=== PATIENT | female | born 1960 | race Caucasian/White ===

== ENCOUNTER 2016-06-09 11:14 | Emergency (ER) | payer OTHER ==
[~2016-06-09] VITALS: Ht 160 cm; Wt 69.3 kg
[~2016-06-09 11:14] MED LIST: ADVIN25050 INH; ALBUAER2 INH; AMLO10TA4 PO; ATEN-174 PO; CLOB-65 TOP; EFFSR150 PO; EFFSR75 PO; GFNSR600 PO; HYDR25TA4 PO; IPRASOL4 INH; LAMO25TA PO; LSN40 PO; LVQ750 PO; METF1TAB85 PO; SIMV10TA5 PO; SPRIN INH; TRAM-453 PO
[2016-06-09 11:16] VITALS: TEMP 37; Ht 160 cm; Wt 69.3 kg
[2016-06-09] MEDS ORDERED: SODIUM CHLORIDE 0.9% 500ML 500 ML IV STA (11:32)
[2016-06-09] MEDS ORDERED: OPTIRAY 320 IV PRN (11:45)
[2016-06-09 12:21] LABS: BASO % 0.3 %; BASO ABS # 0.02 K/uL (0-0.2); COMPLETE YES; EOS % 1.5 %; HEMATOCRIT 41.8 % (37-47); IG% 0.3 %; LYMPH % 30.2 %; LYMPH ABS # 1.85 K/uL (1.2-3.4); MEAN CELL VOLUME 92.5 fL (80-100); MEAN CORPUSCULAR HGB CONC 35.6 g/dl (32-36); MEAN PLATELET VOLUME 10.6 fL (7.4-10.4); MONO % 11.3 %; NEUT % 56.4 %; PLATELET COUNT 240 K/uL (130-400); RED BLOOD COUNT 4.52 M/uL (4.2-5.4); WHITE BLOOD COUNT 6.12 K/uL (4.8-10.8)
[2016-06-09 12:41] LABS: ALT/SGPT 51 U/L (12-78); AST/SGOT 32 U/L (15-37); BLOOD UREA NITROGEN 17 mg/dl (7-18); CALCIUM 8.7 mg/dl (8.5-10.1); CARBON DIOXIDE 25 mmol/L (21-32); CHLORIDE 104 mmol/L (98-107); CREATININE 0.98 mg/dl (0.60-1.20); GLUCOSE 98 mg/dl (70-99); POTASSIUM 3.5 mmol/L (3.5-5.1); SODIUM 141 mmol/L (136-145)
[2016-06-09 12:46] LABS: ALKALINE PHOSPHATASE 128 U/L (45-117)
--- NOTE | 2016-06-09 13:03 | DIAGNOSTIC IMAGING REPORT ---
CHEST ONE VIEW PORTABLE CLINICAL HISTORY: Abdominal pain and weakness. COMPARISON STUDY: Chest radiograph March 28, 2015. FINDINGS: Lung volumes are normal. Lungs are clear. There is no pneumothorax or pleural effusion. A nodular density within the left upper lung is unchanged from prior exam and may reflect a calcified nodule or vessel on end. Cardiac size is normal. Mediastinal contours are normal. There is no evidence of pulmonary edema. There is possible calcific tendinitis of the right rotator cuff. IMPRESSION: No acute cardiopulmonary findings. Electronically signed by: Beck Malloy M.D. 06/09/2016 1:02 PM Dictated Date/Time: 06/09/2016 1:01 PM
--- NOTE | 2016-06-09 13:56 | DIAGNOSTIC IMAGING REPORT ---
CT OF THE ABDOMEN AND PELVIS WITH CONTRAST CLINICAL HISTORY: Mid abdominal pain and nausea COMPARISON STUDY: None. TECHNIQUE: Following IV administration of 118 mL of Optiray-320, axial images of the abdomen and pelvis were obtained from the lung bases to the proximal femurs. Images were reviewed in the axial, sagittal, and coronal planes. IV contrast was administered without complication. CT DOSE: 338.44 mGy.cm FINDINGS: Visualized portions of the lower chest demonstrate a moderate sized hiatal hernia. The liver, spleen, adrenal glands, kidneys and pancreas are normal with the exception of left renal scarring. There is no hydronephrosis. There is no peripancreatic or pericholecystic infiltration. There is no biliary or pancreatic ductal dilatation. There is no bowel obstruction. The caliber and wall thickness of small and large bowel are normal. There is no lymphadenopathy. Skeletal structures are unremarkable. The appendix is normal. IMPRESSION: 1. No acute process within the abdomen or pelvis. 2. Moderate sized hiatal hernia. 3. Mild multifocal left renal scarring. Electronically signed by: Beck Malloy M.D. 06/09/2016 1:55 PM Dictated Date/Time: 06/09/2016 1:48 PM
[2016-06-09 14:23] VITALS: BP 147/70; PULSE 124; O2SAT 96
[2016-06-09 14:23] LABS: MANUAL MICROSCOPIC REQUIRED? NO; URINE APPEARANCE CLEAR (CLEAR); URINE BILIRUBIN NEG (NEG); URINE COLOR YELLOW; URINE NITRITE NEG (NEG); UROBILINOGEN NEG (NEG)
[2016-06-09 14:26] LABS: REVIEW REQ? NO
[2016-06-09 14:27] LABS: ZZUR CULT IF INDIC CLEAN CATCH NO
[2016-06-09] MEDS ORDERED: ONDA4TAB10 SL (14:44)
--- NOTE | 2016-06-09 14:48 | EMERGENCY ROOM VISIT NOTE ---
History First contact with patient: 11:20 Chief Complaint: ABDOMINAL PAIN Stated Complaint: FLU SYMPTOMS Nursing Triage Summary: PT C/O ABDOMINAL PAIN AND FLU LIKE SYMPTOMS. History of Present Illness The patient is a 56 year old female who presents to the Emergency Room with complaints of abdominal pain and generalized weakness over the past days. The patient states that over the past 4-5 days, she has had weakness, abdominal pain , and constipation. She states one of her family members does have the flu. The patient did receive a flu shot this year. She reports associated nausea, but no vomiting. She has had some mild coughing, but denies any chest pain or shortness of breath. The patient does report some mild body aches. She denies any fevers, sore throats, neck pain/stiffness, headaches, urinary symptoms or blood in her stools. She has a history of diabetes and was recently diagnosed with hepatitis C. Review of Systems A complete 10-point Review of Systems was discussed with the patient, with pertinent positives and negatives listed in the History of Present Illness. All remaining Review of Systems questions can be considered negative unless otherwise specified. Past Medical/Surgical History Medical Problems: (1) Bronchitis (2) Depression (3) Diabetes mellitus (4) Dyslipidemia (5) HTN (hypertension) Surgical Problems: (1) H/O hemorrhoidectomy Family History Patient reports no known family medical history. Social History Smoking Status: Current Every Day Smoker Alcohol Use: occasionally Current/Historical Medications Scheduled Amlodipine Besylate (Norvasc), 10 MG PO DAILY Atenolol (Tenormin), 50 MG PO DAILY Fluticasone Prop/Salmeterol (Advair Diskus 250-50 Mcg/Dose), 1 PUFF INH BID Guaifenesin Ext Rel (Mucinex Ext Rel), 600 MG PO Q12 Hydrochlorothiazide (Hctz), 25 MG PO DAILY Lamotrigine (Lamictal), 25 MG PO BID Lisinopril (Lisinopril), 40 MG PO DAILY Metformin Hcl (Metformin Hcl Er), 2 TAB PO DAILY Ondasetron Odt (Zofran Odt), 4 MG SL Q6H Simvastatin (Zocor), 10 MG PO QPM Tiotropium [place] (Spiriva Handihaler), 1 PUFF INH QAM Venlafaxine Hcl (Effexor Extended Rel), 75 MG PO DAILY Venlafaxine Hcl (Effexor Extended Rel), 150 MG PO DAILY Scheduled PRN Ipratropium-Albuterol (Duoneb), 3 ML INH Q4R PRN for dyspnea/wheezing Allergies Coded Allergies: Acetaminophen (Verified Allergy, Unknown, hives, 06/09/16) Oxycodone (Verified Allergy, Unknown, hives, 06/09/16) Physical Exam Vital Signs Date Time Temp Pulse Resp B/P Pulse Ox O2 Delivery O2 Flow Rate FiO2 06/09/16 14:23 124 18 147/70 96 Room Air 06/09/16 13:11 58 20 115/64 94 Room Air 06/09/16 11:57 70 06/09/16 11:16 37.0 73 18 118/82 96 Room Air Physical Exam VITALS: Vitals are noted on the nurse's note and reviewed by myself. Vital signs stable. GENERAL: This is a 56-year-old female, in no acute distress, nondiaphoretic, well-developed well-nourished. SKIN: Capillary reflex less than 2 seconds. HEENT: Normocephalic. PERRLA. EOMI. Nares patent. Mucous membranes moist. Neck is supple without nuchal rigidity. HEART: Regular rate and rhythm without murmurs gallops or rubs. LUNGS: Clear to auscultation bilaterally without wheezes, rales or rhonchi. ABDOMEN: Positive bowel sounds x 4. Abdomen is soft. There is tenderness of the epigastric region and mid abdomen. No guarding or rebound tenderness. Pompa sign negative. NEURO: Patient was alert and oriented to person place and time. Medical Decision & Procedures ER Provider Diagnostic Interpretation: CHEST ONE VIEW PORTABLE FINDINGS: Lung volumes are normal. Lungs are clear. There is no pneumothorax or pleural effusion. A nodular density within the left upper lung is unchanged from prior exam and may reflect a calcified nodule or vessel on end. Cardiac size is normal. Mediastinal contours are normal. There is no evidence of pulmonary edema. There is possible calcific tendinitis of the right rotator cuff. IMPRESSION: No acute cardiopulmonary findings. CT OF THE ABDOMEN AND PELVIS WITH CONTRAST FINDINGS: Visualized portions of the lower chest demonstrate a moderate sized hiatal hernia. The liver, spleen, adrenal glands, kidneys and pancreas are normal with the exception of left renal scarring. There is no hydronephrosis. There is no peripancreatic or pericholecystic infiltration. There is no biliary or pancreatic ductal dilatation. There is no bowel obstruction. The caliber and wall thickness of small and large bowel are normal. There is no lymphadenopathy. Skeletal structures are unremarkable. The appendix is normal. IMPRESSION: 1. No acute process within the abdomen or pelvis. 2. Moderate sized hiatal hernia. 3. Mild multifocal left renal scarring. Laboratory Results 06/09/16 11:52 Red Blood Count 4.52, Mean Corpuscular Volume 92.5, Mean Corpuscular Hemoglobin 33.0, Mean Corpuscular Hemoglobin Concent 35.6, Mean Platelet Volume 10.6, Neutrophils (%) (Auto) 56.4, Lymphocytes (%) (Auto) 30.2, Monocytes (%) (Auto) 11.3, Eosinophils (%) (Auto) 1.5, Basophils (%) (Auto) 0.3, Neutrophils # (Auto ) 3.45, Lymphocytes # (Auto) 1.85, Monocytes # (Auto) 0.69, Eosinophils # (Auto ) 0.09, Basophils # (Auto) 0.02 06/09/16 11:52 Test 06/09/16 11:44 06/09/16 11:52 06/09/16 14:10 Influenza Type A Antigen Neg for Influ A (NEG) Influenza Type B Antigen Neg for Influ B (NEG) White Blood Count 6.12 K/uL (4.8-10.8) Red Blood Count 4.52 M/uL (4.2-5.4) Hemoglobin 14.9 g/dL (12.0-16.0) Hematocrit 41.8 % (37-47) Mean Corpuscular Volume 92.5 fL (80-100) Mean Corpuscular Hemoglobin 33.0 pg (25-34) Mean Corpuscular Hemoglobin Concent 35.6 g/dl (32-36) Platelet Count 240 K/uL (130-400) Mean Platelet Volume 10.6 fL (7.4-10.4) Neutrophils (%) (Auto) 56.4 % Lymphocytes (%) (Auto) 30.2 % Monocytes (%) (Auto) 11.3 % Eosinophils (%) (Auto) 1.5 % Basophils (%) (Auto) 0.3 % Neutrophils # (Auto) 3.45 K/uL (1.4-6.5) Lymphocytes # (Auto) 1.85 K/uL (1.2-3.4) Monocytes # (Auto) 0.69 K/uL (0.11-0.59) Eosinophils # (Auto) 0.09 K/uL (0-0.5) Basophils # (Auto) 0.02 K/uL (0-0.2) RDW Standard Deviation 43.2 fL (36.4-46.3) RDW Coefficient of Variation 12.8 % (11.5-14.5) Immature Granulocyte % (Auto) 0.3 % Immature Granulocyte # (Auto) 0.02 K/uL (0.00-0.02) Anion Gap 12.0 mmol/L (3-11) Est Creatinine Clear Calc Drug Dose 59.1 ml/min Estimated GFR () 74.2 Estimated GFR (Non- 64.0 BUN/Creatinine Ratio 17.0 (10-20) Calcium Level 8.7 mg/dl (8.5-10.1) Total Bilirubin 0.3 mg/dl (0.2-1) Aspartate Amino Transf (AST/SGOT) 32 U/L (15-37) Alanine Aminotransferase (ALT/SGPT) 51 U/L (12-78) Alkaline Phosphatase 128 U/L (45-117) Troponin I < 0.015 ng/ml (0-0.045) Total Protein 7.1 gm/dl (6.4-8.2) Albumin 3.5 gm/dl (3.4-5.0) Globulin 3.6 gm/dl (2.5-4.0) Albumin/Globulin Ratio 1.0 (0.9-2) Lipase 317 U/L (73-393) Urine Color YELLOW Urine Appearance CLEAR (CLEAR) Urine pH 6.0 (4.5-7.5) Urine Specific [place] 1.010 (1.000-1.030) Urine Protein NEG (NEG) Urine Glucose (UA) NEG (NEG) Urine Ketones NEG (NEG) Urine Occult Blood NEG (NEG) Urine Nitrite NEG (NEG) Urine Bilirubin NEG (NEG) Urine Urobilinogen NEG (NEG) Urine Leukocyte Esterase NEG (NEG) Medications Administered Medications (Trade) Dose Ordered Sig/Chacha Route Start Time Stop Time Status Last Admin Dose Admin Sodium Chloride (Nss 500ml) 500 ml @ 999 mls/hr Q31M STAT IV 2/12/17 11:32 06/09/16 12:02 DC 06/09/16 11:56 999 MLS/HR Medical Decision Differential diagnosis includes influenza, gastroenteritis, colitis, diverticulitis, pneumonia, viral syndrome among others. The patient was evaluated as above. Labs were drawn and IV access was obtained. Imaging studies were performed and read by radiology as above. The patient was medicated with a 500 mL bolus of normal saline. The patient was reassessed multiple times during their stay in the emergency department and remained in stable condition. The patient is a 56-year-old female who presents today complaining of generalized weakness, fatigue and mid abdominal pain. Labs revealed no leukocytosis, anemia or concerning electrolyte abnormalities. Urinalysis was not suggestive of infection. Influenza was negative. CT of the abdomen and pelvis showed no acute findings. Chest x-ray was unremarkable. The patient's symptoms are likely secondary to a viral illness. She was informed of all findings. She was given a prescription for Zofran for nausea. She was instructed to follow-up with her primary care provider for further evaluation of any ongoing symptoms. Based on the patient's presentation, lab results, and imaging studies, I feel the patient is stable for outpatient treatment. The patient's case was reviewed with Dr. Rios, ED attending physician, who agreed with my assessment and treatment plan. Discharge instructions were reviewed with the patient. The patient verbalized understanding of my assessment and treatment plan and was discharged home in good condition. Impression Primary Impression: Epigastric abdominal pain Additional Impression: Fatigue Departure Information Dispostion Home / Self-Care Condition GOOD Prescriptions Ondasetron Odt (ZOFRAN ODT) 4 Mg Tab 4 MG SL Q6H for Nausea, #15 TAB Prov: Lynn Alan .SHERRELL 06/09/16 Referrals Breana Garcia M.D. (PCP) Patient Instructions My [facility] Additional Instructions You have been prescribed Zofran to be used for any nausea or vomiting. Take as prescribed. Rest and drink plenty of fluids. Follow-up with your primary care provider in 2-3 days. Return to the emergency department with worsening of your current condition or any new/concerning symptoms. Problem Qualifiers Additional Impression: Fatigue Fatigue type: unspecified Qualified Codes: R53.83 - Other fatigue
== END 2016-06-09 14:45 | disposition home or self-care (01) ==
LOC: C.EDB 11:15 → C.EDA 14:45
DX: R10.13 Epigastric pain (principal); R53.83 Other fatigue; E11.9 Type 2 diabetes mellitus without complications; I10 Essential (primary) hypertension; F32.9 Major depressive disorder, single episode, unspecified; E78.5 Hyperlipidemia, unspecified; B19.20 Unspecified viral hepatitis C without hepatic coma; F17.200 Nicotine dependence, unspecified, uncomplicated; Z98.890 Other specified postprocedural states; Z79.84 Long term (current) use of oral hypoglycemic drugs; Z79.899 Other long term (current) drug therapy

== ENCOUNTER 2016-07-01 10:45 | Emergency (ER) | payer OTHER ==
[~2016-07-01] VITALS: Ht 160 cm; Wt 70.0 kg
[~2016-07-01 10:45] MED LIST changes: -ALBUAER2 INH; -CLOB-65 TOP; -LVQ750 PO; +ONDA4TAB10 SL; -TRAM-453 PO
[2016-07-01 10:47] VITALS: TEMP 37.2; Ht 160 cm; Wt 70.0 kg
--- NOTE | 2016-07-01 11:22 | DIAGNOSTIC IMAGING REPORT ---
LEFT KNEE 3 VIEWS CLINICAL HISTORY: Left knee pain status post trauma COMPARISON: None. DISCUSSION: No acute fractures are visualized. There are degenerative changes with lateral joint compartment spurring. There are tiny dorsal patellar spurs. There is a subtle lucency involving the lateral aspect of the medial femoral condyle. An osteochondral defect cannot be excluded. The patient has persistent pain, an MRI could be obtained in follow-up IMPRESSION: 1. No acute fractures 2. Osteoarthritic changes 3. Subtle lucency involving the lateral aspect of the medial femoral condyle. An osteochondral defect cannot be excluded. Electronically signed by: Jackson Bonilla M.D. 07/01/2016 11:20 AM Dictated Date/Time: 07/01/2016 11:19 AM
[2016-07-01 11:40] VITALS: BP 122/78; PULSE 69; O2SAT 96
--- NOTE | 2016-07-02 11:00 | EMERGENCY ROOM VISIT NOTE ---
ED Visit Note First contact with patient: 10:56 Chief Complaint: Left knee pain. History of Present Illness: Ms. Parks is a 56-year-old white female who is brought into the ED the wheelchair complaining of left knee pain. Patient reports she has a history of her knee "popping out". From her description of this it appears that she may be able to dislocate or subluxate her patella. She has never had this evaluated in the past. Patient reports approximately 2 hours ago she was standing at a kitchen counter and pulling out a drawer and her knee popped out. Since that time she has been having pain over the anterior aspect of the knee predominately over the anterior medial tibia area. She describes her pain as a sharp sensation. She rates her discomfort 8/10. The pain is nonradiating. The pain worsens with flexion beyond 20 and palpation. She has not identified any alleviating factors related to the pain. She has not taken any medications for pain prior to arrival at the hospital. She denies any associated symptoms including hip pain, proximal thigh pain, distal tibia/fibula pain, ankle pain, leg/foot weakness/numbness/tingling. Additionally she denies any previous significant injuries or surgeries to the knee. Review of Systems: As noted above in history of present illness. Past Medical History: Diabetes, hypertension, bronchitis, pneumonia, status post hemorrhoidectomy. Current Medications: Medications Dose Route/Sig Max Daily Dose Days Date Category Dose Instructions Zofran Odt (Ondansetron HCl) 4 Mg Tab 4 Mg SL Q6H 06/09/16 Rx Duoneb (Ipratropium-Albuterol) 3 Ml Nebu 3 Ml INH Q4R PRN 03/31/15 Rx Lamictal (Lamotrigine) 25 Mg Tab 25 Mg PO BID 03/16/15 Reported Metformin Hcl Er (Metformin Hcl) 500 Mg Tab 2 Tab PO DAILY 90 03/16/15 Reported Norvasc (Amlodipine Besylate) 10 Mg Tab 10 Mg PO DAILY 03/16/15 Reported Zocor (Simvastatin) 10 Mg Tab 10 Mg PO QPM 03/16/15 Reported Hctz (Hydrochlorothiazide) 25 Mg Tab 25 Mg PO DAILY 03/16/15 Reported Effexor Extended Rel (Venlafaxine Hcl) 150 Mg Capcr 150 Mg PO DAILY 03/16/15 Reported TAKE WITH THE 75MG DOSE Effexor Extended Rel (Venlafaxine Hcl) 75 Mg Capcr 75 Mg PO DAILY 03/16/15 Reported TAKE WITH THE 150MG DOSE Tenormin (Atenolol) 50 Mg Tab 50 Mg PO DAILY 03/16/15 Reported Lisinopril 40 Mg Tab 40 Mg PO DAILY 03/16/15 Reported Allergies to Medications: Tylenol, oxycodone. Social History: Patient is currently employed; she feels safe in her home environment; she admits to tobacco and alcohol use. Physical Examination: Vital Signs: Date Time Temp Pulse Resp B/P Pulse Ox O2 Delivery O2 Flow Rate FiO2 07/01/16 11:40 69 20 122/78 96 Room Air 07/01/16 10:47 37.2 79 18 106/68 96 Room Air GENERAL: 56-year-old female in mild to moderate distress due to pain, nontoxic- appearing, afebrile and hemodynamically stable. NEUROLOGICAL: Awake, alert and oriented to person, place and time. Answering questions appropriately and following commands. Good hand eye coordination. No focal motor sensory deficits. LEFT LOWER EXTREMITY: No gross bony deformity. No shortening or malrotation. No tenderness over the hip, thigh, distal lower leg, ankle or foot. Mild to moderate tenderness over the anterior medial aspect of the tibia without bony deformity or crepitus. No tenderness over the tibial tuberosity or patellar tendon. No joint effusion. Negative bounce test. No tenderness over the medial or lateral joint lines. No laxity of the collateral or cruciate ligaments. No tenderness over the patella. Negative ballottement test. Unable to test the meniscus due to decreased range of motion and pain. With the knee stabilized patient does have full range of motion of the ankle with good muscle strength. Throughout the foot the skin was warm and pink and capillary refill is brisk. She is able to distinguish light sensations. No calf tenderness or cords. No dependent edema. ED Course: Patient is assessed as noted above. Left Knee X-Rays: Were read by myself and the radiologist showing no acute fractures or dislocations. Radiologist notes osteoarthritic changes and a subtle lucency involving the lateral aspect of the medial femoral condyle of questionable etiology. Patient was offered pain medications and refused. Patient was offered a knee immobilizer and nonweightbearing crutches and refused. Patient agreed to have an Nicholas wrap put on the area for support. Patient was educated about tonight's findings and instructed on her treatment plan; she verbalizes understanding and agreement with this plan. Clinical Impression: Acute left knee pain. Disposition: Patient discharged home in stable condition; prior to departure she was reassessed and subjectively reported she was feeling better and rated her discomfort 3/10. Plan: Patient was encouraged use 650 mg of ibuprofen every 6 hours as needed for pain ; she was instructed to take this with food and stop for stomach pain or indigestion. Additional comfort measures were discussed with the patient including the use of ice and Nicholas bandage support. Patient was encouraged to follow-up with orthopedics for specialty care and treatment. Patient was encouraged return ED for worsening/uncontrolled pain, swelling, lower leg weakness/numbness/tingling or any new/concerning symptoms.
== END 2016-07-01 11:45 | disposition home or self-care (01) ==
LOC: C.EDB 10:47 → C.EDD 11:45
DX: M25.562 Pain in left knee (principal); E11.9 Type 2 diabetes mellitus without complications; I10 Essential (primary) hypertension; Z79.899 Other long term (current) drug therapy

== ENCOUNTER 2017-01-17 13:25 | Emergency (ER) | payer OTHER ==
[~2017-01-17] VITALS: Ht 160 cm; Wt 71.0 kg
[~2017-01-17 13:25] MED LIST changes: -ADVIN25050 INH; -GFNSR600 PO; -ONDA4TAB10 SL; -SPRIN INH
[2017-01-17 13:27] VITALS: TEMP 36.9; Ht 160 cm; Wt 71.0 kg
--- NOTE | 2017-01-17 13:56 | EMERGENCY ROOM VISIT NOTE ---
History First contact with patient: 13:34 Chief Complaint: DIARRHEA Stated Complaint: DIARRHEA, WEAKNESS Nursing Triage Summary: pt to the ED with c/o all over abd pain back pain and n/v/d and weakness that started today while at work History of Present Illness The patient is a 56 year old female who presents to the Emergency Room with complaints of nausea, vomiting and diarrhea for 4 days. The patient's symptoms started 4 days ago with diarrhea. She then became nauseated and had multiple episodes of vomiting. She denies any significant abdominal pain. She denies any fever or chills. The patient felt fairly good for the last 2 days. Her symptoms returned today at work. She feels very weak. She denies any dark stools or bloody stools. No hematemesis or coffee-ground emesis. She denies any sick contacts. No antibiotic use. The patient does not have well water, however she was staying at a relative's house that does. Review of Systems 10 system review performed and negative unless noted in HPI or below Past Medical/Surgical History Medical Problems: (1) Bronchitis (2) Depression (3) Diabetes mellitus (4) Dyslipidemia (5) HTN (hypertension) Surgical Problems: (1) H/O hemorrhoidectomy Family History Patient reports no known family medical history. Social History Smoking Status: Current Every Day Smoker Alcohol Use: occasionally Occupation Status: employed Current/Historical Medications Scheduled Amlodipine Besylate (Norvasc), 10 MG PO DAILY Aspirin (Aspirin Ec), 81 MG PO DAILY Atenolol (Tenormin), 50 MG PO DAILY Dicyclomine Hcl (Bentyl), 20 MG PO Q8H Hydrochlorothiazide (Hctz), 25 MG PO DAILY Lamotrigine (Lamictal), 25 MG PO BID Lisinopril (Lisinopril), 40 MG PO DAILY Metformin Hcl (Metformin Hcl Er), 2 TAB PO DAILY Ondasetron Odt (Zofran Odt), 4 MG SL Q6H Simvastatin (Zocor), 10 MG PO QPM Venlafaxine Hcl (Effexor Extended Rel), 75 MG PO DAILY Venlafaxine Hcl (Effexor Extended Rel), 150 MG PO DAILY Scheduled PRN Ipratropium-Albuterol (Duoneb), 3 ML INH Q4R PRN for dyspnea/wheezing Physical Exam Vital Signs Date Time Temp Pulse Resp B/P (MAP) Pulse Ox O2 Delivery O2 Flow Rate FiO2 01/17/17 18:01 83 18 126/73 95 01/17/17 16:26 71 01/17/17 16:07 96 18 118/72 96 Room Air 01/17/17 14:14 75 16 105/60 97 Room Air 01/17/17 13:27 36.9 103 16 108/71 Physical Exam VITALS: Vitals are noted on the nurse's note and reviewed by myself. Vital signs stable. GENERAL: 56-year-old female, moderate discomfort SKIN: The skin was without rashes, erythema, edema, or bruising. HEAD: Normocephalic atraumatic. MOUTH: Mucous membranes dry. NECK: . No JVD. HEART: Regular rate and rhythm without murmurs gallops or rubs. LUNGS: Clear to auscultation bilaterally without wheezes, rales or rhonchi. No accessory muscle use. ABDOMEN: Positive bowel sounds x 4.Soft, no focal tenderness, without organomegaly. No guarding or rebound tenderness. MUSCULOSKELETAL: No muscle atrophy, erythema, or edema noted. Strength 5/5 throughout. NEURO: Patient was alert and oriented to person place and time. Normal sensation to touch. No focal neurological deficits. Medical Decision & Procedures Laboratory Results 01/17/17 14:05 Red Blood Count 4.16, Mean Corpuscular Volume 95.0, Mean Corpuscular Hemoglobin 32.9, Mean Corpuscular Hemoglobin Concent 34.7, Mean Platelet Volume 10.8, Neutrophils (%) (Auto) 81.6, Lymphocytes (%) (Auto) 14.4, Monocytes (%) (Auto) 3.1, Eosinophils (%) (Auto) 0.5, Basophils (%) (Auto) 0.2, Neutrophils # (Auto) 10.39, Lymphocytes # (Auto) 1.83, Monocytes # (Auto) 0.39, Eosinophils # (Auto) 0.07, Basophils # (Auto) 0.02 01/17/17 14:05 Test 01/17/17 14:05 White Blood Count 12.73 K/uL (4.8-10.8) Red Blood Count 4.16 M/uL (4.2-5.4) Hemoglobin 13.7 g/dL (12.0-16.0) Hematocrit 39.5 % (37-47) Mean Corpuscular Volume 95.0 fL (80-100) Mean Corpuscular Hemoglobin 32.9 pg (25-34) Mean Corpuscular Hemoglobin Concent 34.7 g/dl (32-36) Platelet Count 318 K/uL (130-400) Mean Platelet Volume 10.8 fL (7.4-10.4) Neutrophils (%) (Auto) 81.6 % Lymphocytes (%) (Auto) 14.4 % Monocytes (%) (Auto) 3.1 % Eosinophils (%) (Auto) 0.5 % Basophils (%) (Auto) 0.2 % Neutrophils # (Auto) 10.39 K/uL (1.4-6.5) Lymphocytes # (Auto) 1.83 K/uL (1.2-3.4) Monocytes # (Auto) 0.39 K/uL (0.11-0.59) Eosinophils # (Auto) 0.07 K/uL (0-0.5) Basophils # (Auto) 0.02 K/uL (0-0.2) RDW Standard Deviation 44.2 fL (36.4-46.3) RDW Coefficient of Variation 12.8 % (11.5-14.5) Immature Granulocyte % (Auto) 0.2 % Immature Granulocyte # (Auto) 0.03 K/uL (0.00-0.02) Anion Gap 11.0 mmol/L (3-11) Est Creatinine Clear Calc Drug Dose 48.9 ml/min Estimated GFR () 58.1 Estimated GFR (Non- 50.1 BUN/Creatinine Ratio 24.3 (10-20) Calcium Level 9.7 mg/dl (8.5-10.1) Magnesium Level 2.2 mg/dl (1.8-2.4) Total Bilirubin 0.3 mg/dl (0.2-1) Aspartate Amino Transf (AST/SGOT) 27 U/L (15-37) Alanine Aminotransferase (ALT/SGPT) 49 U/L (12-78) Alkaline Phosphatase 128 U/L (45-117) Total Protein 6.8 gm/dl (6.4-8.2) Albumin 3.3 gm/dl (3.4-5.0) Globulin 3.5 gm/dl (2.5-4.0) Albumin/Globulin Ratio 0.9 (0.9-2) Lipase 148 U/L (73-393) Date/Time Source Procedure Growth Status 01/17/17 15:36 Stool C.difficile Toxin B Gene (PCR) - Final No C. difficile toxin B gene detected Complete Medications Administered Medications (Trade) Dose Ordered Sig/Chacha Route Start Time Stop Time Status Last Admin Dose Admin Ondansetron HCl (Zofran Inj) 4 mg Q2H PRN IV 01/17/17 14:00 01/17/17 18:36 DC 01/17/17 14:11 4 MG Dicyclomine HCl (Bentyl Tab) 20 mg ONE ONCE PO 01/17/17 14:00 01/17/17 14:01 DC 01/17/17 14:21 20 MG Sodium Chloride 1,000 ml @ 999 mls/hr Q1H1M ONCE IV 01/17/17 14:00 01/17/17 15:00 DC 01/17/17 14:12 999 MLS/HR Sodium Chloride 1,000 ml @ 999 mls/hr Q1H1M ONCE IV 01/17/17 14:00 01/17/17 15:00 DC 01/17/17 14:12 999 MLS/HR Potassium Chloride (Kcl 10 Meq / Wtr) 10 meq NOW ONCE IV 01/17/17 15:45 01/17/17 15:46 DC 01/17/17 16:01 10 MEQ ED Course Patient was seen and examined Vital signs including blood pressure were reviewed medications list was verified with patient Labs were obtained, and a saline lock was established The patient was hydrated with 2 L of normal saline. She was given Zofran 4 mg IV for nausea. She was given 1 dose of Bentyl 20 mg po Upon reevaluation, the patient was resting comfortably in bed. Her nausea was better. Her workup was reviewed. The findings were discussed with the patient. She tolerated water without difficulty. I reviewed discharge instructions the patient. They voiced understanding and had no further questions. Medical Decision DIFFERENTIAL DIAGNOSIS: Gastroenteritis, Hepatitis, cholecystitis, cholangitis, biliary colic, pancreatitis, appendicitis, inguinal hernia, nephrolithiasis, inflammatory bowel disease, mesenteric adenitis, peptic ulcer disease, GERD, gastritis, pancreatitis,, bowel obstruction, splenic infarct, diverticulitis, mesenteric ischemia, metabolic, peritonitis, among others. This patient is a 56-year-old female that presents to the emergency department with complaints of nausea, vomiting and diarrhea. The patient did not have any focal abdominal tenderness. No signs of peritonitis. I did not suspect a surgical abdomen. She was hydrated and had good symptomatic control with Zofran and Bentyl in the emergency department. There was mild leukocytosis likely coinciding with a possible viral GI infection. Otherwise, her labs were unremarkable. She was given a prescription for an antiemetic and Bentyl. She was discharged in good condition. She did agree to return to the emergency department with any worsening symptoms. Otherwise, she will follow up with her primary care physician if her symptoms persist greater than 3-5 days. 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 (PCP) Patient Instructions [facility] Additional Instructions You were evaluated in the emergency department with nausea, vomiting and diarrhea. Follow clear liquid diet for the next 24 hours. This includes things such as mehnaz justo, broth, popsicles Zofran 4 mg tabs. Please take one sublingual tab every 6 hours as needed for nausea Bentyl 20 mg tabs. Please take 1 every 8 hours as needed for abdominal cramping. Please do not drink alcohol or drive well taking this medication as it will make you drowsy. Please follow-up with your primary care physician if your symptoms persist greater than 3 days Return to the emergency department if you have any of the following symptoms: -Fever of 103F or greater -Persistent vomiting - Persistent diarrhea -Lethargy -Chest pain -Shortness of breath -Worsening pain Work Instructions Return To Work: 2 days
[2017-01-17] MEDS ORDERED: ONDANSETRON INJ 2 MG/ML 2 ML VIAL IV PRN (14:00)
[2017-01-17] MEDS ORDERED: SODIUM CHLORIDE 0.9% 1000ML 1,000 ML IV ONE ×2 (14:00)
[2017-01-17] MEDS ORDERED: DICYCLOMINE HCL 20 MG TAB PO ONE (14:00)
[2017-01-17 14:28] LABS: BASO % 0.2 %; BASO ABS # 0.02 K/uL (0-0.2); COMPLETE YES; EOS % 0.5 %; HEMATOCRIT 39.5 % (37-47); IG% 0.2 %; LYMPH % 14.4 %; LYMPH ABS # 1.83 K/uL (1.2-3.4); MEAN CORPUSCULAR HEMOGLOBIN 32.9 pg (25-34); MEAN CORPUSCULAR HGB CONC 34.7 g/dl (32-36); MEAN PLATELET VOLUME 10.8 fL (7.4-10.4); MONO % 3.1 %; NEUT % 81.6 %; PLATELET COUNT 318 K/uL (130-400); RED BLOOD COUNT 4.16 M/uL (4.2-5.4); WHITE BLOOD COUNT 12.73 K/uL (4.8-10.8)
[2017-01-17 14:55] LABS: ALB/GLOB RATIO 0.9 (0.9-2); BUN/CREATININE RATIO 24.3 (10-20); CALCIUM 9.7 mg/dl (8.5-10.1); CREATININE 1.2 mg/dl (0.60-1.20)
[2017-01-17 14:58] LABS: POTASSIUM 3.4 mmol/L (3.5-5.1)
[2017-01-17 15:03] LABS: MAGNESIUM 2.2 mg/dl (1.8-2.4)
[2017-01-17] MEDS ORDERED: POTASSIUM CHLORIDE 10 MEQ / 100ML WTR IV ONE (15:45)
[2017-01-17] MEDS ORDERED: ASPI81TA28 PO (17:06)
[2017-01-17] MEDS ORDERED: DICY20TA35 PO (17:24)
[2017-01-17] MEDS ORDERED: ONDA4TAB10 SL (17:24)
[2017-01-17 18:01] VITALS: BP 126/73; PULSE 83; O2SAT 95
== END 2017-01-17 18:02 | disposition home or self-care (01) ==
LOC: C.EDB 13:27
DX: R11.2 Nausea with vomiting, unspecified (principal); R19.7 Diarrhea, unspecified; E11.9 Type 2 diabetes mellitus without complications; I10 Essential (primary) hypertension; E78.5 Hyperlipidemia, unspecified; F32.9 Major depressive disorder, single episode, unspecified; F17.200 Nicotine dependence, unspecified, uncomplicated; Z98.890 Other specified postprocedural states; Z79.82 Long term (current) use of aspirin; Z79.84 Long term (current) use of oral hypoglycemic drugs; Z79.899 Other long term (current) drug therapy

== ENCOUNTER 2019-09-22 22:32 | Observation (INO) ==
[2019-09-22] MEDS ORDERED: GLUCAGON 2 MG in SYRINGE 0 ML IV STA (22:53)
[2019-09-22] MEDS ORDERED: LORazepam 1 MG/2 ML VIAL IV STA (22:53)
[2019-09-22] MEDS ORDERED: NITROGLYCERIN SL 0.4 MG/TAB TAB SL STA (22:53)
[2019-09-22] MEDS ORDERED: SODIUM CHLORIDE 0.9% 1000ML 500 ML IV ONE (22:53)
[2019-09-22] MEDS ORDERED: GLUCAGON FOR INJ 1 MG VIAL ONE (22:57)
--- NOTE | 2019-09-22 22:57 | Emergency Department Note ---
Impression & Plan Acute esophageal obstruction, Precordial chest pain ED Provider Note NAME: ADDISON TERRELL AGE: 59 SEX: F : 1960 ARRIVES VIA: Walk-In INFORMANT: [Patient] ED PROVIDER(S): [Adryan Holbrook MD] CHIEF COMPLAINT: Food bolus HISTORY OF PRESENT ILLNESS: The patient is a 59-year-old female who presents to the ER with 2 hours of symptoms. She states that she was eating cubed beef when she felt something get caught in her esophagus. There was no difficulty with her breathing, no choking. She cannot swallow her saliva. She states that feels like the food may be caught in the upper esophagus, she describes the pain as severe. She does feel nauseated. The patient was in baseline health earlier, she had felt well throughout the best part of the day. The patient states that she did not ever have this issue before. REVIEW OF SYSTEMS: See HPI for pertinent positives and negatives. A total of ten systems were reviewed and were otherwise negative. PMHx/PSHx: See Below SOCIAL HISTORY: See Below. PHYSICAL EXAM: GENERAL: Patient is in moderate distress from the discomfort of her esophagus. Spitting out her saliva. HEENT: No acute trauma, normocephalic atraumatic, mucous membranes moist, no nasal congestion, no scleral icterus. NECK: No stridor, no adenopathy, no meningismus, trachea is midline. LUNGS: Clear to auscultation bilaterally, no wheeze, no rhonchi, breath sounds equal. HEART: No murmurs, there is a somewhat irregular rhythm, the rate is normal. ABDOMEN: Soft, nontender, bowel sounds positive, no hernias, no peritonitis. EXTREMITIES: No cyanosis or edema, full range of motion of all the joints without pain or difficulty, no signs for acute trauma. NEUROLOGIC: Oriented x 3, no acute motor or sensory deficits, no focal weakness. SKIN: No rash, no jaundice, no diaphoresis. DIFFERENTIAL DIAGNOSIS: Esophageal food bolus, esophageal stricture, esophageal ring, esophageal narrowing, esophagitis, esophageal rupture. EMERGENCY DEPARTMENT COURSE/PROCEDURES: ECG: Indication was chest pain. The EKG shows a sinus rhythm with multiple PVCs. The rate is 78. QTc is 469. There is no ST elevation. Continuous Cardiac Monitoring: An order was placed for continuous cardiac monitoring. The monitor shows a rate of 76 with sinus rhythm with PVCs. MEDICAL DECISION MAKING: There is a mild leukocytosis, this could be consistent with infection or just her stress and discomfort. There was no anemia. No significant electrolyte abnormality or kidney failure. Chest film did not show evidence for esophageal rupture, there was no mediastinal widening, no pneumonia or CHF. EKG showed sinus rhythm with PVCs. On exam, the patient seemed uncomfortable. She felt a fullness in her esophagus, she was spitting out her saliva. Patient received IV glucagon, IV Ativan and nitroglycerin sublingual, she was given a 500 cc saline bolus. Unfortunately, the medications mentioned above did not help her symptoms. She was still unable to swallow her saliva. I did speak with GI. The patient is going to the endoscopy suite for removal of her esophageal food impaction. The patient is aware of the need for the endoscopy. Case management has been informed. Past Med/Surg History Medical History Depression (Chronic) Diabetes mellitus (Chronic) Dyslipidemia (Chronic) Epigastric abdominal pain (Acute) HTN (hypertension) (Chronic) Surgical History H/O hemorrhoidectomy (Chronic) Family History Other Diabetes Heart disease Hypertension Social History Preferred Language: Dominican Feels Safe at Home: Yes Smoking Status: Current every day smoker Do You Dip or Chew Tobacco: No ; Hx Alcohol Use: No Hx Substance Use: No Allergies Allergies Allergy/AdvReac Type Severity Reaction Status Date / Time acetaminophen Allergy Unknown hives Verified 09/22/19 23:18 oxycodone Allergy Unknown hives Verified 09/22/19 23:18 Home Meds Home Medications Medication Instructions Recorded Confirmed amlodipine 10 mg PO QPM 05/21/18 09/22/19 diclofenac sodium 75 mg PO PM 05/21/18 09/22/19 lamotrigine 25 mg PO PM 05/21/18 09/22/19 lisinopril 40 mg PO QPM 05/21/18 09/22/19 metformin 1,000 mg PO PM 05/21/18 09/22/19 metoprolol succinate 50 mg PO QPM 05/21/18 09/22/19 venlafaxine 75 mg PO QPM 05/21/18 09/22/19 venlafaxine 150 mg PO QPM 05/21/18 09/22/19 rosuvastatin 5 mg PO DAILY 09/22/19 09/22/19 Previous Rx's Medication Instructions Recorded albuterol sulfate [Proventil HFA] 2 inha INH Q6H PRN #6.7 gm 07/12/18 Results & Data (ED) Vital Signs Vital Signs - 24 hr 09/22/19 22:33 09/22/19 22:42 09/22/19 22:45 Temperature 36.9 C Temperature Source Oral Pulse Rate 78 85 85 Pulse Rate [Right Finger] Pulse Rate from SpO2 Sensor 69 59 L Respiratory Rate 20 24 31 H Respiratory Effort / Characteristics Non-Labored Respiratory Depth Normal Respiratory Pattern Regular Blood Pressure 158/98 H 139/108 H Blood Pressure [Right Arm] Blood Pressure Mean 118 129 Blood Pressure Mean [Right Arm] Pulse Oximetry 96 95 93 Oxygen Delivery Method Room Air Oxygen Flow Rate Sepsis Recent Fever Within 48 Hours No Sepsis Action Taken by Nursing No Action Required 09/22/19 23:00 09/22/19 23:20 09/22/19 23:30 Temperature Temperature Source Pulse Rate 76 86 68 Pulse Rate [Right Finger] Pulse Rate from SpO2 Sensor Respiratory Rate 13 27 H 25 H Respiratory Effort / Characteristics Respiratory Depth Respiratory Pattern Blood Pressure 168/95 H 125/82 Blood Pressure [Right Arm] Blood Pressure Mean 128 95 Blood Pressure Mean [Right Arm] Pulse Oximetry 94 87 L 89 L Oxygen Delivery Method Oxygen Flow Rate Sepsis Recent Fever Within 48 Hours Sepsis Action Taken by Nursing 09/22/19 23:31 09/22/19 23:32 09/22/19 23:40 Temperature Temperature Source Pulse Rate 76 75 74 Pulse Rate [Right Finger] Pulse Rate from SpO2 Sensor 76 75 Respiratory Rate 26 H 22 19 Respiratory Effort / Characteristics Respiratory Depth Respiratory Pattern Blood Pressure 129/60 Blood Pressure [Right Arm] Blood Pressure Mean 93 Blood Pressure Mean [Right Arm] Pulse Oximetry 92 91 95 Oxygen Delivery Method Oxygen Flow Rate Sepsis Recent Fever Within 48 Hours Sepsis Action Taken by Nursing 09/22/19 23:50 09/23/19 00:00 09/23/19 00:01 Temperature Temperature Source Pulse Rate 83 82 78 Pulse Rate [Right Finger] Pulse Rate from SpO2 Sensor 80 77 73 Respiratory Rate 28 H 26 H 24 Respiratory Effort / Characteristics Respiratory Depth Respiratory Pattern Blood Pressure 145/90 H Blood Pressure [Right Arm] Blood Pressure Mean 101 Blood Pressure Mean [Right Arm] Pulse Oximetry 93 92 93 Oxygen Delivery Method Oxygen Flow Rate Sepsis Recent Fever Within 48 Hours Sepsis Action Taken by Nursing 09/23/19 00:10 Temperature Temperature Source Pulse Rate Pulse Rate [Right Finger] 102 H Pulse Rate from SpO2 Sensor Respiratory Rate 23 Respiratory Effort / Characteristics Respiratory Depth Respiratory Pattern Blood Pressure Blood Pressure [Right Arm] 145/90 H Blood Pressure Mean Blood Pressure Mean [Right Arm] 108 Pulse Oximetry 96 Oxygen Delivery Method Nasal Cannula Oxygen Flow Rate 2 Sepsis Recent Fever Within 48 Hours Sepsis Action Taken by Longterm Medications Current Medication List: was personally reviewed by me Laboratory Data Attestation: I reviewed the patient's lab results. Result diagrams: 09/22/19 22:40 09/22/19 22:40 Lab Results 09/22/19 09/22/19 Range/Units 22:40 22:40 WBC 13.10 H (4.8-10.8) K/uL RBC 4.58 (4.2-5.4) M/uL Hgb 14.6 (12.0-16.0) g/dL Hct 42.7 (37-47) % MCV 93.2 (80-100) fL MCH 31.9 (25-34) pg MCHC 34.2 (32-36) g/dL RDW Std Deviation 46.1 (36.4-46.3) fL RDW Coeff of Mike 13.6 (11.5-14.5) % Plt Count 350 (130-400) K/uL MPV 11.4 H (7.4-10.4) fL Sodium 139 (136-145) mmol/L Potassium 3.6 (3.5-5.1) mmol/L Chloride 106 (98-107) mmol/L Carbon Dioxide 28 (21-32) mmol/L Anion Gap 5.0 (3-11) BUN 23 H (7-18) mg/dl Creatinine 0.99 (0.6-1.2) mg/dl Est Cr Clr Drug Dosing Not Reportable Est GFR ( Amer) 71.8 Est GFR (Non-Af Amer) 61.9 BUN/Creatinine Ratio 23.3 H (10-20) Glucose 166 H (70-99) mg/dl Calcium 9.3 (8.5-10.1) mg/dl Administered Medications Discontinued Medications Glucagon (Glucagen) Confirm Administered Dose 2 mg .ROUTE .STK-MED ONE Stop: 09/22/19 22:58 Last Admin: 09/22/19 23:03 Dose: Not Given Documented by: [id number] Sodium Chloride (Nss 1000ml) 500 mls @ 999 mls/hr IV .Q31M ONE Stop: 09/22/19 23:23 Last Infusion: 09/22/19 23:39 Dose: 0 mls/hr Documented by: [id number] Admin: 09/22/19 23:03 Dose: 999 mls/hr Documented by: [id number] Lorazepam (Ativan) 1 mg in 2 mls @ 2 mls/min IV NOW STA Stop: 09/22/19 22:54 Last Admin: 09/22/19 23:03 Dose: 2 mls/min Documented by: [id number] Glucagon 2 mg/ Syringe 2 mls @ 1 mls/min IV NOW STA Stop: 09/22/19 22:54 Last Admin: 09/22/19 23:03 Dose: 1 mls/min Documented by: [id number] Nitroglycerin (Nitrostat) 0.4 mg SL NOW STA Stop: 09/22/19 22:54 Last Admin: 09/22/19 23:03 Dose: 0.4 mg Documented by: [id number] Imaging Data Attestation: I personally reviewed and interpreted this imaging study as follows: My Impression: Chest x-ray: There is no mediastinal widening, no pneumonia or cardiomegaly, there is no CHF. The lungs appear clear. Blood Pressure Blood Pressure Findings: Elevated blood pressure Blood Pressure Disposition: Referred to patients primary care provider Discharge Plan Visit Data *Final* Discharge Date/Time: 09/23/19 00:41 Chief Complaint: Food Bolus Stated Complaint: FOOD BOLUS ED Provider: Adryan Holbrook Discharge Problem: Acute esophageal obstruction, Precordial chest pain Patient Disposition: Admitted As Inpatient Condition: Fair Discharge Instructions Interventions: ED Discharge Assessment Last Done: 09/23/19 00:41
[2019-09-22 23:08] LABS: Hematocrit (blood only) 42.7 % (37-47); Hemoglobin 14.6 g/dL (12.0-16.0); Mean Corpuscular Hemoglobin 31.9 pg (25-34); Mean Corpuscular Hgb Conc 34.2 g/dL (32-36); Mean Corpuscular Volume 93.2 fL (80-100); Mean Platelet Volume 11.4 fL (7.4-10.4); Platelet Count 350 K/uL (130-400); RDW Coefficient of Variation 13.6 % (11.5-14.5); RDW Standard Deviation 46.1 fL (36.4-46.3); Red Blood Count 4.58 M/uL (4.2-5.4)
[2019-09-22 23:25] LABS: BUN Creatinine Ratio 23.3 (10-20); Blood Urea Nitrogen 23 mg/dl (7-18); Calcium 9.3 mg/dl (8.5-10.1); Carbon Dioxide 28 mmol/L (21-32); Chloride 106 mmol/L (98-107); Est GFR (African American) 71.8; Est GFR (Non-African American) 61.9; Glucose 166 mg/dl (70-99); Potassium 3.6 mmol/L (3.5-5.1); Sodium 139 mmol/L (136-145)
--- NOTE | 2019-09-23 00:05 | Gastrointestinal Consultation ---
Date of Consultation September 23, 2019 Assessment & Plan (1) Acute esophageal obstruction: Proceed with EGD emergently risks/benefits and procedure discussed with patient, who agrees to proceed NPO supportive care History of Present Illness History of Present Illness 59 yo female here for food bolus/esophageal obstruction. She was eating cubed beef earlier tonight and felt it get stuck. She has not been able to swallow her saliva, has been spitting it up and is uncomfortable. This has never happened before. Labs reviewed. Allergies Allergy/AdvReac Type Severity Reaction Status Date / Time acetaminophen Allergy Unknown hives Verified 09/22/19 23:18 oxycodone Allergy Unknown hives Verified 09/22/19 23:18 Home Medications Home Medications Medication Instructions Recorded Confirmed Type amlodipine 10 mg PO QPM 05/21/18 09/22/19 History diclofenac sodium 75 mg PO PM 05/21/18 09/22/19 History lamotrigine 25 mg PO PM 05/21/18 09/22/19 History lisinopril 40 mg PO QPM 05/21/18 09/22/19 History metformin 1,000 mg PO PM 05/21/18 09/22/19 History metoprolol succinate 50 mg PO QPM 05/21/18 09/22/19 History venlafaxine 75 mg PO QPM 05/21/18 09/22/19 History venlafaxine 150 mg PO QPM 05/21/18 09/22/19 History albuterol sulfate [Proventil HFA] 2 inha INH Q6H PRN #6.7 gm 07/12/18 09/22/19 Rx rosuvastatin 5 mg PO DAILY 09/22/19 09/22/19 History Patient History Medical History Depression (Chronic) Diabetes mellitus (Chronic) Dyslipidemia (Chronic) Epigastric abdominal pain (Acute) HTN (hypertension) (Chronic) Surgical History H/O hemorrhoidectomy (Chronic) Family History Other Diabetes Heart disease Hypertension Social History Preferred Language: Albanian Feels Safe at Home: Yes Smoking Status: Current every day smoker Do You Dip or Chew Tobacco: No ; Hx Alcohol Use: No Hx Substance Use: No Review of Systems Constitutional: no fever, no chills and no weight loss Eyes: as per Subjective / HPI Ear, Nose, Mouth, Throat: as per Subjective / HPI Respiratory: no dyspnea and no dyspnea on exertion Cardiovascular: no chest pain and no palpitations Gastrointestinal: as per Subjective / HPI Musculoskeletal: no joint pain and no swelling Integumentary: no rash and no lesions Neurologic: no numbness and no paresthesia Psychiatric: no depression and no anxiety Endocrine: no fatigue Hematologic / Lymphatic: no easy bleeding and no easy bruising Physical Exam Constitutional: WD/WN, vitals as above Eyes: EOM intact bilaterally Neck: normal visual inspection Respiratory: normal respiratory effort, lungs clear to auscultation Cardiovascular: RRR, no murmur, no edema Gastrointestinal (Abdomen): Inspection/Auscultation: abdomen normal to inspection; abdomen not distended Percussion/Palpation: abdomen soft; abdomen nontender and no hepatosplenomegaly Musculoskeletal: Extremities: no cyanosis Gait: normal gait Skin: no rashes, warm and dry Neurologic: moves all extremities Psychiatric: A+Ox3, euthymic affect Results & Data ([facility]) Vital Signs (Past 12 Hours) Vital Signs Temp Pulse Resp BP Pulse Ox 09/22/19 23:31 76 26 H 129/60 92 09/22/19 23:30 68 25 H 89 L 09/22/19 23:20 86 27 H 125/82 87 L 09/22/19 23:00 76 13 168/95 H 94 09/22/19 22:45 85 31 H 93 09/22/19 22:42 85 24 139/108 H 95 09/22/19 22:33 36.9 C 78 20 158/98 H 96 PG Care Time/CCT Total # of Minutes Spent Total Time Spent with Patient: Total time spent is greater than 50% in coordination of care (as documented) at patient's floor/unit and/or counseling patient: Coding Level of Care Code 90797 Office/OBS Consult Lvl 4 Diagnoses Acute esophageal obstruction K22.2
[2019-09-23] MEDS ORDERED: fentaNYL citrate 100 MCG/2 ML VIAL ONE (00:17)
[2019-09-23] MEDS ORDERED: SUCCINYLCHOLINE CHLORIDE 20 MG/ML 10 ML VIAL IV ONE (00:17)
[2019-09-23] MEDS ORDERED: ONDANSETRON INJ 2 MG/ML 2 ML VIAL ONE (00:17)
[2019-09-23] MEDS ORDERED: PROPOFOL IV EMULSION 10 MG/ML 20 ML VIAL IV ONE (00:17)
[2019-09-23] MEDS ORDERED: ATROPINE SULFATE 0.1 MG/ML 10ML SYR IV PRN (00:24)
[2019-09-23] MEDS ORDERED: ePHEDrine sulfate 50 MG/ML AMP IV PRN (00:24)
[2019-09-23] MEDS ORDERED: ONDANSETRON INJ 2 MG/ML 2 ML VIAL IV PRN ×2 (00:24→06:31)
[2019-09-23] MEDS ORDERED: fentaNYL citrate 100 MCG/2 ML VIAL IV PRN (00:24)
--- NOTE | 2019-09-23 00:27 | Anesthesiology Consultation ---
Date of Service September 23, 2019 Assessment & Plan (1) Encounter for pre-operative examination: Chart Review Chart Review: Acceptable Risk for Surgery and Patient NOT seen in Pre Admission Testing Consults Requested none History Surgery Operation Date: 09/23/19 01:00 Proposed Procedures p EGD Foreign Body Removal - Ender Huntley MD Height/Weight Height: 5 ft 3 in Weight: 68.492 kg Allergies Allergy/AdvReac Type Severity Reaction Status Date / Time acetaminophen Allergy Unknown hives Verified 09/22/19 23:18 oxycodone Allergy Unknown hives Verified 09/22/19 23:18 Medications Home Medications Medication Instructions Recorded Confirmed Last Taken amlodipine 10 mg PO QPM 05/21/18 09/22/19 12/01/18 diclofenac sodium 75 mg PO PM 05/21/18 09/22/19 12/01/18 lamotrigine 25 mg PO PM 05/21/18 09/22/19 12/01/18 lisinopril 40 mg PO QPM 05/21/18 09/22/19 12/01/18 metformin 1,000 mg PO PM 05/21/18 09/22/19 12/01/18 metoprolol succinate 50 mg PO QPM 05/21/18 09/22/19 12/01/18 venlafaxine 75 mg PO QPM 05/21/18 09/22/19 12/01/18 venlafaxine 150 mg PO QPM 05/21/18 09/22/19 12/01/18 albuterol sulfate [Proventil HFA] 2 inha INH Q6H PRN #6.7 gm 07/12/18 09/22/19 Unknown rosuvastatin 5 mg PO DAILY 09/22/19 09/22/19 Unknown Past Medical History Medical History Depression (Chronic) Diabetes mellitus (Chronic) Dyslipidemia (Chronic) Epigastric abdominal pain (Acute) HTN (hypertension) (Chronic) Exercise / Class Metabolic Activity II 4-5 Yardwork/Stairs/Walk up hill Past Family History Family History Other Diabetes Heart disease Hypertension Past Surgical History Surgical History H/O hemorrhoidectomy (Chronic) Past Anesthesia History No Hx of Anesthesia Complications and No Family Hx of Anesthesia Complications History of PONV No Hx of PONV and No Hx of Motion Sickness Social History Smoking Status: Current every day smoker Do You Dip or Chew Tobacco: No Hx Alcohol Use: No Hx Substance Use: No Physical Exam Vital Signs Last Vital Signs Temp 36.9 C 09/22/19 22:33 Pulse 102 H 09/23/19 00:10 Resp 23 09/23/19 00:10 BP 145/90 H 09/23/19 00:10 Pulse Ox 96 09/23/19 00:10 Testing Laboratory Results 09/22/19 22:40 09/22/19 22:40 Electrocardiogram Date: 09/22/19 Findings: + NSR @ (78) Poor data quality, interpretation may be adversely affected Sinus rhythm with marked sinus arrhythmia with frequent Premature ventricular complexes Otherwise normal ECG When compared with ECG of 12-JUL-2018 14:39, No significant change was found
--- NOTE | 2019-09-23 01:27 | Procedure Note ---
Procedure Note Date of Service September 23, 2019 gi brief procedure note: EGD findings: large hiatal hernia present with moderate sized bolus of solid food in the hernia sac, this was grabbed with a Thornton Net and moved into the stomach and left in the stomach. Obstruction cleared. Gastritis noted, biopsied. Recs: small meals, chew food thoroughly discharge to home when recovered f/u biopsy results outpatient surgery referral for correction of large hiatal hernia Ender Huntley MD Gastroenterology Coding
--- NOTE | 2019-09-23 01:35 | GI REPORT ---
Patient Name: Shira Parks Procedure Date: 09/23/2019 12:35 AM Date of : 1960 Admit Type: Emergency Department Age: 59 Gender: Female Attending MD: Ender Huntley MD Procedure: Upper GI endoscopy Providers: Ender Huntley MD Referring MD: Referred Self Indications: Dysphagia Medicines: Monitored Anesthesia Care Complications: No immediate complications. Estimated blood loss: None. Estimated Blood Loss: Estimated blood loss: none. Procedure: Pre-Anesthesia Assessment: - Prior Anticoagulants: The patient has taken no previous anticoagulant or antiplatelet agents. - ASA Grade Assessment: III - A patient with severe systemic disease. After obtaining informed consent, the endoscope was passed under direct vision. Throughout the procedure, the patient's blood pressure, pulse, and oxygen saturations were monitored continuously. The Endoscope was introduced through the mouth, and advanced to the second part of duodenum. The upper GI endoscopy was accomplished without difficulty. The patient tolerated the procedure well. Findings: moderate solid Food was found in the lower third of the esophagus in the hiatal hernia sac. This was grasped with a Thornton net and placed in the stomach at the antrum. Estimated blood loss: none. Obstruction cleared. A large hiatal hernia was present. The duodenal bulb and second portion of the duodenum were normal. Diffuse moderate inflammation characterized by adherent blood and erythema was found in the gastric antrum. Biopsies were taken with a cold forceps for Helicobacter pylori testing. Estimated blood loss: none. A single 4 mm sessile polyp with no stigmata of recent bleeding was found in the gastric fundus. The polyp was removed with a cold biopsy forceps. Resection and retrieval were complete. Estimated blood loss: none. Impression: - Food in the lower third of the esophagus. - Large hiatal hernia. - Normal duodenal bulb and second portion of the duodenum. - Gastritis. Biopsied. - A single gastric polyp. Resected and retrieved. Recommendation: - Discharge patient to home (with escort). - Soft diet for 2 days. chew food thoroughly and eat small meals. - Await pathology results. outpatient surgery referral for correction of large hiatal hernia Ender Huntley MD 09/23/2019 1:34:22 AM This report has been signed electronically. Note Initiated On: 09/23/2019 12:35 AM Number of Addenda: 0 I attest to the content of the Intraoperative Record and orders documented therein, exceptions below {[id number]}
[2019-09-23] MEDS ORDERED: ALBUTEROL HFA 8 GM INHALER INH PRN (06:31)
--- NOTE | 2019-09-23 06:36 | XRay Report ---
XR chest 1V portable CLINICAL HISTORY: Shortness of breath. COMPARISON STUDY: Chest radiograph July 12, 2018. FINDINGS: Lung volumes are normal. Linear left lower lung opacity reflects atelectasis. There is no p neumothorax or pleural effusion. Cardiac size is normal. Mediastinal contours are normal. There is no evidence for pulmonary edema. Patient is mildly rotated. IMPRESSION: No acute cardiopulmonary findings. ACT 112: Negative or not required by law. Electronically signed by: Beck Malloy M.D. 09/23/2019 6:34 AM
[2019-09-23] MEDS ORDERED: GLUCOSE 40% GEL 15 GM TUBE PO PRN (06:45)
[2019-09-23] MEDS ORDERED: CARBOHYDRATES FOR HYPOGLYCEMIA PO PRN (06:45)
[2019-09-23] MEDS ORDERED: GLUCAGON FOR INJ 1 MG VIAL SQ PRN (06:45)
[2019-09-23] MEDS ORDERED: DEXTROSE 50% 50 ML SYRINGE IV PRN (06:45)
[2019-09-23] MEDS ORDERED: GLUCOSE 10 TABS/TUBE PO PRN (06:45)
--- NOTE | 2019-09-23 07:04 | History and Physical Report ---
DATE OF ADMISSION: 09/23/2019 CHIEF COMPLAINT: Food bolus. HISTORY OF PRESENT ILLNESS: This is a 59-year-old female with past medical history significant for diabetes, hyperlipidemia, hypertension, rectal prolapse, history of alcoholism, major depression, bipolar, tobacco use disorder, hepatitis C virus infection cured after antiviral drug therapy, who lives alone, who was brought in because of food bolus. The patient, seemed to be after eating her dinner cubed beef, felt something caught in her esophagus. There is no history of difficulty breathing, and she came here and thought to be having acute food bolus with acute esophageal obstruction status post EGD. She was found to have a large hiatal hernia with moderate-sized solid food bolus that was removed. Obstruction was cleared. Gastritis noted on EGD and biopsied. The patient was advised for small meals and soft diet for 2 days and follow with biopsy results and to be discharged, but the patient was still requiring oxygen even after a few hours from the procedure, so we were called admit to the hospital and observe. Currently resting comfortably and hemodynamically stable. The pain has improved. She has mild sore throat. Denies any headache, no blurred visions, no earache. Has some smoker's cough. No chest pain, no abdominal pain. Normal bowel movements. No fevers. ALLERGIES: ACETAMINOPHEN AND OXYCODONE. PAST MEDICAL HISTORY: As mentioned above. PAST SURGICAL HISTORY: Status post EGD, colonoscopy, hemorrhoidectomy, proctopexy. MEDICATIONS: The patient is on lisinopril 20 mg p.o. daily, Toprol-XL 50 mg p.o. daily, Crestor 5 mg p.o. daily, venlafaxine XR 150 mg p.o. daily, venlafaxine XR 75 mg p.o. daily, amlodipine 10 mg p.o. daily, metformin ER 1000 mg p.o. daily, Lamictal 50 mg p.o. daily. FAMILY HISTORY: No family history in file. SOCIAL HISTORY: Single, smokes half pack a day since the last 37 years. Alcohol, few drinks a week. Smokes marijuana. REVIEW OF SYSTEMS: As per HPI. Rest of review of systems negative. PHYSICAL EXAMINATION: GENERAL: The patient is of moderate build, not in acute distress. VITAL SIGNS: Temperature 36.7, pulse 66, respiratory rate 19, blood pressure 135/67, oxygen 92% on OxyMask. HEENT: Extraocular muscles intact. NECK: Supple, no neck masses seen. CARDIOVASCULAR: S1, S2 heard, regular rate and rhythm, no murmur, no gallop. RESPIRATORY SYSTEM: Normal AP diameter. No accessory muscle use. Mild occasional wheezing, no crackles. ABDOMEN: Soft, bowel sounds present, nontender. No distention. CENTRAL NERVOUS SYSTEM: Cranial nerves II-XII grossly intact, nonfocal. EXTREMITIES: No edema, no erythema. LABORATORY DATA: WBC 13, hemoglobin 14.6, hematocrit 42.7, platelets 350. Sodium 139, potassium 3.6, chloride 106, bicarbonate 28, BUN 23, creatinine 0.9, serum glucose 166, calcium 9.3. IMAGING DATA: Chest x-ray, no acute findings. EKG: Sinus rhythm with marked sinus arrhythmia with PVCs at a rate of 78, no significant change was found. ASSESSMENT AND PLAN: A 59-year-old female who presents with food bolus. 1. Food bolus. Status post EGD and found to have a large hiatal hernia with moderate amount of solid food bolus which was removed and found to have gastritis, which was biopsied. A single gastric polyp was resected. Plan was soft diet for 2 days, to chew food thoroughly, and eat small meals. Await pathology results and then follow up outpatient for large hiatal hernia. 2. Post-procedure hypoxia, history of tobacco abuse. To observe in the hospital until she is weaned off the oxygen and to discharge and follow as outpatient. albuterol p.r.n. 3. Hypertension. Continue her home medication of amlodipine, lisinopril, metoprolol. Follow the blood pressure. 4. Diabetes. Hold metformin. Sliding scale. Follow the blood sugars. 5. Hyperlipidemia. Continue statin. 6. Depression, bipolar disorder. Continue Lamictal and venlafaxine. 7. Deep venous thrombosis prophylaxis, sequential compression devices. DISPOSITION: Observe in the medical floor. Expect to discharge home and follow with the family doctor. Level 1 full code. MTDD
--- NOTE | 2019-09-23 07:20 | Anesthesiology Progress Note ---
Date of Service September 23, 2019 Anesthesia Post Procedure Vital Signs Vital Signs: Temp Pulse Pulse Resp BP BP BP 09/23/19 06:30 36.8 C 83 16 142/83 H 09/23/19 06:01 36.7 C 66 19 135/67 09/23/19 05:34 36.7 C 91 H 19 131/72 09/23/19 05:28 80 20 132/84 09/23/19 05:25 86 21 114/70 09/23/19 05:15 79 157/103 H 09/23/19 05:00 74 23 114/70 09/23/19 04:34 76 19 114/70 09/23/19 04:25 83 18 120/79 09/23/19 04:14 74 23 114/70 09/23/19 04:05 77 16 134/75 09/23/19 03:54 79 23 147/89 H 09/23/19 03:44 77 24 138/76 09/23/19 03:34 78 17 132/86 09/23/19 03:24 77 24 125/85 09/23/19 03:15 81 138/93 09/23/19 03:04 74 133/96 09/23/19 02:54 78 22 124/80 09/23/19 02:44 81 124/80 09/23/19 02:34 99 H 121/90 09/23/19 02:24 81 20 155/95 H 09/23/19 02:14 36.7 C 102 H 19 155/95 H 09/23/19 02:04 88 20 127/79 09/23/19 02:00 36.7 C 102 H 19 155/55 H 09/23/19 01:53 36.7 C 102 H 19 155/95 H 09/23/19 00:10 102 H 23 145/90 H 09/23/19 00:01 78 24 09/23/19 00:00 82 26 H 145/90 H 09/22/19 23:50 83 28 H 09/22/19 23:40 74 19 09/22/19 23:32 75 22 09/22/19 23:31 76 26 H 129/60 09/22/19 23:30 68 25 H 09/22/19 23:20 86 27 H 125/82 09/22/19 23:00 76 13 168/95 H 09/22/19 22:45 85 31 H 09/22/19 22:42 85 24 139/108 H 09/22/19 22:33 36.9 C 78 20 158/98 H Pulse Ox 09/23/19 06:30 93 09/23/19 06:01 92 09/23/19 05:34 91 09/23/19 05:28 91 09/23/19 05:25 91 09/23/19 05:15 92 09/23/19 05:00 91 09/23/19 04:34 90 09/23/19 04:25 85 L 09/23/19 04:14 91 09/23/19 04:05 90 09/23/19 03:54 92 09/23/19 03:44 91 09/23/19 03:34 90 09/23/19 03:24 89 L 09/23/19 03:15 09/23/19 03:04 91 09/23/19 02:54 09/23/19 02:44 87 L 09/23/19 02:34 91 09/23/19 02:24 09/23/19 02:14 09/23/19 02:04 92 09/23/19 02:00 09/23/19 01:53 09/23/19 00:10 96 09/23/19 00:01 93 09/23/19 00:00 92 09/22/19 23:50 93 09/22/19 23:40 95 09/22/19 23:32 91 09/22/19 23:31 92 09/22/19 23:30 89 L 09/22/19 23:20 87 L 09/22/19 23:00 94 09/22/19 22:45 93 09/22/19 22:42 95 09/22/19 22:33 96 Pain Intensity Bilateral Head: Pain Intensity: 5 Transfer of Care Handoff Completed per policy Notes Mental Status: alert / awake / arousable and participated in evaluation Patient Amnestic to Procedure: Yes Nausea / Vomiting: adequately controlled Pain: adequately controlled Airway Patency, RR, SpO2: see Notes below BP & HR: stable & adequate Hydration State: stable & adequate Anesthetic Complications: no major complications apparent and Pt Satisfied with anesthetic care Notes: Patient awake and conversant but was unable to fully wean off of oxygen post-op. Plan for overnight observation and ambulate in the morning and she should be able to go home today pending any setbacks.
[2019-09-23] MEDS ORDERED: ACETAMINOPHEN 325 MG TAB PO STA (07:44)
--- NOTE | 2019-09-23 08:34 | Communication Note ---
Date of Service: September 23, 2019 GI brief note: patient seen this morning, doing well and tolerating soft diet. mild sore throat but otherwise no significant issues. Currently on 2L O2 saturating 95%. Plan: 1.wean off O2 to room air and discharge home as long as saturations allow 2.will need outpatient thoracic surgery evaluation for correction of hiatal hernia 3.f/u path results from EGD Ender Huntley MD Gastroenterology
[2019-09-23] MEDS: INSULIN ASPART 100 UNITS/ML 3 ML PEN SC SCH ×2 (08:37→12:37)
[2019-09-23] MEDS ORDERED: ROSUVASTATIN CALCIUM 5 MG TAB PO SCH (09:00)
--- NOTE | 2019-09-23 11:48 | Discharge Summary ---
Date of Service September 23, 2019 Admission HPI Per Admitting Provider 59-year-old female with past medical history significant for diabetes, hyperlipidemia, hypertension, rectal prolapse, history of alcoholism, major depression, bipolar, tobacco use disorder, hepatitis C virus infection cured after antiviral drug therapy, who lives alone, who was brought in because of food bolus. The patient, seemed to be after eating her dinner cubed beef, felt something caught in her esophagus. There is no history of difficulty breathing, and she came here and thought to be having acute food bolus with acute esophageal obstruction status post EGD. She was found to have a large hiatal hernia with moderate-sized solid food bolus that was removed. Obstruction was cleared. Gastritis noted on EGD and biopsied. The patient was advised for small meals and soft diet for 2 days and follow with biopsy results and to be discharged, but the patient was still requiring oxygen even after a few hours from the procedure, so we were called admit to the hospital and observe. Currently resting comfortably and hemodynamically stable. The pain has improved. She has mild sore throat. Denies any headache, no blurred visions, no earache. Has some smoker's cough. No chest pain, no abdominal pain. Normal bowel movements. No fevers. Admission Exam Per Admitting Provider GENERAL: The patient is of moderate build, not in acute distress. VITAL SIGNS: Temperature 36.7, pulse 66, respiratory rate 19, blood pressure 135/67, oxygen 92% on OxyMask. HEENT: Extraocular muscles intact. NECK: Supple, no neck masses seen. CARDIOVASCULAR: S1, S2 heard, regular rate and rhythm, no murmur, no gallop. RESPIRATORY SYSTEM: Normal AP diameter. No accessory muscle use. Mild occasional wheezing, no crackles. ABDOMEN: Soft, bowel sounds present, nontender. No distention. CENTRAL NERVOUS SYSTEM: Cranial nerves II-XII grossly intact, nonfocal. EXTREMITIES: No edema, no erythema. Principal Diagnosis Esophageal FB Post-procedure hypoxia History of tobacco abuse. Hypertension.. Diabetes Hyperlipidemia Depression Bipolar disorder Discharge Exam ROS-No Headache, No Visual Changes, No Nausea, No Vomiting, No Fever, No Chills, No Neck Pain or Stiffness, No Chest Pain, No Palpitations, No SOB, No [place], No Cough, No Sputum, No Wheezing, No Abdominal Pain, No Diarrhea, No Hematemesis, No Hemoptysis, No Unexpected Weight Loss, No Flank pain, No Melena, No Hematochezia, No Frequency, No Urgency, No Burning, No Hematuria, No Rashes, No Diaphoresis. Appetite is Normal, +Sore throat, Physical Exam Gen-AAO x 3, NAD, Afebrile, Obese Head-NCAT, EOMI, PERRLA, Anicteric Sclera, No Posterior Pharyngeal Erythema Neck-Supple, No JVD, No Thyromegaly, No Masses, No LAD, No Bruits Lungs-Clear to Auscultation Bilaterally, No Rales, No Rhonchi, No Wheezing, No Crepitus Chest-No S4, +S1, +S2, No S3, No Murmurs, No Rubs, No Gallops, No Ectopy Abdomen-Soft, Bowel Sounds Present, Non Tender, Non Distended, No Hepatomegaly, No Splenomegaly, No Palpable Masses, No Rebound, No Rigidity, No Guarding Musculoskeletal-Full Range of Motion Bilaterally, No CVAT Extremities-No Cyanosis, No Clubbing, No Edema Nuero-Cranial Nerves II-XII grossly intact, Motor WNL, DTRs WNL, Strength WNL, Non Focal Psych-Normal Mood Discharge Data Allergies Allergy/AdvReac Type Severity Reaction Status Date / Time acetaminophen Allergy Unknown hives Verified 09/22/19 23:18 oxycodone Allergy Unknown hives Verified 09/22/19 23:18 Procedures Performed Operation Date: 09/23/19 01:00 Actual Procedures p Esophagogastroduodenoscopy - Ender Huntley MD 09/23/19 09/23/19 09/22/19 Range/Units 11:41 08:12 22:40 WBC (4.8-10.8) K/uL RBC (4.2-5.4) M/uL Hgb (12.0-16.0) g/dL Hct (37-47) % MCV (80-100) fL MCH (25-34) pg MCHC (32-36) g/dL RDW Std Deviation (36.4-46.3) fL RDW Coeff of Mike (11.5-14.5) % Plt Count (130-400) K/uL MPV (7.4-10.4) fL Sodium 139 (136-145) mmol/L Potassium 3.6 (3.5-5.1) mmol/L Chloride 106 (98-107) mmol/L Carbon Dioxide 28 (21-32) mmol/L Anion Gap 5.0 (3-11) BUN 23 H (7-18) mg/dl Creatinine 0.99 (0.6-1.2) mg/dl Est Cr Clr Drug Dosing Not Reportable Est GFR ( Amer) 71.8 Est GFR (Non-Af Amer) 61.9 BUN/Creatinine Ratio 23.3 H (10-20) Glucose 166 H (70-99) mg/dl POC Glucose 101 H 119 H (70-99) mg/dl Calcium 9.3 (8.5-10.1) mg/dl 09/22/19 Range/Units 22:40 WBC 13.10 H (4.8-10.8) K/uL RBC 4.58 (4.2-5.4) M/uL Hgb 14.6 (12.0-16.0) g/dL Hct 42.7 (37-47) % MCV 93.2 (80-100) fL MCH 31.9 (25-34) pg MCHC 34.2 (32-36) g/dL RDW Std Deviation 46.1 (36.4-46.3) fL RDW Coeff of Mike 13.6 (11.5-14.5) % Plt Count 350 (130-400) K/uL MPV 11.4 H (7.4-10.4) fL Sodium (136-145) mmol/L Potassium (3.5-5.1) mmol/L Chloride (98-107) mmol/L Carbon Dioxide (21-32) mmol/L Anion Gap (3-11) BUN (7-18) mg/dl Creatinine (0.6-1.2) mg/dl Est Cr Clr Drug Dosing Est GFR ( Amer) Est GFR (Non-Af Amer) BUN/Creatinine Ratio (10-20) Glucose (70-99) mg/dl POC Glucose (70-99) mg/dl Calcium (8.5-10.1) mg/dl Hospital Course (1) Acute esophageal obstruction: 1. Food bolus. Status post EGD and found to have a large hiatal hernia with moderate amount of solid food bolus which was removed and found to have gastritis, which was biopsied. 2. Post-procedure hypoxia, history of tobacco abuse. To observe in the hospital until she is weaned off the oxygen and to discharge and follow as outpatient. albuterol p.r.n. 3. Hypertension. Continue her home medication of amlodipine, lisinopril, metoprolol. Follow the blood pressure. 4. Diabetes. Hold metformin. Sliding scale. Follow the blood sugars. 5. Hyperlipidemia. Continue statin. 6. Depression, bipolar disorder. Continue Lamictal and venlafaxine. DC home today Total Time Total Time Spent Total Time Spent (In Minutes): 45 mins Total Time Includes: Examination of the Patient, Discharge Planning, Medication Reconciliation and Communication With Other Providers Discharge Plan Discharge Items Patient Disposition: Home - Self-Care Reason For Visit: FOOD BOLUS Discharge Diagnosis: esophageal food bolus, hiatal hernia, gastritis Condition on Discharge: Fair Activity: Per Instructions section Non-emergency contact: Primary Care Provider and [employer] Paver Call non-emergency contact if: you have any medication questions and your temperature is above 101 Follow-up/Referrals: Basil Montenegro DO [Primary Care Provider] - 09/29/19 11:00 am (09/29/2019 11:00 AM Provider Mihaela Randolph PA-C Department [facility] ) Diet: Carb Consistent or DM2 and Heart Healthy Diet Comment: small meals, chew food thoroughly Addtl Attending Provider Instructions: --No exercising or heavy lifting for 24 hours --Do not drink alcohol for the rest of the day --Do not drive a car or operate machinery until the day after the procedure --Do not make any important life decisions or sign important papers in the next 24 hours Pending Studies at Discharge: No Stand-Alone Forms: My [facility] Medications and DC Order Prescriptions: Continued venlafaxine 75 mg Tablet 75 mg PO QPM RF: 0 metoprolol succinate 50 mg Tablet Extended Release 24 Hr 50 mg PO QPM RF: 0 lisinopril 20 mg Tablet 40 mg PO QPM RF: 0 venlafaxine 150 mg Capsule,Extended Release 24hr 150 mg PO QPM RF: 0 lamotrigine 25 mg Tablet 25 mg PO PM RF: 0 amlodipine 10 mg Tablet 10 mg PO QPM RF: 0 metformin 1,000 mg Tablet 1,000 mg PO PM RF: 0 diclofenac sodium 75 mg Tablet,Delayed Release (Dr/Ec) 75 mg PO PM RF: 0 albuterol sulfate [Proventil HFA] 90 mcg/actuation HFA aerosol inhaler 2 inha INH Q6H PRN (Reason: shortness of breath or wheezing) Qty: 6.7 RF: 0 rosuvastatin 5 mg Tablet 5 mg PO DAILY RF: 0 Discharge Orders: Discharge Order (Routine); Ordered 09/23/19 Ordered By: Dave Fong Admission Data Admit Date/Time: 09/23/19 05:56 Attending Provider: Dave Fong Admit Provider: Dinh Bernal Primary Care Provider: Basil Montenegro
[2019-09-23] MEDS ORDERED: AMLODIPINE BESYLATE 5 MG TAB PO SCH (21:00)
[2019-09-23] MEDS ORDERED: lisinopriL 40 MG TAB PO SCH (21:00)
[2019-09-23] MEDS ORDERED: VENLAFAXINE HCL XR 75 MG CAPXR PO SCH (21:00)
[2019-09-23] MEDS ORDERED: lamoTRIgine 25 MG TAB PO SCH (21:00)
[2019-09-23] MEDS ORDERED: METOPROLOL SUCC 50MG EXT REL TAB PO SCH (21:00)
[2019-09-23] MEDS ORDERED: VENLAFAXINE HCL XR 150 MG CAPXR PO SCH (21:00)
--- NOTE | 2019-09-23 22:25 | Electrocardiogram Report ---
Test Reason : Blood Pressure : / mmHG Vent. Rate : 078 BPM Atrial Rate : 078 BPM P-R Int : 126 ms QRS Dur : 084 ms QT Int : 412 ms P-R-T Axes : 090 081 069 degrees QTc Int : 469 ms Poor data quality, interpretation may be adversely affected Sinus rhythm with marked sinus arrhythmia with frequent Premature ventricular complexes Otherwise normal ECG When compared with ECG of 12-JUL-2018 14:39, No significant change was found Confirmed by Gama Castorena ([id number]) on 09/23/2019 10:25:29 PM Referred By: REFERRED SELF Confirmed By:Gama Castorena
== END 2019-09-23 14:17 | disposition home or self-care (01) ==
LOC: ED 22:32 → 2W 09-23 00:41 → OR 09-23 00:41 → SUATTDRO 09-23 05:56

== ENCOUNTER 2024-04-03 14:15 | Inpatient (IN) ==
--- NOTE | 2024-04-03 14:42 | Emergency Department Note ---
Impression & Plan Chest pain, Elevated troponin, Hyperglycemia ED Provider Note ED Provider Note NAME: ADDISON TERRELL AGE:64 SEX: Female : 1960 ARRIVES VIA: Private vehicle INFORMANT: Patient ED PROVIDER(s): Sydnie Sanchez DO CHIEF COMPLAINT: Chest pain, throat pain HPI: This is a 64-year-old female who presents emergency department due to concern for upper chest pain and accompanying pain in the throat. She states symptoms have been intermittent over the last 3 days. She states she cannot pinpoint any particular trigger or pattern for these episodes. She states she does have pain and difficulty swallowing. She states she does have a prior history of a hiatal hernia. No recent increased GERD/reflux. She denies fevers or chills, cough or URI symptoms. She states when the pain hits she does feel it is slightly harder to breathe. She denies any recent nausea or vomiting, no recent change in bowel movements. No recent change in medications. She denies any history of thyroid problems. PAST MEDICAL HISTORY:See Below PAST SURGICAL HISTORY:See Below FAMILY HISTORY:See Below SOCIAL HISTORY:See Below HOME MEDICATIONS:See Below ALLERGIES:See Below VITALS:See Below PHYSICAL EXAMINATION: GENERAL: alert, anxious and tearful appearing, well nourished, mild distress, non-toxic EYE EXAM: normal conjunctiva, PERRL and EOM's grossly intact OROPHARYNX: no exudate, no erythema, lips, buccal mucosa, and tongue normal and mucous membranes are moist NECK: supple, no nuchal rigidity, no adenopathy, non-tender LUNGS: Clear to auscultation. Normal chest wall mechanics, no w/r/r HEART: no murmurs, S1 normal and S2 normal ABDOMEN: abdomen soft, non-tender, normo-active bowel sounds, no masses, no rebound or guarding. BACK: Back is symmetrical on inspection and there is no deformity, no midline tenderness, no CVA tenderness. SKIN: no rashes, petechiae, orbruising UPPER EXTREMITIES: upper extremities are grossly normal. FROM, nml pulses b/l. LOWER EXTREMITIES: No pitting edema. FROM, nml pulses b/l. NEURO EXAM: Normal sensorium, cranial nerves II-XII grossly intact, normal speech, no facial droop,nogross weakness of arms, no gross weakness of legs. Gross sensation intact. No ataxia. Vital Signs: reviewed and remarkable Differential Diagnosis: acute coronary syndrome, pericarditis, pulmonary embolus, aortic dissection, pneumonia, pneumothorax, musculoskeletal pain, shingles, GERD, GI bleed, as well as others were considered MEDICAL DECISION MAKING: This is a 64-year-old female who presents emergency department due to concern for intermittent upper chest and throat pain over the last few days. She was afebrile and vital signs stable on arrival. Labs drawn and sent, IV established, EKG and chest ray performed at bedside interpreted by me and patient monitored on telemetry. No acute EKG changes noted, first troponin borderline elevated at 15. Patient given IV Tylenol, IV Pepcid, and IV Protonix. Patient did report some improvement. She was given Bentyl additionally. Due to concerning symptoms and history of tobacco abuse and alcohol use patient sent for CT soft tissue neck and CT chest. No obvious mass or abnormality noted. No ectopy or dysrhythmia noted. Repeat troponin drawn and sent as a precaution. Unfortunately second troponin markedly elevated compared to the first. Repeat EKG obtained did not show any acute changes. Patient updated on concerning results and need for further evaluation given CAD risk factors. Case discussed with the hospitalist team for additional evaluation and management. Patient started on heparin drip and given aspirin and Nitropaste. Consultation(s): 2034: Discussed with Dr. Bernal, [facility] hospitalist team, for additional evaluation and management ER Treatment Provided: See below Diagnostics Interpreted By Me: -ECG: Normal sinus at 90, normal axis, normal intervals, no acute ST/T wave changes EKG #2: Sinus bradycardia at 58, normal axis, normal intervals, no acute ST/T wave changes -Cardiac Monitoring: An order was placed for continuous cardiac monitoring. The monitor shows a rate of 90 with normal sinus rhythm. -Laboratory studies: As stated above and show below. -Imaging studies: X-ray Chest: A single view study of the chest was reviewed and was negative for cardiomegaly, focal infiltrate, effusion, pulmonary edema, or wide mediastinum. Triage Nursing Note Reviewed Prior/Outside Records Reviewed Critical Care: Critical care of 42 min performed to assess and manage high likelihood of life-threatening chest pain and elevated troponin involving labs and imaging performed with assessment to evaluate chest pain diagnosis with frequent reassessment. This time includes bedside time, treatment discussions with patient/family/consultants, documentation time and excludes procedure time. Past Med/Surg History Problem List Mixed hyperlipidemia Bipolar 1 disorder Hypertension, essential Hyperglycemia (Acute) Elevated troponin (Acute) NSTEMI (non-ST elevated myocardial infarction) Chest pain (Acute) Alcohol dependence in remission Bipolar 1 disorder Hiatal hernia Encounter for pre-operative examination Acute esophageal obstruction (Acute) Precordial chest pain (Acute) Diabetes mellitus (Chronic) HTN (hypertension) (Chronic) Dyslipidemia (Chronic) Depression (Chronic) H/O hemorrhoidectomy (Chronic) Epigastric abdominal pain (Acute) Fatigue (Acute) Nausea vomiting and diarrhea (Acute) Medical History Rectal prolapse Hepatitis C Family History Other Diabetes Heart disease Hypertension Social History Smoking Status: Current every day smoker Tobacco Type: Cigarettes packs per day: 0.5; Cigarettes Per Day: 10; Do You Dip or Chew Tobacco: No; Tobacco Cessation Education Requested by Patient: No Hx Alcohol Use: No (Patient reported.) Hx Substance Use: Yes Last Used Substance: Days (ago) Preferred Language: Sami Communication Ability: Effective [employer] Work[employer] Required: No Beliefs That Will Affect Care: None marital status: Single Current Living Situation: Alone Current Living Situation Comment: 4 year old grandson lives with patient current occupational status: employed current occupation: [employer] Other Information That Helps Us Care for You: No Feels Safe at Home: Yes Safety Concerns: Feels Safe At This Time Assistive Devices: None Allergies Allergies Allergy/AdvReac Type Severity Reaction Status Date / Time oxycodone Allergy Intermediate PERCOCET-HI Verified 06/30/22 17:19 VES Home Meds Home Medications Medication Instructions Recorded Confirmed amlodipine 10 mg tablet 10 mg PO QAM 05/21/18 04/03/24 diclofenac sodium 75 mg 75 mg PO UD 05/21/18 04/03/24 tablet,delayed release metoprolol succinate 50 mg 50 mg PO QAM 05/21/18 04/03/24 tablet,extended release 24 hr venlafaxine 150 mg 150 mg PO QAM 05/21/18 04/03/24 capsule,extended release 24 hr venlafaxine 75 mg tablet 75 mg PO QAM 05/21/18 04/03/24 empagliflozin 10 mg tablet 10 mg PO QAM 06/30/22 04/03/24 (Jardiance) lisinopril 40 mg tablet 20 mg PO QAM 06/30/22 04/03/24 metformin 500 mg tablet,extended 1,500 mg PO QAM 06/30/22 04/03/24 release 24 hr rosuvastatin 5 mg tablet 5 mg PO QAM 06/30/22 04/03/24 omeprazole 20 mg capsule,delayed 20 mg PO DAILY 04/03/24 04/03/24 release tramadol 50 mg tablet 50 - 100 mg PO UD PRN pain 04/03/24 04/03/24 Results & Data (ED) Vital Signs Vital Signs - 24 hr 04/03/24 14:18 04/03/24 14:30 04/03/24 14:30 Temperature 36.2 C L Temperature Source Temporal Artery Scan Pulse Rate 94 H Pulse Rate from SpO2 Sensor Pulse Rhythm Regular Pulse Strength Normal Respiratory Rate 18 Respiratory Effort / Characteristics Non-Labored Spontaneous SOB on Exertion Normal for Patient Respiratory Depth Normal Deep Respiratory Pattern Regular Blood Pressure 152/94 H Blood Pressure Mean 113 Blood Pressure Position Sitting Pulse Oximetry 94 Oxygen Delivery Method Room Air Room Air Room Air Sepsis Recent Fever Within 48 Hours No Sepsis New/Unexplained Change in Mental Status No Sepsis Action Taken by Nursing No Action Required 04/03/24 14:30 04/03/24 16:00 04/03/24 16:15 Temperature Temperature Source Pulse Rate 89 79 82 Pulse Rate from SpO2 Sensor 90 78 Pulse Rhythm Pulse Strength Respiratory Rate 20 17 Respiratory Effort / Characteristics Respiratory Depth Respiratory Pattern Blood Pressure 151/104 H 169/108 H Blood Pressure Mean 119 128 Blood Pressure Position Pulse Oximetry 95 95 Oxygen Delivery Method Sepsis Recent Fever Within 48 Hours Sepsis New/Unexplained Change in Mental Status Sepsis Action Taken by Nursing 04/03/24 17:12 04/03/24 17:30 04/03/24 18:00 Temperature Temperature Source Pulse Rate 76 68 Pulse Rate from SpO2 Sensor 72 69 Pulse Rhythm Pulse Strength Respiratory Rate 17 12 Respiratory Effort / Characteristics Respiratory Depth Respiratory Pattern Blood Pressure 174/110 H 175/120 H 175/109 H Blood Pressure Mean 131 138 140 Blood Pressure Position Pulse Oximetry 94 94 Oxygen Delivery Method Room Air Sepsis Recent Fever Within 48 Hours Sepsis New/Unexplained Change in Mental Status Sepsis Action Taken by Nursing 04/03/24 18:30 04/03/24 19:00 04/03/24 19:03 Temperature Temperature Source Pulse Rate 63 63 65 Pulse Rate from SpO2 Sensor 64 62 67 Pulse Rhythm Pulse Strength Respiratory Rate 23 14 17 Respiratory Effort / Characteristics Respiratory Depth Respiratory Pattern Blood Pressure 176/112 H 165/87 H Blood Pressure Mean 133 113 Blood Pressure Position Pulse Oximetry 92 93 96 Oxygen Delivery Method Sepsis Recent Fever Within 48 Hours Sepsis New/Unexplained Change in Mental Status Sepsis Action Taken by Nursing 04/03/24 20:18 04/03/24 21:15 04/03/24 21:33 Temperature Temperature Source Pulse Rate 66 60 60 Pulse Rate from SpO2 Sensor 89 Pulse Rhythm Pulse Strength Respiratory Rate 18 22 23 Respiratory Effort / Characteristics Respiratory Depth Respiratory Pattern Blood Pressure 140/88 149/98 H 145/92 H Blood Pressure Mean 120 115 109 Blood Pressure Position Pulse Oximetry 97 95 96 Oxygen Delivery Method Sepsis Recent Fever Within 48 Hours Sepsis New/Unexplained Change in Mental Status Sepsis Action Taken by Nursing 04/03/24 22:00 04/03/24 22:33 04/03/24 23:30 Temperature Temperature Source Pulse Rate 67 63 58 L Pulse Rate from SpO2 Sensor Pulse Rhythm Pulse Strength Respiratory Rate 20 21 22 Respiratory Effort / Characteristics Respiratory Depth Respiratory Pattern Blood Pressure 120/79 151/94 H 128/76 Blood Pressure Mean 93 113 93 Blood Pressure Position Pulse Oximetry 97 93 94 Oxygen Delivery Method Sepsis Recent Fever Within 48 Hours Sepsis New/Unexplained Change in Mental Status Sepsis Action Taken by Nursing Laboratory Data 04/04/24 05:24 04/04/24 05:24 Lab Results 04/03/24 04/03/24 Range/Units 14:33 19:17 WBC 12.98 H (4.8-10.8) K/ul RBC 4.83 (4.20-5.40) M/uL Hgb 14.6 (12.0-16.0) g/dl Hct 43.5 (37.0-47.0) % MCV 90.1 (80.0-100.0) fL MCH 30.2 (25.0-34.0) pg MCHC 33.6 (32.0-36.0) g/dL RDW Std Deviation 40.5 (36.4-46.3) fL RDW Coeff of Mike 12.3 (11.5-14.5) % Plt Count 302 (130-400) K/uL MPV 10.9 (9.4-12.4) fL Immature Gran % (Auto) 0.4 % Neut % (Auto) 72.9 % Lymph % (Auto) 18.5 % Rabun % (Auto) 6.8 % Eos % (Auto) 1.0 % Baso % (Auto) 0.4 % Neut # (Auto) 9.47 H (1.40-6.50) K/uL Lymph # (Auto) 2.40 (1.20-3.40) K/uL Rabun # (Auto) 0.88 H (0.11-0.59) K/uL Eos # (Auto) 0.13 (0.00-0.50) K/uL Baso # (Auto) 0.05 (0.00-0.20) K/uL Immature Gran # (Auto) 0.05 (0.01-0.20) K/uL PT 10.2 (9.0-12.0) Seconds INR 0.9 (0.9-1.1) D-Dimer 430 (0-500) ug/L FEU Sodium 137 (136-145) mmol/L Potassium 3.6 (3.5-5.1) mmol/L Chloride 104 (98-107) mmol/L Carbon Dioxide 22 (21-32) mmol/L Anion Gap 11 (3-11) BUN 17 (6-23) mg/dl Creatinine 0.52 L (0.6-1.2) mg/dl Est Cr Clr Drug Dosing 101.2 ml/min eGFR 103.04 BUN/Creatinine Ratio 32.7 H (10-20) Glucose 275 H (70-99(Fasting)) mg/dl Calcium 9.1 (8.6-10.3) mg/dl Magnesium 1.8 (1.7-2.4) mg/dl Total Bilirubin 0.3 (0.2-1.0) mg/dl AST 13 (13-39) U/L ALT 13 (7-52) U/L Alkaline Phosphatase 99 (34-104) U/L Troponin I High Sens 15.6 H 245.2 H* D (0-14) pg/ml Total Protein 6.9 (6.0-8.3) gm/dl Albumin 4.1 (3.4-5.0) gm/dl Globulin 2.8 (2.5-4.0) gm/dl Albumin/Globulin Ratio 1.5 (0.9-2) Lipase 168 H (11-82) U/L TSH 0.722 (0.300-4.500) uIu/ml Administered Medications Acetaminophen (Acetaminophen 325 Mg Tab) 650 mg PO Q4H PRN PRN Reason: Pain or Fever Stop: 05/04/24 00:32 Last Admin: 04/04/24 20:21 Dose: 650 mg Documented By: Admin: 04/04/24 02:02 Dose: 650 mg Documented By: ROMEO Amlodipine Besylate (Amlodipine Besylate 5 Mg Tab) 10 mg PO [facility] Stop: 05/04/24 08:59 Last Admin: 04/04/24 08:25 Dose: 10 mg Documented By: LIZAR Aspirin (Aspirin 81 Mg Ectab) 81 mg PO [facility] Stop: 05/04/24 08:59 Last Admin: 04/04/24 08:26 Dose: 81 mg Documented By: LIZAR Heparin Sodium/Dextrose (Heparin Sodium/Dextrose) 25,000 units in 500 mls @ 19 mls/hr IV .Q24H ON LICENSE OF [facility]; Protocol Stop: 05/03/24 20:59 Last Titration: 04/04/24 15:33 Dose: 950 units/hr, 19 mls/hr Documented By: CHANDRAKANT Co-signed By: ELENA Titration: 04/04/24 07:19 Dose: 900 units/hr, 18 mls/hr Documented By: CHANDRAKANT Co-signed By: ROMEO Admin: 04/03/24 21:49 Dose: 700 units/hr, 14 mls/hr Documented By: NATALIE Co-signed By: YONATHAN Insulin Aspart (Insulin Aspart Per Unit Charge) 0 units SC Q6 ON LICENSE OF [facility] Stop: 05/04/24 00:32 Last Admin: 04/04/24 17:21 Dose: Not Given Documented By: Admin: 04/04/24 12:15 Dose: Not Given Documented By: Admin: 04/04/24 07:26 Dose: Not Given Documented By: Admin: 04/04/24 01:25 Dose: Not Given Documented By: ROMEO Insulin Aspart (Insulin Aspart Per Unit Charge) 0 units SC ACHS ON LICENSE OF [facility] Stop: 05/04/24 11:29 Last Admin: 04/04/24 21:13 Dose: Not Given Documented By: Admin: 04/04/24 17:20 Dose: Not Given Documented By: Admin: 04/04/24 12:15 Dose: Not Given Documented By: LIZAR Lisinopril (Lisinopril 20 Mg Tab) 20 mg PO [facility] Stop: 05/04/24 08:59 Last Admin: 04/04/24 08:26 Dose: 20 mg Documented By: LIZAR Metoprolol Succinate (Metoprolol Succ 50mg Ext Rel Tab) 50 mg PO [facility] Stop: 05/04/24 08:59 Last Admin: 04/04/24 08:25 Dose: 50 mg Documented By: CHANDRAKANT Miscellaneous ( Empagliflozin 10 Mg Tab ~ Order Awaiting Action) 1 each N/A QS ON LICENSE OF [facility] Stop: 05/04/24 15:59 Last Admin: 04/04/24 15:59 Dose: Not Given Documented By: CHANDRAKANT Pantoprazole Sodium (Pantoprazole 40 Mg Tab) 40 mg PO DAILY ON LICENSE OF [facility] Stop: 05/04/24 08:59 Last Admin: 04/04/24 08:25 Dose: 40 mg Documented By: CHANDRAKANT Rosuvastatin Calcium (Rosuvastatin Calcium 5 Mg Tab) 5 mg PO [facility] Stop: 05/04/24 08:59 Last Admin: 04/04/24 08:25 Dose: 5 mg Documented By: CHANDRAKANT Venlafaxine HCl (Venlafaxine Hcl Xr 75 Mg Capxr) 75 mg PO [facility] Stop: 05/04/24 08:59 Last Admin: 04/04/24 08:26 Dose: 75 mg Documented By: LIZAR Venlafaxine HCl (Venlafaxine Hcl Xr 150 Mg Capxr) 150 mg PO [facility] Stop: 05/04/24 08:59 Last Admin: 04/04/24 08:26 Dose: 150 mg Documented By: CHANDRAKANT Discontinued Medications Aspirin (Aspirin 81 Mg Chew) 324 mg PO NOW STA Stop: 04/03/24 20:29 Last Admin: 04/03/24 20:34 Dose: 324 mg Documented By: YONATHAN Dicyclomine HCl (Dicyclomine Hcl 10 Mg Cap) 10 mg PO NOW ONE Stop: 04/03/24 18:59 Last Admin: 12/07/24 19:09 Dose: 10 mg Documented By: YONATHAN Heparin Sodium (Porcine) (Heparin Sod (Porcine) 1000 Unit/Ml) 4,000 units IV NOW ONE Stop: 04/03/24 21:16 Last Admin: 04/03/24 21:48 Dose: 4,000 units Documented By: NATALIE Co-signed By: YONATHAN Heparin Sodium (Porcine) (Heparin Sod (Porcine) 1000 Unit/Ml) 4,000 units IV NOW ONE Stop: 04/04/24 06:31 Last Admin: 04/04/24 08:23 Dose: 4,000 units Documented By: CHANDRAKANT Co-signed By: ELENA Famotidine (Pepcid 20mg Iv Push) 20 mg in 5 mls @ 2.5 mls/min IV NOW STA Stop: 04/03/24 14:39 Last Admin: 04/03/24 14:51 Dose: 2.5 mls/min Documented By: YONATHAN Pantoprazole Sodium (Protonix) 40 mg in 10 mls @ 5 mls/min IV NOW ONE Stop: 04/03/24 14:39 Last Admin: 04/03/24 14:51 Dose: 5 mls/min Documented By: YONATHAN Sodium Chloride (Nss) 500 mls @ 999 mls/hr IV .Q31M ONE Stop: 04/03/24 16:14 Last Infusion: 04/03/24 21:03 Dose: Infused Documented By: Admin: 04/03/24 16:29 Dose: 999 mls/hr Documented By: ANN MARIE Acetaminophen (Ofirmev) 1,000 mg in 100 mls @ 400 mls/hr IV NOW STA Stop: 04/03/24 19:12 Last Infusion: 04/03/24 20:34 Dose: Infused Documented By: Admin: 04/03/24 19:09 Dose: 400 mls/hr Documented By: YONATHAN Magnesium Sulfate/Dextrose (Magnesium Sulfate / D5w) 1 gm in 100 mls @ 50 mls/hr IV ONE ONE Stop: 04/04/24 01:30 Last Infusion: 04/04/24 01:53 Dose: Infused Documented By: Admin: 04/03/24 23:37 Dose: 50 mls/hr Documented By: DODIE Ioversol (Optiray 320 100ml) 94 ml IV ONCE ONE Stop: 04/03/24 16:19 Last Admin: 04/03/24 16:19 Dose: 94 ml Documented By: MADAN Metoprolol Tartrate (Metoprolol Tartrate 1 Mg/Ml Vial) 2.5 mg IV NOW STA Stop: 04/03/24 23:31 Last Admin: 04/03/24 23:37 Dose: 2.5 mg Documented By: DODIE Multi-Ingredient Mouthwash/Gargle (First - Mouthwash Blm 5 Ml Udp) 5 ml PO ONE ONE Stop: 04/03/24 17:16 Last Admin: 04/03/24 17:43 Dose: 5 ml Documented By: NATALIE Nitroglycerin (Nitroglycerin 2% Ointment 30gm Tube) 1 inch EXT NOW STA Stop: 04/03/24 20:29 Last Admin: 04/03/24 20:35 Dose: 1 inch Documented By: YONATHAN Potassium Chloride (Potassium Chloride Crtab 20 Meq Tabcr) 20 meq PO NOW STA Stop: 04/03/24 23:34 Last Admin: 04/04/24 01:24 Dose: 20 meq Documented By: [facility] Imaging Data Radiologist's Impression: Chest X-Ray 04/03/24 14:39 EXAM: Radiograph of the Chest 1 View INDICATION: Chest pain. TECHNIQUE: Frontal view of the chest. COMPARISON: 06/30/2022 and 09/22/2019 FINDINGS: Lungs and pleural spaces: Stable mild basilar scarring. No consolidation or pulmonary edema. No pleural effusion or pneumothorax. Heart: Shape and configuration within normal limits allowing for technique. Mediastinum: Stable small hiatal hernia. Bones/joints: Degenerative changes noted throughout the spine. No acute osseous abnormality seen. Soft tissues: No abnormality noted. No radiopaque foreign body noted. Upper abdomen: No abnormality noted. IMPRESSION: Stable chronic changes. No acute disease. ACT 112: Negative or not required by law. Electronically signed by Massiel Whitaker 04-03-2024 3:[address] 04/03/24 15:35 EXAM: CT Chest With Intravenous Contrast INDICATION: Dysphagia. Chest pain. TECHNIQUE: Axial computed tomography images of the chest with intravenous contrast. Sagittal and coronal reformatted images were created and reviewed. This CT exam was performed using one or more of the following dose reduction techniques: automated exposure control, adjustment of the mA and/or kV according to patient size, and/or use of iterative reconstruction technique. CONTRAST: 94ml of Optiray 320 was administered intravenously. COMPARISON: No relevant prior studies available. FINDINGS: Limitations: None. Lungs and pleural spaces: 4 mm noncalcified right lower lobe pulmonary nodule series 5 image 29. 2 mm subpleural left lower lobe pulmonary nodule image 41 series 5. Scattered areas of coarse scarring or atelectasis. No confluent consolidation. No pleural effusion or pneumothorax. No bronchiectasis or honeycombing. Heart: Mild cardiomegaly. Dense mitral annular calcification noted. Mediastinum: Moderate hiatal hernia contains the gastric fundus. Thyroid: No abnormality noted. Bones/joints: Degenerative changes noted throughout the spine. No acute osseous abnormality seen. Soft tissues: No significant abnormality noted. Vasculature: No abnormality noted. No thoracic aortic aneurysm. Lymph nodes: No enlarged lymph nodes. Gallbladder and bile ducts: Mild intrahepatic biliary dilatation noted. Visualized portion of the common bile duct is not dilated. No calcified stone noted in the portion of the gallbladder visualized. Kidneys and ureters: There is mild cortical scarring of the visualized portion of the left kidney. IMPRESSION: 1. No acute abnormality in the thorax. 2. Moderate hiatal hernia. 3. 4 mm right and 2 mm left lower lobe pulmonary nodules. Fleischner Society Guidelines suggest no follow-up is necessary for patients with a low or high risk of malignancy. 4. Mild cardiomegaly and mitral annular calcification. 5. Mild intrahepatic biliary dilatation. ACT 112: Negative or not required by law. Electronically signed by Massiel Whitaker 04-03-2024 4:[address] PM [address] Tissue [address] 04/03/24 15:35 EXAM: CT Neck With Intravenous Contrast INDICATION: Dysphagia. Chest pain. TECHNIQUE: Axial computed tomography images of the neck with intravenous contrast. Sagittal and coronal reformatted images were created and reviewed. This CT exam was performed using one or more of the following dose reduction techniques: automated exposure control, adjustment of the mA and/or kV according to patient size, and/or use of iterative reconstruction technique. CONTRAST: 94ml of Optiray 320 was administered intravenously. COMPARISON: No relevant prior studies available. FINDINGS: Oropharynx: No abnormality noted. No significant tonsillar enlargement. No peritonsillar abscess. Hypopharynx: No abnormality noted. Larynx: The vocal cords are closed and appear symmetric. There is no enhancing mass. Normal epiglottis. Trachea: No abnormality noted. Retropharyngeal space: No abnormality noted. Submandibular/parotid glands: No abnormality noted. Glands are normal in size. Thyroid: No abnormality noted. Bones/joints: Degenerative changes noted in the spine. There is grade 2 anterolisthesis C3 on C4. Grade 1 anterolisthesis C4 and C5. Grade 1 retrolisthesis of C5 on C6. Moderate diffuse facet arthrosis. There is multilevel mild canal stenosis. There is moderate to severe canal stenosis at C5-C6. Soft tissues: No significant abnormality noted. Vasculature: Heterogeneous luminal opacity in the left subclavian and brachiocephalic veins. Mild calcific plaque noted in the left carotid bulb with less than 50% stenosis. Calcification noted to a lesser extent in the right carotid bulb with no significant stenosis. Lymph nodes: Mild shotty left jugular compartment nodes. No enlarged nodes by CT criteria. Esophagus: Visualized esophagus is collapsed and grossly normal in appearance. Lung apices: No significant abnormality noted. IMPRESSION: 1. Severe degenerative changes of the cervical spine. No acute osseous abnormality. 2. Mildly reactive multicompartment cervical adenitis. ACT 112: Negative or not required by law. Electronically signed by Massiel Whitaker 04-03-2024 4:58 PM Discharge Plan Visit Data Chief Complaint: Chest Pain Stated Complaint: COLLAR BONE AND CHEST PAIN, SOB ED Provider: Sydnie Sanchez Discharge Problem: Chest pain, Elevated troponin, Hyperglycemia Patient Disposition: Admitted As Inpatient Discharge Instructions Interventions: ED Discharge Assessment Last Done: 04/03/24 23:53 Discharge Problem: Chest pain Qualifiers: Chest pain type: chest pain due to myocardial ischemia Ischemic chest pain type: unstable angina pectoris Qualified Code(s): I20.0 - Unstable angina
[2024-04-03] MEDS: PANTOprazole 40 MG/10 ML SYR IV ONE (14:51)
[2024-04-03] MEDS: FAMOTIDINE 20MG IV PUSH 20 MG/5 ML SYR IV STA (14:51)
[2024-04-03 15:04] LABS: Basophils # (auto) 0.05 K/uL (0.00-0.20); Basophils % (auto) 0.4 %; Eosinophils # (auto) 0.13 K/uL (0.00-0.50); Hematocrit (blood only) 43.5 % (37.0-47.0); Hemoglobin 14.6 g/dl (12.0-16.0); Immature Granulocytes # (auto) 0.05 K/uL (0.01-0.20); Immature Granulocytes % (auto) 0.4 %; Lymphocytes % (auto) 18.5 %; Mean Corpuscular Hemoglobin 30.2 pg (25.0-34.0); Mean Corpuscular Hgb Conc 33.6 g/dL (32.0-36.0); Mean Corpuscular Volume 90.1 fL (80.0-100.0); Mean Platelet Volume 10.9 fL (9.4-12.4); Monocytes # (auto) 0.88 K/uL (0.11-0.59); Monocytes % (auto) 6.8 %; Neutrophils # (auto) 9.47 K/uL (1.40-6.50); Neutrophils % (auto) 72.9 %; Platelet Count 302 K/uL (130-400); RDW Coefficient of Variation 12.3 % (11.5-14.5); RDW Standard Deviation 40.5 fL (36.4-46.3); Red Blood Count 4.83 M/uL (4.20-5.40); White Blood Count 12.98 K/ul (4.8-10.8)
[2024-04-03 15:27] LABS: Troponin I High Sensitivity 15.6 pg/ml (0-14)
[2024-04-03 15:29] LABS: D Dimer 430 ug/L FEU (0-500); INR 0.9 (0.9-1.1); Prothrombin Time 10.2 Seconds (9.0-12.0)
[2024-04-03 15:35] LABS: Albumin Level 4.1 gm/dl (3.4-5.0); Bilirubin,Total 0.3 mg/dl (0.2-1.0); Calcium 9.1 mg/dl (8.6-10.3); Magnesium 1.8 mg/dl (1.7-2.4); Potassium 3.6 mmol/L (3.5-5.1)
[2024-04-03 15:36] LABS: Thyroid Stimulating Hormone 0.722 uIu/ml (0.300-4.500)
[2024-04-03 15:41] LABS: Albumin Globulin Ratio 1.5 (0.9-2); BUN Creatinine Ratio 32.7 (10-20); Creatinine Clr Calc Pharmacy 101.2 ml/min; Globulin 2.8 gm/dl (2.5-4.0); Total Protein 6.9 gm/dl (6.0-8.3)
--- NOTE | 2024-04-03 15:58 | XRay Report ---
EXAM: Radiograph of the Chest 1 View INDICATION: Chest pain. TECHNIQUE: Frontal view of the chest. COMPARISON: 06/30/2022 and 09/22/2019 FINDINGS: Lungs and pleural spaces: Stable mild basilar scarring. No consolidation or pulmonary edema. No pleural effusion or pneumothorax. Heart: Shape and configuration within normal limits allowing for technique. Mediastinum: Stable small hiatal hernia. Bones/joints: Degenerative changes noted throughout the spine. No acute osseous abnormality seen. Soft tissues: No abnormality noted. No radiopaque foreign body noted. Upper abdomen: No abnormality noted. IMPRESSION: Stable chronic changes. No acute disease. ACT 112: Negative or not required by law. Electronically signed by Massiel Whitaker 04-03-2024 3:56 PM
[2024-04-03] MEDS: OPTIRAY 320 100ml IV ONE (16:19)
[2024-04-03] MEDS: SODIUM CHLORIDE 0.9% 500 ML IV ONE (16:29)
--- NOTE | 2024-04-03 16:50 | CT Scan Report ---
EXAM: CT Chest With Intravenous Contrast INDICATION: Dysphagia. Chest pain. TECHNIQUE: Axial computed tomography images of the chest with intravenous contrast. Sagittal and coronal reformatted images were created and reviewed. This CT exam was performed using one or more of the following dose reduction techniques: automated exposure control, adjustment of the mA and/or kV according to patient size, and/or use of iterative reconstruction technique. CONTRAST: 94ml of Optiray 320 was administered intravenously. COMPARISON: No relevant prior studies available. FINDINGS: Limitations: None. Lungs and pleural spaces: 4 mm noncalcified right lower lobe pulmonary nodule series 5 image 29. 2 mm subpleural left lower lobe pulmonary nodule image 41 series 5. Scattered areas of coarse scarring or atelectasis. No confluent consolidation. No pleural effusion or pneumothorax. No bronchiectasis or honeycombing. Heart: Mild cardiomegaly. Dense mitral annular calcification noted. Mediastinum: Moderate hiatal hernia contains the gastric fundus. Thyroid: No abnormality noted. Bones/joints: Degenerative changes noted throughout the spine. No acute osseous abnormality seen. Soft tissues: No significant abnormality noted. Vasculature: No abnormality noted. No thoracic aortic aneurysm. Lymph nodes: No enlarged lymph nodes. Gallbladder and bile ducts: Mild intrahepatic biliary dilatation noted. Visualized portion of the common bile duct is not dilated. No calcified stone noted in the portion of the gallbladder visualized. Kidneys and ureters: There is mild cortical scarring of the visualized portion of the left kidney. IMPRESSION: 1. No acute abnormality in the thorax. 2. Moderate hiatal hernia. 3. 4 mm right and 2 mm left lower lobe pulmonary nodules. Fleischner Society Guidelines suggest no follow-up is necessary for patients with a low or high risk of malignancy. 4. Mild cardiomegaly and mitral annular calcification. 5. Mild intrahepatic biliary dilatation. ACT 112: Negative or not required by law. Electronically signed by Massiel Whitaker 04-03-2024 4:50 PM
--- NOTE | 2024-04-03 16:59 | CT Scan Report ---
EXAM: CT Neck With Intravenous Contrast INDICATION: Dysphagia. Chest pain. TECHNIQUE: Axial computed tomography images of the neck with intravenous contrast. Sagittal and coronal reformatted images were created and reviewed. This CT exam was performed using one or more of the following dose reduction techniques: automated exposure control, adjustment of the mA and/or kV according to patient size, and/or use of iterative reconstruction technique. CONTRAST: 94ml of Optiray 320 was administered intravenously. COMPARISON: No relevant prior studies available. FINDINGS: Oropharynx: No abnormality noted. No significant tonsillar enlargement. No peritonsillar abscess. Hypopharynx: No abnormality noted. Larynx: The vocal cords are closed and appear symmetric. There is no enhancing mass. Normal epiglottis. Trachea: No abnormality noted. Retropharyngeal space: No abnormality noted. Submandibular/parotid glands: No abnormality noted. Glands are normal in size. Thyroid: No abnormality noted. Bones/joints: Degenerative changes noted in the spine. There is grade 2 anterolisthesis C3 on C4. Grade 1 anterolisthesis C4 and C5. Grade 1 retrolisthesis of C5 on C6. Moderate diffuse facet arthrosis. There is multilevel mild canal stenosis. There is moderate to severe canal stenosis at C5-C6. Soft tissues: No significant abnormality noted. Vasculature: Heterogeneous luminal opacity in the left subclavian and brachiocephalic veins. Mild calcific plaque noted in the left carotid bulb with less than 50% stenosis. Calcification noted to a lesser extent in the right carotid bulb with no significant stenosis. Lymph nodes: Mild shotty left jugular compartment nodes. No enlarged nodes by CT criteria. Esophagus: Visualized esophagus is collapsed and grossly normal in appearance. Lung apices: No significant abnormality noted. IMPRESSION: 1. Severe degenerative changes of the cervical spine. No acute osseous abnormality. 2. Mildly reactive multicompartment cervical adenitis. ACT 112: Negative or not required by law. Electronically signed by Massiel Whitaker 04-03-2024 4:58 PM
[2024-04-03] MEDS: FIRST - Mouthwash BLM 5 ML UDP PO ONE (17:43)
[2024-04-03] MEDS: ACETAMINOPHEN 1,000 MG/100 ML VIAL IV STA (19:09)
[2024-04-03] MEDS: DICYCLOMINE HCL 10 MG CAP PO ONE (19:09)
[2024-04-03] MEDS: ASPIRIN 81 MG CHEW PO STA (20:34)
[2024-04-03] MEDS ORDERED: Heparin IV Adult Wt-Based Low-Dose w/ INITIAL Bolus Protocol IV STA (20:34)
[2024-04-03] MEDS: NITROGLYCERIN 2% OINTMENT 30GM TUBE EXT STA (20:35)
[2024-04-03] MEDS ORDERED: HEPARIN SOD (PORCINE) 1000 UNIT/ML IV ONE (20:50)
[2024-04-03] MEDS: HEPARIN SOD (PORCINE) 1000 UNIT/ML IV ONE (21:48)
[2024-04-03] MEDS: HEPARIN SODIUM/DEXTROSE 25,000 UNITS/500 ML BAG IV SCH (21:49)
--- NOTE | 2024-04-03 23:18 | History & Physical Report ---
Date of Service April 03, 2024 Assessment & Plan (1) NSTEMI (non-ST elevated myocardial infarction): Plan: 64-year-old female with past medical history significant for type 2 diabetes, hyperlipidemia, hiatal hernia, chronic bronchitis, hypertension, ventricular premature depolarization, history of rectal prolapse, history of major depression, bipolar 1 disorder, tobacco use disorder, alcohol dependence in remission, history of hepatitis C virus infection cured after antiviral drug therapy, medical marijuana use, presents with throat and chest pain. Patient says she is having pain in her throat region and also in the upper chest going on for last couple of days. The pain comes on its own. It is on and off. Its about 8/10 in severity. No sore throat or difficulty swallowing. Patient says she is having sweating. No nausea. No dizziness. Had headache earlier but resolved now. Vision is okay. No runny nose. No fevers. No abdominal pain. Normal bowel and bladder movements. Denies any blood in stools or black stools. Denies any hematuria. Ambulating okay. Patient denies any worsening of symptoms while ambulating. Patient recently was treated for COPD with azithromycin at end of January. Currently asymptomatic and resting comfortably. Non-ST elevated VT Presented with throat pain and upper chest pain Initial troponin 15 and repeat troponin is 245 EKG no acute findings Started on IV heparin and aspirin Continue home rosuvastatin and metoprolol succinate Telemetry N.p.o. Serial cardiac enzymes and echo Consult cardiology in a.m. for further recommendations Type 2 diabetes Hold home p.o. medications Sliding scale Follow HbA1c levels Will monitor Hyperlipidemia On statin Hypertension On metoprolol succinate ,lisinopril and amlodipine Will monitor Hiatal hernia On omeprazole Chronic bronchitis Ongoing smoking 4 mm right and 2 mm left lower lobe pulmonary nodule seen on CT chest needs follow-up Mild reactive multicompartment cervical adenitis on CT soft tissue neck. Recently treated with azithromycin for COPD. Needs follow-up Smoking cessation History of depression Bipolar disorder Pulmonary function History of hep C virus infection cured after antiviral drug therapy per records DVT prophylaxis On IV heparin Disposition Telemetry Full code. History of Present Illness Chief Complaint: Chest pain Primary Care Provider: Basil Montenegro DO 64-year-old female with past medical history significant for type 2 diabetes, hyperlipidemia, hiatal hernia, chronic bronchitis, hypertension, ventricular premature depolarization, history of rectal prolapse, history of major depression, bipolar 1 disorder, tobacco use disorder, alcohol dependence in remission, history of hepatitis C virus infection cured after antiviral drug therapy, medical marijuana use, presents with throat and chest pain. Patient says she is having pain in her throat region and also in the upper chest going on for last couple of days. The pain comes on its own. It is on and off. Its about 8/10 in severity. No sore throat or difficulty swallowing. Patient says she is having sweating. No nausea. No dizziness. Had headache earlier but resolved now. Vision is okay. No runny nose. No fevers. No abdominal pain. Normal bowel and bladder movements. Denies any blood in stools or black stools. Denies any hematuria. Ambulating okay. Patient denies any worsening of symptoms while ambulating. Patient recently was treated for COPD with azithromycin at end of January. Currently asymptomatic and resting comfortably. Past medical history. As mentioned above Past surgical history. Colonoscopy. Hemorrhoidectomy. Proctopexy. Social history. Smokes 0.5 pack a day for last 47 years. No alcohol use currently. Smokes marijuana as per [employer]. Family history. No family history on file Allergies Allergy/AdvReac Type Severity Reaction Status Date / Time oxycodone Allergy Intermediate PERCOCET-HI Verified 06/30/22 17:19 VES Home Medications Medication Instructions Recorded Confirmed Type amlodipine 10 mg tablet 10 mg PO [facility] 05/21/18 04/03/24 History diclofenac sodium 75 mg 75 mg PO UD 05/21/18 04/03/24 History tablet,delayed release metoprolol succinate 50 mg 50 mg PO [facility] 05/21/18 04/03/24 History tablet,extended release 24 hr venlafaxine 150 mg 150 mg PO [facility] 05/21/18 04/03/24 History capsule,extended release 24 hr venlafaxine 75 mg tablet 75 mg PO [facility] 05/21/18 04/03/24 History empagliflozin 10 mg tablet 10 mg PO [facility] 06/30/22 04/03/24 History (Jardiance) lisinopril 40 mg tablet 20 mg PO [facility] 06/30/22 04/03/24 History metformin 500 mg tablet,extended 1,500 mg PO [facility] 06/30/22 04/03/24 History release 24 hr rosuvastatin 5 mg tablet 5 mg PO [facility] 06/30/22 04/03/24 History omeprazole 20 mg capsule,delayed 20 mg PO DAILY 04/03/24 04/03/24 History release tramadol 50 mg tablet 50 - 100 mg PO UD PRN pain 04/03/24 04/03/24 History Past Med/Surg History Problem List Hyperglycemia (Acute) Elevated troponin (Acute) NSTEMI (non-ST elevated myocardial infarction) Chest pain (Acute) Alcohol dependence in remission Bipolar 1 disorder Hiatal hernia Encounter for pre-operative examination Acute esophageal obstruction (Acute) Precordial chest pain (Acute) Diabetes mellitus (Chronic) HTN (hypertension) (Chronic) Dyslipidemia (Chronic) Depression (Chronic) H/O hemorrhoidectomy (Chronic) Epigastric abdominal pain (Acute) Fatigue (Acute) Nausea vomiting and diarrhea (Acute) Medical History Rectal prolapse Hepatitis C Family History Other Diabetes Heart disease Hypertension Social History Smoking Status: Current every day smoker Tobacco Type: Cigarettes packs per day: 0.5; Cigarettes Per Day: 10; Do You Dip or Chew Tobacco: No; Tobacco Cessation Education Requested by Patient: No Hx Alcohol Use: No (Patient reported.) Hx Substance Use: Yes Last Used Substance: Days (ago) Preferred Language: Beninese Communication Ability: Effective [employer] Required: No Beliefs That Will Affect Care: None marital status: Single Current Living Situation: Alone Current Living Situation Comment: 4 year old grandson lives with patient current occupational status: employed 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 ENT- oropharynx clear Neck- supple, no JVD. Lungs- clear to auscultation no wheezing or crackles Heart- regular rhythm; no murmur, no gallop. Abdomen- normal bowel sounds, soft, nontender, no distension Extremities- no pretibial edema, no erythema seen. Neuro- alert, oriented PERRL, EOMI; no facial palsy; no dysarthria; moves extremities Results & Data Results & Data Vital Signs (Past 12 Hours) Vital Signs Temp Pulse Resp BP Pulse Ox O2 Del Method 04/03/24 22:33 63 21 151/94 H 93 04/03/24 22:00 67 20 120/79 97 04/03/24 21:33 60 23 145/92 H 96 04/03/24 21:15 60 22 149/98 H 95 04/03/24 20:18 66 18 140/88 97 04/03/24 19:03 65 17 96 04/03/24 19:00 63 14 165/87 H 93 04/03/24 18:30 63 23 176/112 H 92 04/03/24 18:00 175/109 H 04/03/24 17:30 68 12 175/120 H 94 04/03/24 17:12 76 17 174/110 H 94 Room Air 04/03/24 16:15 82 04/03/24 16:00 79 17 169/108 H 95 04/03/24 14:30 89 20 151/104 H 95 04/03/24 14:30 Room Air 04/03/24 14:30 Room Air 04/03/24 14:18 36.2 C L 94 H 18 152/94 H 94 Room Air Diagnostic Findings Laboratory Results WBC 12.98 K/ul (4.8-10.8) H 04/03/24 14:33 RBC 4.83 M/uL (4.20-5.40) 04/03/24 14:33 Hgb 14.6 g/dl (12.0-16.0) 04/03/24 14:33 Hct 43.5 % (37.0-47.0) 04/03/24 14:33 MCV 90.1 fL (80.0-100.0) 04/03/24 14:33 MCH 30.2 pg (25.0-34.0) 04/03/24 14:33 MCHC 33.6 g/dL (32.0-36.0) 04/03/24 14:33 RDW Std Deviation 40.5 fL (36.4-46.3) 04/03/24 14:33 RDW Coeff of Mike 12.3 % (11.5-14.5) 04/03/24 14:33 Plt Count 302 K/uL (130-400) 04/03/24 14:33 MPV 10.9 fL (9.4-12.4) 04/03/24 14:33 Immature Gran % (Auto) 0.4 % 04/03/24 14:33 Neut % (Auto) 72.9 % 04/03/24 14:33 Lymph % (Auto) 18.5 % 04/03/24 14:33 [place] % (Auto) 6.8 % 04/03/24 14:33 Eos % (Auto) 1.0 % 04/03/24 14:33 Baso % (Auto) 0.4 % 04/03/24 14:33 Neut # (Auto) 9.47 K/uL (1.40-6.50) H 04/03/24 14:33 Lymph # (Auto) 2.40 K/uL (1.20-3.40) 04/03/24 14:33 [place] # (Auto) 0.88 K/uL (0.11-0.59) H 04/03/24 14:33 Eos # (Auto) 0.13 K/uL (0.00-0.50) 04/03/24 14:33 Baso # (Auto) 0.05 K/uL (0.00-0.20) 04/03/24 14:33 Immature Gran # (Auto) 0.05 K/uL (0.01-0.20) 04/03/24 14:33 PT 10.2 Seconds (9.0-12.0) 04/03/24 14:33 INR 0.9 (0.9-1.1) 04/03/24 14:33 D-Dimer 430 ug/L FEU (0-500) 04/03/24 14:33 Sodium 137 mmol/L (136-145) 04/03/24 14:33 Potassium 3.6 mmol/L (3.5-5.1) 04/03/24 14:33 Chloride 104 mmol/L (98-107) 04/03/24 14:33 Carbon Dioxide 22 mmol/L (21-32) 04/03/24 14:33 Anion Gap 11 (3-11) 04/03/24 14:33 BUN 17 mg/dl (6-23) 04/03/24 14:33 Creatinine 0.52 mg/dl (0.6-1.2) L 04/03/24 14:33 Est Cr Clr Drug Dosing 101.2 ml/min 04/03/24 14:33 eGFR 103.04 04/03/24 14:33 BUN/Creatinine Ratio 32.7 (10-20) H 04/03/24 14:33 Glucose 275 mg/dl (70-99(Fasting)) H 04/03/24 14:33 Calcium 9.1 mg/dl (8.6-10.3) 04/03/24 14:33 Magnesium 1.8 mg/dl (1.7-2.4) 04/03/24 14:33 Total Bilirubin 0.3 mg/dl (0.2-1.0) 04/03/24 14:33 AST 13 U/L (13-39) 04/03/24 14:33 ALT 13 U/L (7-52) 04/03/24 14:33 Alkaline Phosphatase 99 U/L (34-104) 04/03/24 14:33 Troponin I High Sens 245.2 pg/ml (0-14) H* D 04/03/24 19:17 Total Protein 6.9 gm/dl (6.0-8.3) 04/03/24 14:33 Albumin 4.1 gm/dl (3.4-5.0) 04/03/24 14:33 Globulin 2.8 gm/dl (2.5-4.0) 04/03/24 14:33 Albumin/Globulin Ratio 1.5 (0.9-2) 04/03/24 14:33 Lipase 168 U/L (11-82) H 04/03/24 14:33 TSH 0.722 uIu/ml (0.300-4.500) 04/03/24 14:33 Impressions Chest X-Ray 04/03/24 14:39 EXAM: Radiograph of the Chest 1 View INDICATION: Chest pain. TECHNIQUE: Frontal view of the chest. COMPARISON: 06/30/2022 and 09/22/2019 FINDINGS: Lungs and pleural spaces: Stable mild basilar scarring. No consolidation or pulmonary edema. No pleural effusion or pneumothorax. Heart: Shape and configuration within normal limits allowing for technique. Mediastinum: Stable small hiatal hernia. Bones/joints: Degenerative changes noted throughout the spine. No acute osseous abnormality seen. Soft tissues: No abnormality noted. No radiopaque foreign body noted. Upper abdomen: No abnormality noted. IMPRESSION: Stable chronic changes. No acute disease. ACT 112: Negative or not required by law. Electronically signed by Massiel Whitaker 04-03-2024 3:[address] 04/03/24 15:35 EXAM: CT Chest With Intravenous Contrast INDICATION: Dysphagia. Chest pain. TECHNIQUE: Axial computed tomography images of the chest with intravenous contrast. Sagittal and coronal reformatted images were created and reviewed. This CT exam was performed using one or more of the following dose reduction techniques: automated exposure control, adjustment of the mA and/or kV according to patient size, and/or use of iterative reconstruction technique. CONTRAST: 94ml of Optiray 320 was administered intravenously. COMPARISON: No relevant prior studies available. FINDINGS: Limitations: None. Lungs and pleural spaces: 4 mm noncalcified right lower lobe pulmonary nodule series 5 image 29. 2 mm subpleural left lower lobe pulmonary nodule image 41 series 5. Scattered areas of coarse scarring or atelectasis. No confluent consolidation. No pleural effusion or pneumothorax. No bronchiectasis or honeycombing. Heart: Mild cardiomegaly. Dense mitral annular calcification noted. Mediastinum: Moderate hiatal hernia contains the gastric fundus. Thyroid: No abnormality noted. Bones/joints: Degenerative changes noted throughout the spine. No acute osseous abnormality seen. Soft tissues: No significant abnormality noted. Vasculature: No abnormality noted. No thoracic aortic aneurysm. Lymph nodes: No enlarged lymph nodes. Gallbladder and bile ducts: Mild intrahepatic biliary dilatation noted. Visualized portion of the common bile duct is not dilated. No calcified stone noted in the portion of the gallbladder visualized. Kidneys and ureters: There is mild cortical scarring of the visualized portion of the left kidney. IMPRESSION: 1. No acute abnormality in the thorax. 2. Moderate hiatal hernia. 3. 4 mm right and 2 mm left lower lobe pulmonary nodules. Fleischner Society Guidelines suggest no follow-up is necessary for patients with a low or high risk of malignancy. 4. Mild cardiomegaly and mitral annular calcification. 5. Mild intrahepatic biliary dilatation. ACT 112: Negative or not required by law. Electronically signed by Massiel Whitaker 04-03-2024 4:50 PM [address] Tissue Ne[address] 04/03/24 15:35 EXAM: CT Neck With Intravenous Contrast INDICATION: Dysphagia. Chest pain. TECHNIQUE: Axial computed tomography images of the neck with intravenous contrast. Sagittal and coronal reformatted images were created and reviewed. This CT exam was performed using one or more of the following dose reduction techniques: automated exposure control, adjustment of the mA and/or kV according to patient size, and/or use of iterative reconstruction technique. CONTRAST: 94ml of Optiray 320 was administered intravenously. COMPARISON: No relevant prior studies available. FINDINGS: Oropharynx: No abnormality noted. No significant tonsillar enlargement. No peritonsillar abscess. Hypopharynx: No abnormality noted. Larynx: The vocal cords are closed and appear symmetric. There is no enhancing mass. Normal epiglottis. Trachea: No abnormality noted. Retropharyngeal space: No abnormality noted. Submandibular/parotid glands: No abnormality noted. Glands are normal in size. Thyroid: No abnormality noted. Bones/joints: Degenerative changes noted in the spine. There is grade 2 anterolisthesis C3 on C4. Grade 1 anterolisthesis C4 and C5. Grade 1 retrolisthesis of C5 on C6. Moderate diffuse facet arthrosis. There is multilevel mild canal stenosis. There is moderate to severe canal stenosis at C5-C6. Soft tissues: No significant abnormality noted. Vasculature: Heterogeneous luminal opacity in the left subclavian and brachiocephalic veins. Mild calcific plaque noted in the left carotid bulb with less than 50% stenosis. Calcification noted to a lesser extent in the right carotid bulb with no significant stenosis. Lymph nodes: Mild shotty left jugular compartment nodes. No enlarged nodes by CT criteria. Esophagus: Visualized esophagus is collapsed and grossly normal in appearance. Lung apices: No significant abnormality noted. IMPRESSION: 1. Severe degenerative changes of the cervical spine. No acute osseous abnormality. 2. Mildly reactive multicompartment cervical adenitis. ACT 112: Negative or not required by law. Electronically signed by Massiel Whitaker 04-03-2024 4:58 PM ECG Additional Comments: ECG. Normal sinus rhythm rate of 90. No acute ST changes seen. QTc 440. Code Status & VTE Plan VTE Prophylaxis Plan VTE Prophylaxis will be ordered: Yes
[2024-04-03] MEDS: MAGNESIUM SULFATE / D5W 1 GM/100 ML BAG IV ONE (23:37)
[2024-04-03] MEDS: METOPROLOL TARTRATE 1 MG/ML VIAL IV STA (23:37)
[2024-04-04] MEDS ORDERED: GLUCOSE 10 TAB/TUBE PO PRN (00:33)
[2024-04-04] MEDS ORDERED: GLUCOSE 40% GEL 15 GM TUBE PO PRN (00:33)
[2024-04-04] MEDS ORDERED: DEXTROSE 50% 50 ML SYRINGE IV PRN (00:33)
[2024-04-04] MEDS ORDERED: CARBOHYDRATES FOR HYPOGLYCEMIA PO PRN (00:33)
[2024-04-04] MEDS ORDERED: POLYETHYLENE (MIRALAX) 17 GM PACK PO PRN (00:33)
[2024-04-04] MEDS ORDERED: GLUCAGON FOR INJ 1 MG VIAL SQ PRN (00:33)
[2024-04-04] MEDS: POTASSIUM CHLORIDE CRTAB 20 MEQ TABCR PO STA (01:24)
[2024-04-04] MEDS: INSULIN ASPART PER UNIT CHARGE SC SCH ×2 (01:25→12:15)
[2024-04-04] MEDS: ACETAMINOPHEN 325 MG TAB PO PRN (02:02)
[2024-04-04 04:39] LABS: ANTI-Xa, UFH(UnfractionatedHep < 0.10 IU/ml (0.3-0.7)
[2024-04-04 05:44] LABS: Basophils # (auto) 0.04 K/uL (0.00-0.20); Basophils % (auto) 0.4 %; Eosinophils # (auto) 0.09 K/uL (0.00-0.50); Eosinophils % (auto) 0.9 %; Hematocrit (blood only) 45.1 % (37.0-47.0); Immature Granulocytes # (auto) 0.02 K/uL (0.01-0.20); Immature Granulocytes % (auto) 0.2 %; Lymphocytes % (auto) 30.3 %; Mean Corpuscular Hemoglobin 30.2 pg (25.0-34.0); Mean Corpuscular Hgb Conc 33.3 g/dL (32.0-36.0); Mean Corpuscular Volume 90.7 fL (80.0-100.0); Mean Platelet Volume 10.7 fL (9.4-12.4); Monocytes # (auto) 0.71 K/uL (0.11-0.59); Monocytes % (auto) 7.2 %; Neutrophils # (auto) 6.05 K/uL (1.40-6.50); Platelet Count 293 K/uL (130-400); RDW Coefficient of Variation 12.5 % (11.5-14.5); RDW Standard Deviation 41.2 fL (36.4-46.3); Red Blood Count 4.97 M/uL (4.20-5.40); White Blood Count 9.91 K/ul (4.8-10.8)
[2024-04-04 06:01] LABS: BUN Creatinine Ratio 25.5 (10-20); Creatinine Clr Calc Pharmacy 101.3 ml/min; Magnesium 2.2 mg/dl (1.7-2.4); Potassium 4.2 mmol/L (3.5-5.1)
[2024-04-04 06:28] LABS: Troponin I High Sensitivity 8630.8 pg/ml (0-14)
[2024-04-04 08:11] LABS: Estimated Average Glucose 189 mg/dl; Hemoglobin A1C 8.2 % (4.5-5.6)
--- NOTE | 2024-04-04 08:17 | Cardiology Consultation ---
Date of Consultation April 04, 2024 Assessment & Plan (1) NSTEMI (non-ST elevated myocardial infarction): (2) Chest pain: (3) HTN (hypertension): Plan 64 year old with past medical history of HTN, dyslipidemia, DM 2, tobacco use, who presents with throat pain and chest pain. EKG without ischemic changes, but troponin elevated (245 to 8630). Clinical picture consistent with NSTEMI. - continue heparin gtt - continue aspirin, lisinopril, amlodipine, metoprolol, rosuvastatin - echo with preserved EF 60-65%, no wall motion abnormality - discussed risks and benefits of cardiac catheterization, patient agreeable, will plan for cardiac catheterization tomorrow AM - NPO after midnight - repeat EKG and assessment with any changes in symptoms Case discussed with supervising physician, further recommendations per Dr. Guerra. I spent a total of 40 minutes on the date of service in preparation, delivery, and documentation of the care provided to this patient excluding any time spent in the performance of separately billed services. This visit was a split-shared visit with the substantial portion of the decision making performed by the supervising speech correction assistant/billing provider. Supervising Physician Co-Signing Physician Notes Patient was seen and personally examined. Full assessment and plan as outlined by advanced provider above. Care and management discussed and personally endorsed 64-year-old female with cardiovascular risk factors of hypertension diabetes hyperlipidemia chronic tobacco use and family history presents with approximate 1 week history of increasing fatigue followed by intermittent high sternal and neck and jaw pain initially with exertion and then at rest. Symptoms sustained resulting in ER presentation with findings consistent with non-ST segment elevation myocardial infarction. LV systolic function appears preserved Plan as above would recommend diagnostic coronary angiography. Procedure discussed in detail with patient with patient agreeable Continue IV heparin beta-thang, intensify statin Tobacco cessation mandated History of Present Illness Reason for Consultation: NSTEMI Requesting Physician: Hospitalist Attending Physician: Becca Moscoso MD History of Present Illness 64 year old with past medical history of type 2 diabetes, hyperlipidemia, hiatal hernia, chronic bronchitis, hypertension, ventricular premature depolarization, history of rectal prolapse, history of major depression, bipolar 1 disorder, tobacco use disorder, alcohol dependence in remission, history of hepatitis C virus infection cured after antiviral drug therapy, medical marijuana use, presents with throat and chest pain. States throat pain started a few days ago, thought it was related to reflux, but then radiated across upper chest. Pain comes and goes, when it is present it is severe and lasts for about an hour. Occurs at rest. Nothing seems to make it better. Did not try anything OTC at home. Denies shortness of breath, lightheadedness, dizziness, edema. EKG without acute ischemic changes. Troponin elevated at 245 and significantly increased to 8630 on repeat. Heparin gtt started for concern of NSTEMI. Cardiology consulted for further evaluation. Today on exam, she is resting comfortably in bed. Continues to have chest pain, although not as severe as when she presented. Notes she has been feeling fatigued for weeks. Has not seen cardiology in past. Lives with grandson whom she cares for. Active, but no routine exercise. Smokes 0.5 ppd. Daily marijuana use. Denies alcohol use. Family history: Mother- heart disease Maternal grandmother- from CHF No known family history of OH or sudden cardiac Allergies Allergy/AdvReac Type Severity Reaction Status Date / Time oxycodone Allergy Intermediate PERCOCET-HI Verified 06/30/22 17:19 [facility] Home Medications Medication Instructions Recorded Confirmed Type amlodipine 10 mg tablet 10 mg PO [facility] 05/21/18 04/03/24 History diclofenac sodium 75 mg 75 mg PO UD 05/21/18 04/03/24 History tablet,delayed release metoprolol succinate 50 mg 50 mg PO [facility] 05/21/18 04/03/24 History tablet,extended release 24 hr venlafaxine 150 mg 150 mg PO [facility] 05/21/18 04/03/24 History capsule,extended release 24 hr venlafaxine 75 mg tablet 75 mg PO [facility] 05/21/18 04/03/24 History empagliflozin 10 mg tablet 10 mg PO [facility] 06/30/22 04/03/24 History (Jardiance) lisinopril 40 mg tablet 20 mg PO [facility] 06/30/22 04/03/24 History metformin 500 mg tablet,extended 1,500 mg PO M 06/30/22 04/03/24 History release 24 hr rosuvastatin 5 mg tablet 5 mg PO QA 06/30/22 04/03/24 History omeprazole 20 mg capsule,delayed 20 mg PO DAILY 04/03/24 04/03/24 History release tramadol 50 mg tablet 50 - 100 mg PO UD PRN pain 04/03/24 04/03/24 History Patient History Medical History Rectal prolapse Hepatitis C Family History Other Diabetes Heart disease Hypertension Social History Smoking Status: Current every day smoker Tobacco Type: Cigarettes packs per day: 0.5; Cigarettes Per Day: 10; Do You Dip or Chew Tobacco: No; Tobacco Cessation Education Requested by Patient: No Hx Alcohol Use: No (Patient reported.) Hx Substance Use: Yes Last Used Substance: Days (ago) Preferred Language: Georgian Communication Ability: Effective Gear Tester Required: No Beliefs That Will Affect Care: None marital status: Single Current Living Situation: Alone Current Living Situation Comment: 4 year old grandson lives with patient current occupational status: employed 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 PULMONARY: No cough, sputum, or hemoptysis, No wheezing, No shortness of breath and No recent change in breathing. CARDIOVASCULAR: + chest pain, No dyspnea on exertion, No edema, No palpitations and No syncope. GASTROINTESTINAL: No abdominal pain, No change in bowel habits, No significant heartburn, No nausea, No vomiting, No diarrhea, No constipation, No blood in stools or black tarry stools. No dysphagia. HEMATOLOGIC: No abnormal bleeding and No bruising. NEUROLOGICAL: Normal balance, No headaches and No weakness. Physical Exam Physical Exam: General: No acute distress. A+Ox3. HEENT: Normocephalic. Atraumatic. PERRL. EOMI. Conjunctiva and sclera clear. NECK: No carotid bruits. No JVD. Carotid upstrokes are brisk. Heart: RRR. S1 and S2 noted. No murmur. No rubs or gallops. PMI non displaced. Lungs: Clear to auscultation. No wheezes. No rhonchi. No rales. Abdomen: Normal bowel sounds. Soft. Nontender. No masses or organomegaly. No abdominal bruits. Extremities: No edema. No clubbing or cyanosis. Pulses: radial=2/4, posterior tibial=2/4, dorsalis pedis = 2/4. NEURO: No focal deficits. PSYCH: Appropriate affect and insight. Results & Data Vital Signs (Past 12 Hours) Vital Signs Temp Pulse Pulse Resp BP BP Pulse Ox 04/04/24 07:39 36.9 C 74 19 128/84 93 04/04/24 03:14 69 04/04/24 03:08 36.6 C 64 18 133/86 94 04/04/24 01:24 62 139/89 04/04/24 00:10 36.6 C 18 139/89 93 04/03/24 23:30 58 L 22 128/76 94 04/03/24 22:33 63 21 151/94 H 93 04/03/24 22:00 67 20 120/79 97 04/03/24 21:33 60 23 145/92 H 96 04/03/24 21:15 60 22 149/98 H 95 04/03/24 20:18 66 18 140/88 97 O2 Del Method 04/04/24 07:39 Room Air 04/04/24 03:14 04/04/24 03:08 Room Air 04/04/24 01:24 04/04/24 00:10 Room Air 04/03/24 23:30 04/03/24 22:33 04/03/24 22:00 04/03/24 21:33 04/03/24 21:15 04/03/24 20:18 Laboratory Results Cardiac Enzymes 04/03/24 04/03/24 04/04/24 Range/Units 14:33 19:17 05:24 AST 13 (13-39) U/L Troponin I High Sens 15.6 H 245.2 H* D 8630.8 H* D (0-14) pg/ml Coagulation 04/03/24 Range/Units 14:33 PT 10.2 (9.0-12.0) Seconds CBC 04/03/24 04/04/24 Range/Units 14:33 05:24 WBC 12.98 H 9.91 (4.8-10.8) K/ul RBC 4.83 4.97 (4.20-5.40) M/uL Hgb 14.6 15.0 (12.0-16.0) g/dl Hct 43.5 45.1 (37.0-47.0) % Plt Count 302 293 (130-400) K/uL Neut # (Auto) 9.47 H 6.05 (1.40-6.50) K/uL Lymph # (Auto) 2.40 3.00 (1.20-3.40) K/uL [place] # (Auto) 0.88 H 0.71 H (0.11-0.59) K/uL Eos # (Auto) 0.13 0.09 (0.00-0.50) K/uL Baso # (Auto) 0.05 0.04 (0.00-0.20) K/uL Comprehensive Metabolic Panel 04/03/24 04/04/24 Range/Units 14:33 05:24 Sodium 137 137 (136-145) mmol/L Potassium 3.6 4.2 (3.5-5.1) mmol/L Chloride 104 102 (98-107) mmol/L Carbon Dioxide 22 27 (21-32) mmol/L BUN 17 13 (6-23) mg/dl Creatinine 0.52 L 0.51 L (0.6-1.2) mg/dl Glucose 275 H 142 H (70-99(Fasting)) mg/dl Calcium 9.1 9.0 (8.6-10.3) mg/dl AST 13 (13-39) U/L ALT 13 (7-52) U/L Alkaline Phosphatase 99 (34-104) U/L Total Protein 6.9 (6.0-8.3) gm/dl Albumin 4.1 (3.4-5.0) gm/dl Intake and Output 04/03/24 04/04/24 04/04/24 22:59 06:59 14:59 Intake Total 600 / 700 100 / 700 133 / 133 Output Total 400 / 400 Balance 600 / 700 100 / 700 -267 / -267 Intake: IV 600 / 700 100 / 700 133 / 133 Acetaminophen 1,000 mg In 100 100 / 100 ml @ 400 mls/hr IV NOW STA Rx#: [id number] Heparin Sodium/Dextrose 25,000 133 / 133 units In 500 ml @ 700 UNITS/HR 14 mls/hr IV .Q24H SUDHIR Rx#: [id number] Magnesium Sulfate / D5w 1 gm In 100 / 100 100 ml @ 50 mls/hr IV ONE ONE Rx#:[id number] Sodium Chloride 0.9% 500 ml @ 500 / 500 999 mls/hr IV .Q31M ONE Rx#: [id number] Output: Urine 400 / 400 Other: Other Intake Source Patient is NPO # Unmeasured Voids 1 Weight 70.7 kg Weight Measurement Method Built in [facility] Diagnostic Findings Telemetry reviewed with rate controlled in 60s, frequent PVCs and runs of wide complex tachycardia. EKG 04/04/24: NSR, 68 bpm Echo 04/04/24: EF 60-65%, no WMA, Grade 1 diastolic dysfunction (2) Chest pain Chest pain type: chest pain due to myocardial ischemia Ischemic chest pain type: unstable angina pectoris Qualified Code(s): I20.0 - Unstable angina (3) HTN (hypertension) Hypertension type: primary hypertension Qualified Code(s): I10 - Essential (primary) hypertension
[2024-04-04 08:21] LABS: Amphetamines+Metham, Urine Neg (Neg); Barbiturates, Urine Neg (Neg); Benzodiazepine, Urine Neg (Neg); Cocaine, Urine Neg (Neg); Fentanyl, Urine Neg (Neg); MDMA (Ecstacy), Urine Neg (Neg); Marijuana, Urine Pos (Neg); Methadone, Urine Neg (Neg); Opiate, Urine Neg (Neg); Phencyclidine, Urine Neg (Neg)
[2024-04-04] MEDS: HEPARIN SOD (PORCINE) 1000 UNIT/ML IV ONE ×2 (08:23→22:53)
[2024-04-04] MEDS: ROSUVASTATIN CALCIUM 5 MG TAB PO SCH (08:25)
[2024-04-04] MEDS: PANTOprazole 40 MG TAB PO SCH (08:25)
[2024-04-04] MEDS: amLODIPine BESYLATE 5 MG TAB PO SCH (08:25)
[2024-04-04] MEDS: METOPROLOL SUCC 50MG EXT REL TAB PO SCH (08:25)
--- NOTE | 2024-04-04 08:25 | Electrocardiogram Report ---
Test Reason : Blood Pressure : */* mmHG Vent. Rate : 90 BPM Atrial Rate : 90 BPM P-R Int : 148 ms QRS Dur : 82 ms QT Int : 360 ms P-R-T Axes : 75 84 57 degrees QTcB Int : 440 ms Normal sinus rhythm Normal ECG When compared with ECG of 30-Jun-2022 16:39, No significant change was found Confirmed by Loi Becerra ([id number]) on 04/04/2024 8:24:53 AM Referred By: REFERRED SELF Confirmed By: Loi Becerra
[2024-04-04] MEDS: VENLAFAXINE HCL XR 75 MG CAPXR PO SCH (08:26)
[2024-04-04] MEDS: lisinopril 20 MG TAB PO SCH (08:26)
[2024-04-04] MEDS: VENLAFAXINE HCL XR 150 MG CAPXR PO SCH (08:26)
[2024-04-04] MEDS: ASPIRIN 81 MG ECTAB PO SCH (08:26)
--- NOTE | 2024-04-04 08:29 | Electrocardiogram Report ---
Test Reason : Blood Pressure : */* mmHG Vent. Rate : 58 BPM Atrial Rate : 58 BPM P-R Int : 148 ms QRS Dur : 78 ms QT Int : 446 ms P-R-T Axes : 80 76 77 degrees QTcB Int : 437 ms Sinus bradycardia Borderline ECG When compared with ECG of 03-Apr-2024 14:24, Vent. rate has decreased by 32 bpm Confirmed by Loi Becerra ([id number]) on 04/04/2024 8:28:42 AM Referred By: REFERRED SELF Confirmed By: Loi Becerra
--- NOTE | 2024-04-04 08:30 | Electrocardiogram Report ---
Test Reason : Blood Pressure : */* mmHG Vent. Rate : 65 BPM Atrial Rate : 65 BPM P-R Int : 136 ms QRS Dur : 78 ms QT Int : 450 ms P-R-T Axes : 74 87 85 degrees QTcB Int : 468 ms Sinus rhythm with marked sinus arrhythmia Possible Old Septal infarct (cited on or before 03-Apr-2024) Abnormal ECG When compared with ECG of 03-Apr-2024 20:41, No significant change was found Confirmed by Loi Becerra ([id number]) on 04/04/2024 8:30:41 AM Referred By: REFERRED SELF Confirmed By: Loi Becerra
--- NOTE | 2024-04-04 08:33 | Electrocardiogram Report ---
Test Reason : Blood Pressure : */* mmHG Vent. Rate : 68 BPM Atrial Rate : 68 BPM P-R Int : 116 ms QRS Dur : 78 ms QT Int : 438 ms P-R-T Axes : 60 94 73 degrees QTcB Int : 465 ms Normal sinus rhythm Rightward axis Borderline ECG When compared with ECG of 03-Apr-2024 23:24, Criteria for Septal infarct are no longer Present Confirmed by Loi Becerra ([id number]) on 04/04/2024 8:33:03 AM Referred By: REFERRED SELF Confirmed By: Loi Becerra
--- NOTE | 2024-04-04 09:43 | Hospitalist Progress Note ---
Date of Service April 04, 2024 Assessment & Plan (1) NSTEMI (non-ST elevated myocardial infarction): Plan: Troponin is still, EKG rising, last measurement was 8600, EKG was relatively stable without any finding, echocardiogram did not show any wall motion abno rmality and ejection fraction was stable, patient is currently chest pain-free, continue with heparin infusion and aspirin and statin, n.p.o. midnight for cardiac catheterization tomorrow per cardiology. (2) Hypertension, essential: Plan: Blood pressure is stable, continue with amlodipine 10 mg daily, lisinopril 20 mg daily and Toprol-XL 50 mg daily. (3) Bipolar 1 disorder: Plan: Continue with Effexor extended release to 25 mg daily. (4) Mixed hyperlipidemia: Plan: Continue with Crestor 5 mg daily. Plan Continue with heparin infusion, monitor for any rhythm abnormality, n.p.o. at midnight for cardiac catheterization tomorrow. Admission and Anticipated Discharge Date Admission Date: April 03, 2024 Subjective Patient is a 64-year-old female with history of diabetes mellitus type 2, hyperlipidemia, hypertension, PVC, depression/bipolar disorder and alcohol dependence, history of hepatitis C, treated after antiviral treatment who was admitted to the hospital with chest and throat discomfort. She was found to have elevated troponins later, EKG was unremarkable, urine toxic screen was only positive for marijuana which she admitted using. Her echocardiogram showed mild concentric LVH with ejection fraction of 60 to 65% with grade 1 diastolic LV dysfunction. Seen by cardiology, recommended for n.p.o. after midnight for cardiac catheterization tomorrow. Patient is currently chest pain-free on heparin infusion and aspirin. Physical Exam Physical Exam: VITALS: Reviewed. WEIGHT/BMI reviewed. GEN: Healthy appearing, well-developed, NAD. CV: RRR, no m/r/g., Reviewing telemetry overnight showed patient had several episodes of PVC run(longest was 4 beats long) LUNGS: CTAB, no w/r/c. ABD: Soft, NT/ND, NBS, no masses or organomegaly. : N/A SKIN: Warm, well perfused. No skin rashes or abnormal lesions. MSK: No deformities, Normal gait. EXT: No clubbing, cyanosis, or edema. NEURO: Ambulating with no limitations. Normal muscle strength and tone. No focal deficits. Results & Data Results & Data Vital Signs (Past 12 Hours) Vital Signs Temp Pulse Pulse Resp BP BP Pulse Ox 04/04/24 07:39 36.9 C 74 19 128/84 93 04/04/24 03:14 69 04/04/24 03:08 36.6 C 64 18 133/86 94 04/04/24 01:24 62 139/89 04/04/24 00:10 36.6 C 18 139/89 93 04/03/24 23:30 58 L 22 128/76 94 04/03/24 22:33 63 21 151/94 H 93 04/03/24 22:00 67 20 120/79 97 O2 Del Method 04/04/24 07:39 Room Air 04/04/24 03:14 04/04/24 03:08 Room Air 04/04/24 01:24 04/04/24 00:10 Room Air 04/03/24 23:30 04/03/24 22:33 04/03/24 22:00 Laboratory Results Laboratory Results - last 24 hr 04/03/24 04/03/24 04/04/24 14:33 19:17 01:29 WBC 12.98 H RBC 4.83 Hgb 14.6 Hct 43.5 MCV 90.1 MCH 30.2 MCHC 33.6 RDW Std Deviation 40.5 RDW Coeff of Mike 12.3 Plt Count 302 MPV 10.9 Immature Gran % (Auto) 0.4 Neut % (Auto) 72.9 Lymph % (Auto) 18.5 [place] % (Auto) 6.8 Eos % (Auto) 1.0 Baso % (Auto) 0.4 Neut # (Auto) 9.47 H Lymph # (Auto) 2.40 [place] # (Auto) 0.88 H Eos # (Auto) 0.13 Baso # (Auto) 0.05 Immature Gran # (Auto) 0.05 PT 10.2 INR 0.9 D-Dimer 430 Heparin Anti-Xa, Unfract Sodium 137 Potassium 3.6 Chloride 104 Carbon Dioxide 22 Anion Gap 11 BUN 17 Creatinine 0.52 L Est Cr Clr Drug Dosing 101.2 eGFR 103.04 BUN/Creatinine Ratio 32.7 H Glucose 275 H POC Glucose 142 H Estimat Average Glucose Hemoglobin A1c Calcium 9.1 Magnesium 1.8 Total Bilirubin 0.3 AST 13 ALT 13 Alkaline Phosphatase 99 Troponin I High Sens 15.6 H 245.2 H* D Total Protein 6.9 Albumin 4.1 Globulin 2.8 Albumin/Globulin Ratio 1.5 Lipase 168 H TSH 0.722 Urine Opiates Screen Ur Methadone, Qual Urine Fentanyl Screen Urine Barbiturates Ur Phencyclidine (PCP) U Amphetamin/Meth Scrn MDMA (Ecstasy) Screen U Benzodiazepines Scrn Ur Cocaine Metabolite U Marijuana (THC) Screen U Marijuana THC Carboxy Drug Screen Comment 04/04/24 04/04/24 04/04/24 03:48 05:24 07:44 WBC 9.91 RBC 4.97 Hgb 15.0 Hct 45.1 MCV 90.7 MCH 30.2 MCHC 33.3 RDW Std Deviation 41.2 RDW Coeff of Mike 12.5 Plt Count 293 MPV 10.7 Immature Gran % (Auto) 0.2 Neut % (Auto) 61.0 Lymph % (Auto) 30.3 [place] % (Auto) 7.2 Eos % (Auto) 0.9 Baso % (Auto) 0.4 Neut # (Auto) 6.05 Lymph # (Auto) 3.00 [place] # (Auto) 0.71 H Eos # (Auto) 0.09 Baso # (Auto) 0.04 Immature Gran # (Auto) 0.02 PT INR D-Dimer Heparin Anti-Xa, Unfract < 0.10 L Sodium 137 Potassium 4.2 Chloride 102 Carbon Dioxide 27 Anion Gap 8 BUN 13 Creatinine 0.51 L Est Cr Clr Drug Dosing 101.3 eGFR 103.53 BUN/Creatinine Ratio 25.5 H Glucose 142 H POC Glucose Estimat Average Glucose 189 Hemoglobin A1c 8.2 H Calcium 9.0 Magnesium 2.2 Total Bilirubin AST ALT Alkaline Phosphatase Troponin I High Sens 8630.8 H* D Total Protein Albumin Globulin Albumin/Globulin Ratio Lipase TSH Urine Opiates Screen Neg Ur Methadone, Qual Neg Urine Fentanyl Screen Neg Urine Barbiturates Neg Ur Phencyclidine (PCP) Neg U Amphetamin/Meth Scrn Neg MDMA (Ecstasy) Screen Neg U Benzodiazepines Scrn Neg Ur Cocaine Metabolite Neg U Marijuana (THC) Screen Pos H U Marijuana THC Carboxy Pending Drug Screen Comment Pending Diagnostic Findings Chest X-Ray 04/03/24 14:39 EXAM: Radiograph of the Chest 1 View INDICATION: Chest pain. TECHNIQUE: Frontal view of the chest. COMPARISON: 06/30/2022 and 09/22/2019 FINDINGS: Lungs and pleural spaces: Stable mild basilar scarring. No consolidation or pulmonary edema. No pleural effusion or pneumothorax. Heart: Shape and configuration within normal limits allowing for technique. Mediastinum: Stable small hiatal hernia. Bones/joints: Degenerative changes noted throughout the spine. No acute osseous abnormality seen. Soft tissues: No abnormality noted. No radiopaque foreign body noted. Upper abdomen: No abnormality noted. IMPRESSION: Stable chronic changes. No acute disease. ACT 112: Negative or not required by law. Electronically signed by Massiel Whitaker 04-03-2024 3:[address] 04/03/24 15:35 EXAM: CT Chest With Intravenous Contrast INDICATION: Dysphagia. Chest pain. TECHNIQUE: Axial computed tomography images of the chest with intravenous contrast. Sagittal and coronal reformatted images were created and reviewed. This CT exam was performed using one or more of the following dose reduction techniques: automated exposure control, adjustment of the mA and/or kV according to patient size, and/or use of iterative reconstruction technique. CONTRAST: 94ml of Optiray 320 was administered intravenously. COMPARISON: No relevant prior studies available. FINDINGS: Limitations: None. Lungs and pleural spaces: 4 mm noncalcified right lower lobe pulmonary nodule series 5 image 29. 2 mm subpleural left lower lobe pulmonary nodule image 41 series 5. Scattered areas of coarse scarring or atelectasis. No confluent consolidation. No pleural effusion or pneumothorax. No bronchiectasis or honeycombing. Heart: Mild cardiomegaly. Dense mitral annular calcification noted. Mediastinum: Moderate hiatal hernia contains the gastric fundus. Thyroid: No abnormality noted. Bones/joints: Degenerative changes noted throughout the spine. No acute osseous abnormality seen. Soft tissues: No significant abnormality noted. Vasculature: No abnormality noted. No thoracic aortic aneurysm. Lymph nodes: No enlarged lymph nodes. Gallbladder and bile ducts: Mild intrahepatic biliary dilatation noted. Visualized portion of the common bile duct is not dilated. No calcified stone noted in the portion of the gallbladder visualized. Kidneys and ureters: There is mild cortical scarring of the visualized portion of the left kidney. IMPRESSION: 1. No acute abnormality in the thorax. 2. Moderate hiatal hernia. 3. 4 mm right and 2 mm left lower lobe pulmonary nodules. Fleischner Society Guidelines suggest no follow-up is necessary for patients with a low or high risk of malignancy. 4. Mild cardiomegaly and mitral annular calcification. 5. Mild intrahepatic biliary dilatation. ACT 112: Negative or not required by law. Electronically signed by Massiel Whitaker 04-03-2024 4:50 PM Soft Tissue Neck CT 04/03/24 15:35 EXAM: CT Neck With Intravenous Contrast INDICATION: Dysphagia. Chest pain. TECHNIQUE: Axial computed tomography images of the neck with intravenous contrast. Sagittal and coronal reformatted images were created and reviewed. This CT exam was performed using one or more of the following dose reduction techniques: automated exposure control, adjustment of the mA and/or kV according to patient size, and/or use of iterative reconstruction technique. CONTRAST: 94ml of Optiray 320 was administered intravenously. COMPARISON: No relevant prior studies available. FINDINGS: Oropharynx: No abnormality noted. No significant tonsillar enlargement. No peritonsillar abscess. Hypopharynx: No abnormality noted. Larynx: The vocal cords are closed and appear symmetric. There is no enhancing mass. Normal epiglottis. Trachea: No abnormality noted. Retropharyngeal space: No abnormality noted. Submandibular/parotid glands: No abnormality noted. Glands are normal in size. Thyroid: No abnormality noted. Bones/joints: Degenerative changes noted in the spine. There is grade 2 anterolisthesis C3 on C4. Grade 1 anterolisthesis C4 and C5. Grade 1 retrolisthesis of C5 on C6. Moderate diffuse facet arthrosis. There is multilevel mild canal stenosis. There is moderate to severe canal stenosis at C5-C6. Soft tissues: No significant abnormality noted. Vasculature: Heterogeneous luminal opacity in the left subclavian and brachiocephalic veins. Mild calcific plaque noted in the left carotid bulb with less than 50% stenosis. Calcification noted to a lesser extent in the right carotid bulb with no significant stenosis. Lymph nodes: Mild shotty left jugular compartment nodes. No enlarged nodes by CT criteria. Esophagus: Visualized esophagus is collapsed and grossly normal in appearance. Lung apices: No significant abnormality noted. IMPRESSION: 1. Severe degenerative changes of the cervical spine. No acute osseous abnormality. 2. Mildly reactive multicompartment cervical adenitis. ACT 112: Negative or not required by law. Electronically signed by Massiel Whitaker 04-03-2024 4:58 PM Medications Administered Current Inpatient Medications Acetaminophen (Acetaminophen 325 Mg Tab) 650 mg PO Q4H PRN PRN Reason: Pain or Fever Stop: 05/04/24 00:32 Last Admin: 04/04/24 02:02 Dose: 650 mg Amlodipine Besylate (Amlodipine Besylate 5 Mg Tab) [address] [facility] Stop: 05/04/24 08:59 Last Admin: 04/04/24 08:25 Dose: 10 mg Aspirin (Aspirin 81 Mg Ectab) [address] [facility] Stop: 05/04/24 08:59 Last Admin: 04/04/24 08:26 Dose: 81 mg Dextrose (Dextrose 50% 50 Ml Syringe) 25 - 50 ml IV UD PRN; Protocol PRN Reason: Hypoglycemia Protocol Stop: 05/04/24 00:32 Glucagon (Glucagon For Inj 1 Mg Vial) 1 mg SQ UD PRN; Protocol PRN Reason: Hypoglycemia Protocol Stop: 05/04/24 00:32 Glucose (Glucose 40% Gel 15 Gm Tube) 15 - 30 gm PO UD PRN; Protocol PRN Reason: Hypoglycemia Protocol Stop: 05/04/24 00:32 Glucose (Glucose 10 Tab/Tube) 4 - 8 tab PO UD PRN; Protocol PRN Reason: Hypoglycemia Protocol Stop: 05/04/24 00:32 Heparin Sodium/Dextrose (Heparin Sodium/Dextrose) 25,000 units in 500 mls @ 14 mls/hr IV .Q24H [facility]; Protocol Stop: 05/03/24 20:59 Last Titration: 04/04/24 07:19 Dose: 900 units/hr, 18 mls/hr Insulin Aspart (Insulin Aspart Per Unit Charge) 0 units SC Q6 [facility] Stop: 05/04/24 00:32 Last Admin: 04/04/24 07:26 Dose: Not Given Lisinopril (Lisinopril 20 Mg Tab) [address] [facility] Stop: 05/04/24 08:59 Last Admin: 04/04/24 08:26 Dose: 20 mg Metoprolol Succinate (Metoprolol Succ 50mg Ext Rel Tab) [address] [facility] Stop: 05/04/24 08:59 Last Admin: 04/04/24 08:25 Dose: 50 mg Miscellaneous (Carbohydrates For Hypoglycemia ) 15 - 30 gm PO UD PRN PRN Reason: Hypoglycemia Protocol Stop: 05/04/24 00:32 Nitroglycerin (Nitroglycerin Sl 0.4 Mg/Tab Tab) 0.4 mg SL Q5M PRN PRN Reason: Chest Pain Stop: 05/04/24 00:32 Pantoprazole Sodium (Pantoprazole 40 Mg Tab) 40 mg PO DAILY [facility] Stop: 05/04/24 08:59 Last Admin: 04/04/24 08:25 Dose: 40 mg Polyethylene Glycol (Polyethylene (Miralax) 17 Gm Pack) 17 gm PO DAILY PRN PRN Reason: Constipation Stop: 05/04/24 00:32 Rosuvastatin Calcium (Rosuvastatin Calcium 5 Mg Tab) 5 mg PO QAM [facility] Stop: 05/04/24 08:59 Last Admin: 04/04/24 08:25 Dose: 5 mg Venlafaxine HCl (Venlafaxine Hcl Xr 75 Mg Capxr) 75 mg PO QAM [facility] Stop: 05/04/24 08:59 Last Admin: 04/04/24 08:26 Dose: 75 mg Venlafaxine HCl (Venlafaxine Hcl Xr 150 Mg Capxr) 150 mg PO QAM [facility] Stop: 05/04/24 08:59 Last Admin: 04/04/24 08:26 Dose: 150 mg
[2024-04-04 22:19] LABS: ANTI-Xa, UFH(UnfractionatedHep 0.11 IU/ml (0.3-0.7)
--- OUTSIDE RECORDS SUMMARY | 2024-04-05 03:13 | External Medical Summary | Summary of Care ---
Author Name Unknown Organization [facility] Address [address] [place] [address] Phone [phone] Care Team Providers Care Tower Foreman Name Role Phone Jeancarlos Montenegromercedes Pattersonsunny Primary Care Provider Reason for Visit * Reason Onset Date Comments Medication Refill 03/01/2024 Encounter Details Date Type Department Care Team (Late st Contact Info) Description 03/01/2024 [facility] [address] [facility] [address] Sunshine Whitfield LPN DM type 2 nursing care encounter (HCC) Allergies Active Allergy Reactions Criticality Noted Date Comments Percocet Rash 07/25/2006 documented as of this encounter (statuses as of 03/01/2024) Medications Medication Sig Dispensed Refills Start Date End Date Status clobetasol propionate (TEMOVATE) 0.05 % ointmentIndicatio ns:Dermatitis,DM type 2 nursing care encounter (HCC) Apply to affected areas of hands twice daily as needed for flares 60 g 2 04/01/2017 Active Additional Information Patient not taking.Reported on 06/24/2023 Blood Glucose Monitoring Suppl (ONETOUCH VERIO) w/Device KITIndications:DM type 2 nursing care encounter (HCC) Use up to 4 times a day E11.9 1 Kit 04/01/2017 Active ONETOUCH DELICA LANCETS FINE MISC Use twice a day 100 Each 11 06/02/2018 Active Additional Information Patient not taking.Reported on 02/23/2024 lamoTRIgine (LAMICTAL) 25 MG Tablet Take 1 Tab by mouth 2 times a day. 180 Tab 3 09/17/2018 Active Glucose Blood STRPIndications:D M type 2 nursing care encounter ([facility]) USE STRIP TO CHECK GLUCOSE TWICE DAILY 200 Strip 3 06/24/2019 Active Additional Information Patient not taking.Reported on 02/23/2024 OneTouch Delica Lancets 33G : Use twice a day E11.9 200 Each 3 05/31/2021 Active Additional Information Patient not taking.Reported on 02/23/2024 Omeprazole 20 MG Oral Capsule Delayed Release (PriLOSEC)Indicat ions:Hiatal hernia,Acute gastritis, presence of bleeding unspecified, unspecified gastritis type TAKE 1 CAPSULE BY MOUTH ONCE DAILY TAKE ONE HOUR BEFORE THE FIRST MEAL OF THE DAY 90 Capsule 3 07/11/2023 Active OneTouch UltraSoft LancetsIndication s:DM type 2 nursing care encounter ([facility]) Check twice a day. E11.9 100 Each 3 07/28/2023 Active Additional Information Patient not taking.Reported on 02/23/2024 Empagliflozin 10 MG Oral Tablet (Jardiance)Indica tions:Type 2 diabetes mellitus with hemoglobin A1c goal of less than 7.0% ([facility]) Take 1 Tablet by mouth in the morning. 90 Tablet 1 09/19/2023 Active Rosuvastatin Calcium 5 MG Oral Tablet (Crestor) Take 1 Tablet by mouth in the morning. 90 Tablet 11/06/2023 Active Metoprolol Succinate ER 50 MG Oral Tablet Extended Release 24 Hour (toPROL XL)Indications:HT N, goal below 130/80 Take 1 Tablet by mouth in the morning. 90 Tablet 11/06/2023 Active Lisinopril 40 MG Oral Tablet Take 1/2 (one-half) tablet by mouth once daily 45 Tablet 11/06/2023 Active Venlafaxine HCl ER 150 MG Oral Capsule Extended Release 24 Hour (Effexor XR)Indications:Bi polar 1 disorder (HCC) Take 1 Capsule by mouth in the morning. 90 Capsule 11/06/2023 Active Venlafaxine HCl ER 75 MG Oral Capsule Extended Release 24 Hour (Effexor XR)Indications:Bi polar 1 disorder (HCC) Take 1 Capsule by mouth in the morning. 90 Capsule 11/06/2023 Active amLODIPine Besylate 10 MG Oral Tablet (Norvasc) Take 1 Tablet by mouth in the morning. 90 Tablet 11/06/2023 Active metFORMIN HCl ER 500 MG Oral Tablet Extended Release 24 Hour (Glucophage XR)Indications:Ty pe 2 diabetes mellitus with hemoglobin A1c goal of less than 7.0% ([facility]) Take 3 Tablets by mouth in the morning. 270 Tablet 1 12/25/2023 Active OneTouch Verio In Vitro Strip (Glucose Blood)Indications :DM type 2 nursing care encounter ([facility]) Use to check glucose twice daily E11.9 200 Strip 3 03/01/2024 Active OneTouch Verio In Vitro Strip (Glucose Blood)Indications :DM type 2 nursing care encounter ([facility]) Use to check glucose twice daily E11.9 200 Strip 3 07/28/2023 Discontinue d(Refill) documented as of this encounter (statuses as of 03/01/2024) Active Problems Problem Noted Date Diagnosed Date Type 2 diabetes mellitus without complication Chronic bronchitis 06/24/2023 Cellulitis of left lower limb 06/24/2023 Adjustment disorder with mixed anxiety and depre ssed mood 06/24/2023 Other bipolar disorder 07/08/2022 Type 2 diabetes mellitus with diabetic cataract 07/08/2022 Ventricular premature depolarization 09/13/2021 Nondisplaced fracture of fif th metatarsal bone, left foot, initial encounter for closed fracture 09/13/2021 Age-related nuclear cataract, bilateral 09/14/19 Hiatal hernia 09/13/2021 Major depressive disorder with single episode Medical marijuana use 09/13/2021 Hepatitis C virus infection cured after antiviral drug therapy 03/10/2018 Overview: HCV treated; SVR confirmed 03/04/2018 Alcohol dependence in remission 12/26/2017 Rectal prolapse 08/20/2017 Overview: Surgery 2018 Tobacco use disorder 08/20/2017 Type 2 diabetes mellitus wit h hemoglobin A1c goal of less than 7.0% 02/23/2009 Overview: Per Diabetes Taxonomy. ICD-10 update of inactive term ADVANCE DIRECTIVE INFORMATION 08/05/2006 Overview: Information offered-patient declined. HTN, goal below 130/80 Dyslipidemia, goal LDL below 100 MDD (major depressive disord er), single episode, in partial remission Bipolar 1 disorder documented as of this encounter (statuses as of 03/01/2024) Resolved Problems Problem Noted Date Diagnosed Date Resolved Date Bronchitis due to tobacco use 04/01/2017 12/26/2017 Chronic hepatitis C without hepatic coma 01/12/2016 03/10/2018 Overview: HCV treated; SVR confirmed 03/04/2018 S/p treatment 2017 HTN, GOAL BELOW 140/80 12/16/201108/02 Overview: Per HTN Protocol #27. Dermatitis 06/29/2009 06/08/2015 Cellulitis of hand 06/22/2009 6 HTN, goal below 130/80 05/25/200912/18 Overview: Per HTN Taxonomy. Type 2 diabetes mellitus wit h hemoglobin A1c goal of less than 7.0% 08/05/2006 02/23/2009 Overview: Per Diabetes Taxonomy. ICD-10 update of inactive term HTN, goal below 140/90 08/05/200605/25 Overview: Per HTN Taxonomy. Type 2 diabetes mellitus david ated without insulin 12/26/2017 documented as of this encounter (statuses as of 03/01/2024) Immunizations Name Administration Dates Next Due Covid-19 Ad26, Single Dose (Carol/J&J) 03/16/2021,08/25/2020 HEP A - Hepatitis A (Adult > 18 yrs) 09/23/2017 HepA Inact/HepB Recomb>=18yrs old 07/30/2017 Hepatitis B, 20+ yrs 09/23/2017,05/12/19 15,09/08/2013,05/24 Pneumococcal Conjugate Vacci ne, 20-valent (Zycculf32) 09/13/2021 Pneumococcal Polysaccharide PPV23 (Pneumovax) 08/05/2006 Seasonal Influenza Vac., MDV , IM, 0.5 mL (Fluzone) 05/12/2014,05/24/2013,02/19/2012,02/08,04/05/2010,02/02/2008,02/24/2007 Seasonal Influenza, PF, 6 M & above, IM , (FluLaval or Fluzone) 02/25/2022,03/16/2021,01/18/2020,01/05,06/16/2018,04/01/2017 Seasonal Influenza, Quadriva lent, No Preserve, IM 01/09/2016,04/06/2015 TDAP (age 10 and older)(Boostrix) 04/01/2017 TDAP, Age 7 and older, IM (Adacel) 08/05/2006 Zoster Vaccine Recombinant (Shingrix) 09/29/2019 ,07/13/2019 documented as of this encounter Social History Tobacco Use Types Packs/Day Years Used Date Smoking Tobacco: Every Day Cigarettes 0.5 47 Smokeless Tobacco: Never Comments:started age 13 Alcohol Use Standard Drinks/Week Comments Not Currently 0 (1 standard drink = 0.6 oz pur e alcohol) a few drinks a week PHQ-2 Answer Date Recorded PHQ-2 Score 8 09/29/2019 Hunger Vital Sign Answer Date Recorded Worried About Running Out of Food in the Last Ye ar Never true 07/13/2019 Ran Out of Food in the Last Year Never true 07/13/2019 Sex and Gender Information Value Date Recorded Sex Assigned at Female 07/13/2019 9:25 AM EDT Gender Identity Female 07/13/2019 9:25 AM EDT Sexual Orientation Straight 07/13/2019 9: 25 AM EDT Job Start Date Occupation Industry Not on file Not on file Not on file documented as of this encounter Functional Status Functional Status Response Date of Assess ment Are you deaf or do you have serious difficulty h earing? No 08/20/2017 Are you blind or do you have serious difficulty seeing, even when wearing glasses? No 08/20/2017 Do you have serious difficul ty walking or climbing stairs? (5 years old or older) No 08/20/2017 Do you have difficulty dress ing or bathing? (5 years old or older) No 08/20/2017 Because of a physical, menta l, or emotional condition, do you have difficulty doing errands alone such as visiting a doctor s office or shopping? (15 years old or older) No 08/21/19 18 Cognitive Status Response Date of Assessm ent Because of a physical, menta l, or emotional condition, do you have serious difficulty concentrating, remembering, or making decisions? (5 years old or older) No 08/20/2017 documented as of this encounter Miscellaneous Notes * Telephone Encounter - Edgardo Montenegro DO - 03/01/2024 2:53 PM EST Signed Prescriptions: Disp Refills OneTouch Verio In Vitro Strip (Glucose Blo*[address] St*3 Sig: Use to check glucose twice daily E11.9 Authorizing Provider: EDGARDO MONTENEGRO * Telephone Encounter - Sunshine Whitfield LPN - 03/01/2024 1:37 PM EST Pending Prescriptions: Disp Refills OneTouch Verio In Vitro Strip (Glucose Bl*[address] St*3 Sig: Use to check glucose twice daily E11.9 Last Visit: 02/23/2024 (in office), Visit date not found (telemedicine) Next Visit: 07/01/2024 Last date the medication was ordered: 07/28/2023. Patient Active Problem List Diagnosis ADVANCE DIRECTIVE INFORMATION Type 2 diabetes mellitus with hemoglobin A1c goal of less than 7.0% ([facility]) HTN, goal below 130/80 Dyslipidemia, goal LDL below 100 MDD (major depressive disorder), single episode, in partial remission (HCC) Bipolar 1 disorder (HCC) Rectal prolapse Tobacco use disorder Alcohol dependence in remission (HCC) Hepatitis C virus infection cured after antiviral drug therapy Ventricular premature depolarization Nondisplaced fracture of fifth metatarsal bone, left foot, initial encounter for closed fracture Age-related nuclear cataract, bilateral Hiatal hernia Major depressive disorder with single episode Medical marijuana use Other bipolar disorder (HCC) Type 2 diabetes mellitus with diabetic cataract (HCC) Type 2 diabetes mellitus without complication (HCC) Chronic bronchitis (HCC) Cellulitis of left lower limb Adjustment disorder with mixed anxiety and depressed mood Labs: Lab Results Component Value Date/Time CREATININE - [facility] 0.5 12/10/2023 11:45 AM CREATININE - [facility] 0.8 01/18/2020 01:18 PM CREATININE, RANDOM URINE - [facility] 28 12/10/2023 11:45 AM CREATININE, RANDOM URINE - [facility] 81 01/09/2016 10:54 AM Lab Results Component Value Date/Time POTASSIUM - [facility] 5.0 12/10/2023 11:45 AM POTASSIUM - [facility] 4.4 01/18/2020 01:18 PM Lab Results Component Value Date/Time TSH - [facility] 0.76 01/18/2020 01:18 PM Lab Results Component Value Date/Time LDL CHOLESTEROL (CALCULATED) - [facility] 85 12/10/2023 11:45 AM LDL CHOLESTEROL (CALCULATED) - [facility] 83 06/24/2023 02:13 PM LDL CHOLESTEROL (CALCULATED) - [facility] 72 01/18/2020 01:18 PM LDL CHOLESTEROL (CALCULATED) - [facility] 69 02/19/2012 12:30 PM LDL CHOLESTEROL (DIRECT MEASURE) - [facility] NOT APPLICABLE 01/18/2020 01:18 PM LDL CHOLESTEROL (DIRECT MEASURE) - [facility] 96 08/27/2016 09:33 AM LDL CHOLESTEROL (DIRECT MEASURE) - [facility] 98 01/09/2016 11:18 AM Lab Results Component Value Date/Time ALT - [facility] 16 12/10/2023 11:45 AM ALT - [facility] 20 01/18/2020 01:18 PM ALT LIVER FIB PANEL 34 (H) 04/02/2016 08:59 AM ALT-OUTSIDE LAB 49 01/17/2017 12:00 AM Hemoglobin AIC Results: Lab Results Component Value Date/Time HEMOGLOBIN A1C - [facility] 8.0 (H) 12/10/2023 11:45 AM HEMOGLOBIN A1C - [facility] 8.0 (H) 06/24/2023 02:13 PM HEMOGLOBIN A1C - [facility] 7.5 (H) 10/08/2022 04:43 PM HEMOGLOBIN A1C - [facility] 7.2 (H) 01/18/2020 01:18 PM HEMOGLOBIN A1C - [facility] 6.6 (H) 06/02/2018 02:45 PM HEMOGLOBIN A1C - [facility] 5.8 04/01/2017 11:45 AM documented in this encounter Plan of Treatment Upcoming Encounters Date Type Department Care Team (Late st Contact Info) Description 07/01/2024 10:00 AM EST Office Visit Family Practice [facility] [address] [place] [phone] Edgardo Montenegro, [address] [place] [phone] 07/06/2024 12:00 PM EDT Imaging Radiology [facility] [facility] [address] [place] [phone] Scheduled Procedures Name Priority Associated Diagnoses Date/Ti me COLONOSCOPY FLEXIBLE PROXIMA L DIAGNOSTIC Recall Encounter for screening colonoscopy Health Maintenance Due Date Last Done Comments DISCUSS TOBACCO CESSATION (REFER TO SMARTSET #6233) 1960 Cologuard 02/11/2004 Fecal Occult Blood Test 02/11/2004 Sigmoidoscopy 02/11/2004 *COPD SEVERITY VERIFIED BY PFT 06/26/2023 Influenza Vaccine (FLU shot) (#1) 2023 02/25/2022, 03/16/2021, 01/18/2020, Additional history exists DXA Scan 02/11/2024 Diabetic Eye Exam 03/07/2024 03/07/2023, , 03/07/2022, Additional history exists HbA1c 06/11/2024 12/10/2023, 05/30, 10/08/2022, Additional history exists Depression Monitoring 06/24/2024 06/24/2023 Diabetic Foot Exam 06/24/2024 06/24/2023, 0 09/13/2021, 07/13/2019, Additional history exists Mammogram 07/02/2024 07/03/2023, 10/2023, 03/19/2021, Additional history exists Albumin/Creatinine Ratio 12/09/2024 024, 06/24/2023, 05/23/2023, Additional history exists B-12 12/09/2024 12/10/2023, 05/30, 02/25/2022, Additional history exists GFR 12/09/2024 12/10/2023, 09/26, 02/25/2022, Additional history exists O2 ASSESSMENT COMPLETED IN PAST YEAR FOR COPD 02/22/2025 02/23/2024 Colonoscopy 07/16/2026 07/16/2016, 06/27, 07/02/2006, Additional history exists Colorectal Cancer Screening 07/16/2026 DTap/Tdap Vaccines (3 - Td or Tdap) 04/01/2027 04/01/2017, 08/05/2006 Lipid Panel 12/09/2028 12/10/2023, 05/30, 02/25/2022, Additional history exists Hepatitis B Vaccine Completed 09/23/2017, 07/30/2017, 05/12/2014, Additional history exists Zoster Vaccines Completed 09/29/2019, 07/13/2019 Cervical Cancer Screening Discontinued Pap Smear Discontinued 01/18/2020, 12/28, 08/27/2016, Additional history exists COVID-19 Vaccine Discontinued 03/16/2021, 08/25/2020 Pneumococcal Vaccine: 65+ Years Completed 09/13/2021, 08/05/2006 Lung Cancer Screening Completed 10/15/2023, 023 HPV (Gardasil) Vaccine Aged Out No lo nger eligible based on patient's age to complete this topic HPV/Co-Test Discontinued MENINGOCOCCAL (MENACTRA/MENVEO) Aged Out No longer eligible based on patient's age to complete this topic documented as of this encounter Medical Devices Not on filedocumented as of this encounter Visit Diagnoses Diagnosis DM type 2 nursing care encounter (HCC) Type II or unspecified type diabetes mellitus without mention of complication, not stated as uncontrolled documented in this encounter Advance Directives * Full Code (Latest Code Status on File) Date Activated Date Inactivated Comments 08/20/2017 7:50 PM 08/25/2017 4:39 PM Question Answer Comments Discussion of Advance Directives occurred with: Not Discussed * Full Code Date Activated Date Inactivated Comments 08/20/2017 10:18 AM 08/20/2017 7:50 PM Question Answer Comments Discussion of Advance Directives occurred with: Not Discussed Does the patient have a Living Will? No Does the patient have Health Care Power of Attor abi? No Care Teams Tower Foreman Relationship Specialty Start Date End Date Edgardo Montenegro DO [address] [place] [id number] PCP - General Family Medicine 07/13/19 documented as of this encounter
--- OUTSIDE RECORDS SUMMARY | 2024-04-05 03:13 | External Medical Summary | Summary of Care ---
Author Name Unknown Organization [facility] Address [address] [place] [address] Phone [phone] Care Team Providers Care Aquatic Ecologist Name Role Phone Basil Montenegro DO Primary Care Provider Encounter Details Date Type Department Care Team (Late st Contact Info) Description 03/10/2024 Orders Only Family Practice [facility] [address] [facility] [id number] Basil Montenegro DO [address] [facility] [place] [address] Allergies Active Allergy Reactions Criticality Noted Date Comments Percocet Rash 07/25/2006 documented as of this encounter (statuses as of 03/10/2024) Medications clobetasol propionate (TEMOVATE) 0.05 % ointmentIndicati ons:Dermatitis,D M type 2 nursing care encounter (HCC) Apply to affected areas of hands twice daily as needed for flares 60 g 2 7 Active Additional Information Patient not taking.Reported on 06/24/2023 Blood Glucose Monitoring Suppl (ONETOUCH VERIO) w/Device KITIndications:D M type 2 nursing care encounter (HCC) Use up to 4 times a day E11.9 1 Kit 7 Active ONETOUCH DELICA LANCETS FINE MISC Use twice a day 100 Each 11 9 Active Additional Information Patient not taking.Reported on 02/23/2024 lamoTRIgine (LAMICTAL) 25 MG Tablet Take 1 Tab by mouth 2 times a day. 180 Tab 3 9 Active Glucose Blood STRPIndications: DM type 2 nursing care encounter ([facility]) USE STRIP TO CHECK GLUCOSE TWICE DAILY 200 Strip 3 0 Active Additional Information Patient not taking.Reported on 02/23/2024 OneTouch Delica Lancets 33G : Use twice a day E11.9 200 Each 3 2 Active Additional Information Patient not taking.Reported on 02/23/2024 Omeprazole 20 MG Oral Capsule Delayed Release (PriLOSEC)Indica tions:Hiatal hernia,Acute gastritis, presence of bleeding unspecified, unspecified gastritis type TAKE 1 CAPSULE BY MOUTH ONCE DAILY TAKE ONE HOUR BEFORE THE FIRST MEAL OF THE DAY 90 Capsule 3 4 Active OneTouch UltraSoft LancetsIndicatio ns:DM type 2 nursing care encounter ([facility]) Check twice a day. E11.9 100 Each 3 4 Active Additional Information Patient not taking.Reported on 02/23/2024 Empagliflozin 10 MG Oral Tablet (Jardiance)Indic ations:Type 2 diabetes mellitus with hemoglobin A1c goal of less than 7.0% ([facility]) Take 1 Tablet by mouth in the morning. 90 Tablet 1 4 Active Rosuvastatin Calcium 5 MG Oral Tablet (Crestor) Take 1 Tablet by mouth in the morning. 90 Tablet 1 4 Active Metoprolol Succinate ER 50 MG Oral Tablet Extended Release 24 Hour (toPROL XL)Indications:H TN, goal below 130/80 Take 1 Tablet by mouth in the morning. 90 Tablet 1 4 Active Lisinopril 40 MG Oral Tablet Take 1/2 (one-half) tablet by mouth once daily 45 Tablet 1 4 Active Venlafaxine HCl ER 150 MG Oral Capsule Extended Release 24 Hour (Effexor XR)Indications:B ipolar 1 disorder (HCC) Take 1 Capsule by mouth in the morning. 90 Capsule 1 4 Active Venlafaxine HCl ER 75 MG Oral Capsule Extended Release 24 Hour (Effexor XR)Indications:B ipolar 1 disorder (HCC) Take 1 Capsule by mouth in the morning. 90 Capsule 1 4 Active amLODIPine Besylate 10 MG Oral Tablet (Norvasc) Take 1 Tablet by mouth in the morning. 90 Tablet 1 4 Active metFORMIN HCl ER 500 MG Oral Tablet Extended Release 24 Hour (Glucophage XR)Indications:T ype 2 diabetes mellitus with hemoglobin A1c goal of less than 7.0% ([facility]) Take 3 Tablets by mouth in the morning. 270 Tablet 1 4 Active OneTouch Verio In Vitro Strip (Glucose Blood)Indication s:DM type 2 nursing care encounter ([facility]) Use to check glucose twice daily E11.9 200 Strip 3 4 Active documented as of this encounter (statuses as of 03/10/2024) Active Problems Problem Noted Date Diagnosed Date [...] infection cured after antiviral drug therapy 03/10/2018 Overview (03/10/2018): HCV treated; SVR confirmed 03/04/2018 Alcohol dependence in remission 12/26/2017 Rectal prolapse 08/20/2017 Overview (12/26/2017): Surgery 2018 Tobacco use disorder 08/20/2017 Type 2 diabetes mellitus wit h hemoglobin A1c goal of less than 7.0% 02/23/2009 Overview (08/22/2015): Per Diabetes Taxonomy. ICD-10 update of inactive term HTN, goal below 130/80 Dyslipidemia, goal LDL below 100 MDD (major depressive disord er), single episode, in partial remission Bipolar 1 disorder documented as of this encounter (statuses as of 03/10/2024) Resolved Problems Problem Noted Date Diagnosed Date Resolved Date Bronchitis due to tobacco use 04/01/2017 12/26/2017 Chronic hepatitis C without hepatic coma 01/12/2016 03/10/2018 Overview (03/10/2018): HCV treated; SVR confirmed 03/04/2018 S/p treatment 2017 HTN, GOAL BELOW 140/80 12/16/201108/02 Overview: Per HTN Protocol #27. Dermatitis 06/29/2009 06/08/2015 Cellulitis of hand 06/22/2009 6 HTN, goal below 130/80 05/25/200912/18 Overview (05/25/2009): Per HTN Taxonomy. ADVANCE DIRECTIVE INFORMATION 08/05/2006 03/01/2024 Overview (08/05/2006): Information offered-patient declined. Type 2 diabetes mellitus wit h hemoglobin A1c goal of less than 7.0% 08/05/2006 02/23/2009 Overview (08/22/2015): Per Diabetes Taxonomy. ICD-10 update of inactive term HTN, goal below 140/90 08/05/200605/25 Overview (05/25/2009): Per HTN Taxonomy. Type 2 diabetes mellitus david ated without insulin 12/26/2017 documented as of this encounter (statuses as of 03/10/2024) Immunizations Name Administration Dates Next Due Covid-19 Ad26, Single Dose (Carol/J&J) 03/16/2021,08/25/2020 HEP A - Hepatitis A (Adult > 18 yrs) 09/23/2017 HepA Inact/HepB Recomb>=18yrs old 07/30/2017 Hepatitis B, 20+ yrs 09/23/2017,05/12/19 15,09/08/2013,05/24 Pneumococcal Conjugate Vacci ne, 20-valent ([id number]) 09/13/2021 Pneumococcal Polysaccharide PPV23 (Pneumovax) 08/05/2006 Seasonal [...] drinks a week PHQ-2 Answer Date Recorded PHQ Adult Total Score 9 06/24/2023 Hunger Vital Sign Answer Date Recorded Worried About Running Out of Food in the Last Ye ar Never true 07/13/2019 Ran Out of Food in the Last Year Never true 07/13/2019 Comments No Sex and Gender Information Value Date Recorded Sex Assigned at Female 07/13/2019 9:25 AM EDT Legal Sex Female 5:17 AM EST Gender Identity Female 07/13/2019 9:25 AM EDT Sexual Orientation Straight 07/13/2019 9: 25 AM EDT documented as of this encounter Functional Status * Are you deaf or do you have serious difficulty hearing? Answer Date of Assessment Author No 08/20/2017 9:42 PM EDT Cayden Osman LPN * Are you blind or do you have serious difficulty seeing, even when wearing glasses? Answer Date of Assessment Author No 08/20/2017 9:42 PM EDT Cayden Osman LPN * Do you have serious difficulty walking or climbing stairs? (5 years old or older) Answer Date of Assessment Author No 08/20/2017 9:42 PM EDT Cayden Osman LPN * Do you have difficulty dressing or bathing? (5 years old or older) Answer Date of Assessment Author No 08/20/2017 9:42 PM EDT Cayden Osman LPN * Because of a physical, mental, or emotional condition, do you have difficulty doing errands alone such as visiting a doctors office or shopping? (15 years old or older) Answer Date of Assessment Author No 08/20/2017 9:42 PM EDT Cayden Osman LPN documented as of this encounter Mental Status * Because of a physical, mental, or emotional condition, do you have serious difficulty concentrating, remembering, or making decisions? (5 years old or older) Answer Entry Date Author No 08/20/2017 9:42 PM EDT Cayden Osman LPN documented in this encounter Plan of Treatment Upcoming Encounters Date Type Department Care Team (Late st Contact Info) Description 07/01/2024 10:00 AM EST Office Visit Family Practice [facility] [address] [place] [phone] Basil Montenegro, [address] [place] [phone] 07/06/2024 12:00 PM EDT Imaging Radiology [address] [facility] [place] [phone] Scheduled Procedures Name Priority Associated Diagnoses Date/Ti me COLONOSCOPY FLEXIBLE PROXIMA L DIAGNOSTIC Recall Encounter for screening colonoscopy Health Maintenance Due Date Last Done Comments DISCUSS TOBACCO CESSATION (REFER TO SMARTSET #1762) 1960 Cologuard 02/11/2004 Fecal Occult Blood Test 02/11/2004 Sigmoidoscopy 02/11/2004 *COPD SEVERITY VERIFIED BY PFT 06/26/2023 Influenza Vaccine (FLU shot) (#1) 2023 02/25/2022, 03/16/2021, 01/18/2020, Additional history exists DXA Scan 02/11/2024 HbA1c 06/11/2024 12/10/2023, 05/30, 10/08/2022, Additional history [...] IN PAST YEAR FOR COPD 02/22/2025 02/23/2024 Diabetic Eye Exam 03/10/2025 03/09/2024, , 03/07/2023, Additional history exists Colonoscopy 07/16/2026 07/16/2016, 06/27, 07/02/2006, Additional history [...] Not on filedocumented as of this encounter Procedures Procedure Name Priority Date/Time Associated Diagnosis Comments DIABETIC EYE EXAM Routine 03/09/2024 documented in this encounter Results * DIABETIC EYE EXAM (03/09/2024) 03/09/2024 us History Per Patient OTHER Final Result OUTSIDE LAB (SEE SCANNED REPORT) documented in this encounter Advance Directives * [...] Power of Attor abi? No Care Teams Aquatic Ecologist Relationship Specialty Start Date End Date Basil Montenegro DO [address] [place] [id number] PCP - General Family Medicine 07/13/19 documented as of this encounter
--- OUTSIDE RECORDS SUMMARY | 2024-04-05 03:13 | External Medical Summary | Summary of Care ---
Author Name Unknown Organization [facility] Address [address] [place] [address] Phone [phone] Care Team Providers Care Manager Long Term Care Name Role Phone Edgardo Montenegro DO Primary Care Provider Reason for Visit * Reason Comments eRx-Medication Refill Encounter Details Date Type Department Care Team ([facility] st Contact Info) Description 03/16/2024 Refill Family Practice [facility] [address] [place] [id number] Edgardo Montenegro DO [address] [facility] [id number] Type 2 diabetes mellitus with hemoglobin A1c goal of less than 7.0% ([facility]) Allergies Active Allergy Reactions Criticality Noted Date Comments Percocet Rash 07/25/2006 documented as of this encounter (statuses as of 03/16/2024) Medications clobetasol propionate (TEMOVATE) 0.05 % ointmentIndicat ions:Dermatitis ,DM type 2 nursing care encounter (HCC) Apply to affected areas of hands twice daily as needed for flares 60 g 2 04/01/20 17 Active Additional Information Patient not taking.Reported on 06/24/2023 Blood Glucose Monitoring Suppl (ONETOUCH VERIO) w/Device KITIndications: DM type 2 nursing care encounter (HCC) Use up to 4 times a day E11.9 1 Kit 04/01/20 17 Active ONETOUCH DELICA LANCETS FINE MISC Use twice a day 100 Each 11 06/02/19 19 Active Additional Information Patient not taking.Reported on 02/23/2024 lamoTRIgine (LAMICTAL) 25 MG Tablet Take 1 Tab by mouth 2 times a day. 180 Tab 3 09/18/19 19 Active Glucose Blood STRPIndications :DM type 2 nursing care encounter ([facility]) USE STRIP TO CHECK GLUCOSE TWICE DAILY 200 Strip 3 06/24/19 20 Active Additional Information Patient not taking.Reported on 02/23/2024 OneTouch Delica Lancets 33G : Use twice a day E11.9 200 Each 3 05/31/19 22 Active Additional Information Patient not taking.Reported on 02/23/2024 Omeprazole 20 MG Oral Capsule Delayed Release (PriLOSEC)Indic ations:Hiatal hernia,Acute gastritis, presence of bleeding unspecified, unspecified gastritis type TAKE 1 CAPSULE BY MOUTH ONCE DAILY TAKE ONE HOUR BEFORE THE FIRST MEAL OF THE DAY 90 Capsule 3 07/11/19 24 Active OneTouch UltraSoft LancetsIndicati ons:DM type 2 nursing care encounter ([facility]) Check twice a day. E11.9 100 Each 3 07/28/19 24 Active Additional Information Patient not taking.Reported on 02/23/2024 Rosuvastatin Calcium 5 MG Oral Tablet (Crestor) Take 1 Tablet by mouth in the morning. 90 Tablet 11/06/19 24 Active Metoprolol Succinate ER 50 MG Oral Tablet Extended Release 24 Hour (toPROL XL)Indications: HTN, goal below 130/80 Take 1 Tablet by mouth in the morning. 90 Tablet 11/06/19 24 Active Lisinopril 40 MG Oral Tablet Take 1/2 (one-half) tablet by mouth once daily 45 Tablet 11/06/19 24 Active Venlafaxine HCl ER 150 MG Oral Capsule Extended Release 24 Hour (Effexor XR)Indications: Bipolar 1 disorder (HCC) Take 1 Capsule by mouth in the morning. 90 Capsule 11/06/19 24 Active Venlafaxine HCl ER 75 MG Oral Capsule Extended Release 24 Hour (Effexor XR)Indications: Bipolar 1 disorder (HCC) Take 1 Capsule by mouth in the morning. 90 Capsule 11/06/19 24 Active amLODIPine Besylate 10 MG Oral Tablet (Norvasc) Take 1 Tablet by mouth in the morning. 90 Tablet 11/06/19 24 Active metFORMIN HCl ER 500 MG Oral Tablet Extended Release 24 Hour (Glucophage XR)Indications: Type 2 diabetes mellitus with hemoglobin A1c goal of less than 7.0% (HCC) Take 3 Tablets by mouth in the morning. 270 Tablet 1 12/25/19 24 Active OneTouch Verio In Vitro Strip (Glucose Blood)Indicatio ns:DM type 2 nursing care encounter (HCC) Use to check glucose twice daily E11.9 200 Strip 3 03/01/20 24 Active Jardiance 10 MG Oral Tablet (Empagliflozin) Indications:Typ e 2 diabetes mellitus with hemoglobin A1c goal of less than 7.0% ([facility]) TAKE 1 TABLET BY MOUTH IN THE MORNING 90 Tablet 03/16/20 24 Active Empagliflozin 10 MG Oral Tablet (Jardiance)Sariah cations:Type 2 diabetes mellitus with hemoglobin A1c goal of less than 7.0% ([facility]) Take 1 Tablet by mouth in the morning. 90 Tablet 1 09/19/19 24 024 Discontinued documented as of this encounter (statuses as of 03/16/2024) Active Problems Problem Noted Date Diagnosed Date [...] as of this encounter (statuses as of 03/16/2024) Resolved Problems Problem Noted Date Diagnosed Date [...] as of this encounter (statuses as of 03/16/2024) Immunizations Name Administration Dates Next Due Covid-19 Ad26, Single Dose (Carol/J&J) 03/16/2021,08/25/2020 HEP A - Hepatitis A (Adult > 18 yrs) 09/23/2017 HepA Inact/HepB Recomb>=18yrs old 07/30/2017 Hepatitis B, 20+ yrs 09/23/2017,05/12/19 15,09/08/2013,05/24 Pneumococcal Conjugate Vacci ne, 20-valent ([id number]) 09/13/2021 Pneumococcal Polysaccharide PPV23 (Pneumovax) 08/05/2006 Seasonal [...] Author No 08/20/2017 9:42 PM EDT Cayden Osman, JUAN * Are you blind or do you have serious difficulty seeing, even when wearing glasses? Answer Date of Assessment Author No 08/20/2017 9:42 PM Cayden Hannah LPN * Do you have serious difficulty walking or climbing stairs? (5 years old or older) Answer Date of Assessment Author No 08/20/2017 9:42 PM EDCayden Ignacio LPN * Do you have difficulty dressing or bathing? (5 years old or older) Answer Date of Assessment Author No 08/20/2017 9:42 PM EDCayden Ignacio LPN * Because of a physical, mental, or emotional condition, do you have difficulty doing errands alone such as visiting a doctors office or shopping? (15 years old or older) Answer Date of Assessment Author No 08/20/2017 9:42 PM Cayden Hannah LPN documented as of this encounter Mental Status * Because of a physical, mental, or emotional condition, do you have serious difficulty concentrating, remembering, or making decisions? (5 years old or older) Answer Entry Date Author No 08/20/2017 9:42 PM Cayden Hannah LPN documented in this encounter Miscellaneous Notes * Telephone Encounter - Sarahi Vergara [facility] - 03/16/2024 8:16 PM EST Signed Prescriptions: Disp Refills Jardiance 10 MG Oral Tablet (Empagliflozin)90 Tab*0 Sig: TAKE 1 TABLET BY MOUTH IN THE MORNINGAuthorizing Provider: EDGARDO MONTENEGROOrdercarley User: SARAHI VERGARA documented in this encounter Plan of Treatment Upcoming Encounters Date Type Department Care Team (Late st Contact Info) Description 07/01/2024 10:00 AM EST Office Visit Family [facility] [address] [facility] [place] [phone] Edgardo Montenegro, DO [address] [place] [phone] 07/06/2024 12:00 PM EDT Imaging Radiology [address] [place] [phone] Scheduled Procedures Name Priority Associated Diagnoses Date/Ti me COLONOSCOPY FLEXIBLE PROXIMA L DIAGNOSTIC Recall Encounter for screening colonoscopy Health Maintenance Due Date Last Done Comments DISCUSS TOBACCO CESSATION (REFER TO SMARTSET #4231) 1960 Cologuard 02/11/2004 Fecal Occult Blood Test 02/11/2004 Sigmoidoscopy 02/11/2004 *COPD SEVERITY VERIFIED BY PFT 06/26/2023 Influenza Vaccine (FLU shot) (#1) 2023 02/25/2022, 03/16/2021, 01/18/2020, Additional history exists DXA Scan 02/11/2024 HbA1c 06/11/2024 12/10/2023, 05/30, 10/08/2022, Additional history exists Depression Monitoring 06/24/2024 06/24/2023 Diabetic Foot Exam 06/24/2024 06/24/2023, 0 09/13/2021, 07/13/2019, Additional history exists Mammogram 07/02/2024 07/03/2023, 0310/2023, 03/19/2021, Additional history exists Albumin/Creatinine Ratio 12/09/2024 024, 06/24/2023, 05/23/2023, Additional history exists B-12 12/09/2024 12/10/2023, 05/30, 02/25/2022, Additional history exists GFR 12/09/2024 12/10/2023, 09/26, 02/25/2022, Additional history exists O2 ASSESSMENT COMPLETED IN PAST YEAR FOR COPD 02/22/2025 02/23/2024 Diabetic Eye Exam 03/09/2025 03/09/2024, , 03/07/2023, Additional history exists Colonoscopy [...] as of this encounter Visit Diagnoses Diagnosis Type 2 diabetes mellitus with hemoglobin A1c goal of less than 7.0% (HCC) documented in this encounter Advance Directives * [...] Power of Attor abi? No Care Teams Manager Long Term Care Relationship Specialty Start Date End Date Edgardo Montenegro DO [address] [place] [id number] PCP - General Family Medicine 07/13/19 documented as of this encounter
--- OUTSIDE RECORDS SUMMARY | 2024-04-05 03:14 | External Medical Summary ---
Author Name Unknown Address Unknown Organization [id number]:[facility] - [address] [place] [address] Laboratory Report Ordering Provider Test Date Status KARLEY REYNOSO 12/10/2023 11:45:04 Final Normal: <30 mg/g creatinine< br/>High: 30-300 mg/g creatinine
Very High: >300 mg/g creatinine
Nephrotic: >2200 mg/g creatinine Observation Date Value Abnormality Reference (Units) Status Albumin, Urine 12/10/2023 11:45:04 <1.20 (mg/dL) Final Creatinine, Urine 12/10/2023 11:45:04 28 (mg/dL) Final ALBUMIN/CREATININE RATIO, HIDE 12/10/2023 11:45:04 Uninterpretable Albumin/Creatinine ratio due to very low albumin and creatinine values. <30 (mg/g Creat) Final Performing Location [facility] - [address] [place] [address]
--- OUTSIDE RECORDS SUMMARY | 2024-04-05 03:14 | External Medical Summary | Summary of Care ---
Author Name Unknown Organization [facility] Address [address] [place] [address] Phone [phone] Care Team Providers Care Carbon Grinder Name Role Phone Lan Basil Riojas DO Primary Care Provider Reason for Visit * Reason Comments Outpatient Testing Encounter Details Date Type Department Care Team (Late st Contact Info) Description 12/10/2023 11:10 AM EDT Laboratory Laboratory, [facility] [address] [place] [address] [facility] [address] [place] [address] Type 2 diabetes mellitus with diabetic cataract, unspecified whether investigator internal affairs insulin use (HCC); Dyslipidemia, goal LDL below 100; B12 deficiency Allergies Active Allergy Reactions Criticality Noted Date Comments Percocet Rash 07/25/2006 documented as of this encounter (statuses as of 12/10/2023) Medications Medication Sig Dispensed Refills Start Date End Date Status clobetasol propionate (TEMOVATE) 0.05 % ointmentIndications :Dermatitis,DM type 2 nursing care encounter (HCC) Apply [...] a day 100 Each 11 06/02/2018 Active lamoTRIgine (LAMICTAL) 25 MG Tablet Take 1 Tab by mouth 2 times a day. 180 Tab 3 09/17/2018 Active Additional Information Patient taking differently:25 mg OralDaily(AM), Reported on 11/18/2023 Glucose Blood STRPIndications:DM type 2 nursing care encounter (HCC) USE STRIP TO CHECK GLUCOSE TWICE DAILY 200 Strip 3 06/24/2019 Active Diclofenac Sodium 75 MG Oral Tablet Delayed Release (Voltaren)Indicatio ns:Lateral meniscus tear Take 1 Tab by mouth 2 times a day. With food. 60 Tab 11 08/16/2020 Active Additional Information Patient not taking.Reported on 11/18/2023 OneTouch Delica Lancets 33G : Use twice a day E11.9 200 Each 3 05/31/2021 Active Albuterol Sulfate HFA 108 (90 Base) MCG/ACT Inhalation Aerosol SolutionIndications :Chronic bronchitis, unspecified chronic bronchitis type (HCC) Inhale 2 Puffs by mouth every 6 hours as needed for Cough, Shortness of Breath or Wheezing. 18 g 2 10/08/2022 Active Additional Information Patient not taking.Reported on 06/24/2023 Fluticasone-Salmete rol 250-50 MCG/ACT Inhalation Aerosol Powder Breath Activated (Advair Diskus)Indications: Chronic bronchitis, unspecified chronic bronchitis type (HCC) Inhale 1 Puff by mouth in the morning and 1 Puff before bedtime. 60 Each 5 10/08/2022 Active Additional Information Patient not taking.Reported on 06/24/2023 Ventolin HFA 108 (90 Base) MCG/ACT Inhalation Aerosol Solution Inhale 2 Puffs by mouth every 6 hours as needed for Wheezing, Dyspnea or Cough. 18 g 01/01/2023 Active Additional Information Patient not taking.Reported on 06/24/2023 Penicillin V Potassium 500 MG Oral Tablet (Veetids) Take 1 Tablet by mouth in the morning and 1 Tablet at noon and 1 Tablet in the evening and 1 Tablet before bedtime. 1 tab every 6 hours for 10 days for tooth infection.. 06/15/2023 Active traMADol HCl 50 MG Oral Tablet (Ultram) Take 1 Tablet by mouth. 06/15/2023 Active Omeprazole 20 MG Oral Capsule Delayed Release (PriLOSEC)Indicatio ns:Hiatal hernia,Acute gastritis, presence of bleeding unspecified, unspecified gastritis type TAKE 1 CAPSULE BY MOUTH ONCE DAILY TAKE ONE HOUR BEFORE THE FIRST MEAL OF THE DAY 90 Capsule 3 07/11/2023 Active OneTouch UltraSoft LancetsIndications: DM type 2 nursing care encounter ([facility]) Check twice a day. E11.9 100 Each 3 07/28/2023 Active OneTouch Verio In Vitro Strip (Glucose Blood)Indications:D M type 2 nursing care encounter ([facility]) Use to check glucose twice daily E11.9 200 Strip 3 07/28/2023 Active Empagliflozin 10 MG Oral Tablet (Jardiance)Indicati ons:Type 2 diabetes mellitus with hemoglobin A1c goal of less than 7.0% ([facility]) Take 1 Tablet by mouth in the morning. 90 Tablet 1 09/19/2023 Active Rosuvastatin Calcium 5 MG Oral Tablet (Crestor) Take 1 Tablet by mouth in the morning. 90 Tablet 1 11/06/2023 Active Metoprolol Succinate ER 50 MG Oral Tablet Extended Release 24 Hour (toPROL XL)Indications:HTN, goal below 130/80 Take 1 Tablet by mouth in the morning. 90 Tablet 1 11/06/2023 Active metFORMIN HCl ER 500 MG Oral Tablet Extended Release 24 Hour (Glucophage XR)Indications:Type 2 diabetes mellitus with hemoglobin A1c goal of less than 7.0% ([facility]) Take 2 Tablets by mouth in the morning. 180 Tablet 11/06/2023 Active Lisinopril 40 MG Oral Tablet Take 1/2 (one-half) tablet by mouth once daily 45 Tablet 11/06/2023 Active Venlafaxine HCl ER 150 MG Oral Capsule Extended Release 24 Hour (Effexor XR)Indications:Bipo lar 1 disorder (HCC) Take 1 Capsule by mouth in the morning. 90 Capsule 1 11/06/2023 Active Venlafaxine HCl ER 75 MG Oral Capsule Extended Release 24 Hour (Effexor XR)Indications:Bipo lar 1 disorder (HCC) Take 1 Capsule by mouth in the morning. 90 Capsule 11/06/2023 Active amLODIPine Besylate 10 MG Oral Tablet (Norvasc) Take 1 Tablet by mouth in the morning. 90 Tablet 11/06/2023 Active documented as of this encounter (statuses as of 12/10/2023) Active Problems Problem Noted Date Diagnosed Date [...] as of this encounter (statuses as of 12/10/2023) Resolved Problems Problem Noted Date Diagnosed Date [...] as of this encounter (statuses as of 12/10/2023) Immunizations Name Administration Dates Next Due Covid-19 Ad26, Single Dose (Carol/J&J) 03/16/2021,08/25/2020 HEP A - Hepatitis A (Adult > 18 yrs) 09/23/2017 HepA Inact/HepB Recomb>=18yrs old 07/30/2017 Hepatitis B, 20+ yrs 09/23/2017,05/12/19 15,09/08/2013,05/24 Pneumococcal Conjugate Vacci ne, 20-valent ([id number]) 09/13/2021 Pneumococcal Polysaccharide PPV23 (Pneumovax) 08/05/2006 Seasonal Influenza, PF, 6 M & above, IM , (FluLaval or Fluzone) 02/25/2022,03/16/2021,01/18/2020,01/05,06/16/2018,04/01/2017 Seasonal Influenza, Quadriva lent, No Preserve, IM 01/09/2016,04/06/2015 Seasonal Influenza, Split, I IV3, With Preserve, Inj 05/12/2014,05/24/2013,02/19/2012,02/08,04/05/2010,02/02/2008,02/24/2007 TDAP (age 10 and older)(Boostrix) 04/01/2017 TDAP, [...] No 08/20/2017 documented as of this encounter Plan of Treatment Upcoming Encounters Date Type Department Care Team (Late st Contact Info) Description 12/25/2023 1:00 PM EDT Office Visit [facility] [address] [phone] Mihaela Henriquez CRNP [address] [id number] 07/01/2024 10:00 AM EST Office Visit [facility] [address] [address] Basil Montenegro, DO [address] [place] [phone] 07/06/2024 12:00 PM EDT Imaging Radiology [address], [place] [address] [place] [phone] Pending Results Name Type Priority Associated Diagnoses Date /Time COMPREHENSIVE METABOLIC PANEL Lab Routine Type 2 diabetes mellitus with diabetic cataract, unspecified whether fdc insulin use (HCC) Dyslipidemia, goal LDL below 100 12/10/2023 11:45 AM EDT HEMOGLOBIN A1C Lab Routine Type 2 diabetes mellitus with diabetic cataract, unspecified whether investigator internal affairs insulin use (HCC) 12/10/2023 11:45 AM EDT ALBUMIN / CREATININE RATIO, URINE Lab Routine Type 2 diabetes mellitus with diabetic cataract, unspecified whether fdc insulin use (HCC) 12/10/2023 11:45 AM EDT LIPID PANEL WITH DIRECT LDL IF TG IS HIGH Lab Routine Type 2 diabetes mellitus with diabetic cataract, unspecified whether investigator internal affairs insulin use (HCC) Dyslipidemia, goal LDL below 100 12/10/2023 11:45 AM EDT VITAMIN B12 Lab Routine B12 deficiency 12/10/2023 11:45 AM EDT Scheduled Procedures Name Priority Associated Diagnoses Date/Ti me COLONOSCOPY FLEXIBLE PROXIMA L DIAGNOSTIC Recall Encounter for screening colonoscopy Health Maintenance Due Date Last Done Comments DISCUSS TOBACCO CESSATION (REFER TO SMARTSET #[id number]) 1959 HPV/Co-Test 1989 Cologuard 02/11/2004 Fecal Occult Blood Test 02/11/2004 Sigmoidoscopy 02/11/2004 COVID-19 Vaccine ( season) 2022 03/16/2021, 08/25/2020 Cervical Cancer Screening 01/17/2023 Pap Smear 01/17/2023 01/18/2020, 12/28, 08/27/2016, Additional history exists *COPD SEVERITY VERIFIED BY PFT 06/26/2023 GFR 10/09/2023 10/08/2022, 01/28, 09/06/2021, Additional history exists HbA1c 12/23/2023 06/24/2023, 09/26, 02/25/2022, Additional history exists Influenza Vaccine (FLU shot) (#1) 2023 02/25/2022, 03/16/2021, 01/18/2020, Additional history exists Diabetic Eye Exam 03/07/2024 03/07/2023, , 09/11/2020, Additional history exists Albumin/Creatinine Ratio 06/24/2024 024, 05/23/2023, 02/25/2022, Additional history exists B-12 06/24/2024 06/24/2023, 01/28, 03/16/2021, Additional history exists Depression Monitoring 06/24/2024 06/24/2023 Diabetic Foot Exam 06/24/2024 06/24/2023, 0 09/13/2021, 07/13/2019, Additional history exists O2 ASSESSMENT COMPLETED IN PAST YEAR FOR COPD 06/24/2024 06/24/2023 Mammogram 07/02/2024 07/03/2023, 02/27, 01/18/2020, Additional history exists Colonoscopy 07/16/2026 07/16/2016, 06/27, 07/02/2006, Additional history exists Colorectal Cancer Screening 07/16/2026 DTaP,Tdap,and Td Vaccines (3 - Td or Tdap) 04/01/2027 04/01/2017, 08/05/2006 Lipid Panel 06/24/2028 06/24/2023, 01/28, 09/06/2021, Additional history exists Hepatitis B Vaccine Completed 09/23/2017, 07/30/2017, 05/12/2014, Additional history exists Zoster Vaccines Completed 09/29/2019, 07/13/2019 Pneumococcal Vaccine: Pediatrics (0 to 5 Years) and At-Risk Patients (6 to 64 Years) Completed 09/13/2021, 08/05/2006 Lung Cancer Screening Completed 10/15/2023, 023 HPV (Gardasil) Vaccine Aged Out No lo nger eligible based on patient's age to complete this topic MENINGOCOCCAL (MENACTRA/MENVEO) Aged Out No longer eligible based on patient's age to complete this topic documented as of this encounter Medical Devices Not on filedocumented as of this encounter Visit Diagnoses Diagnosis Type 2 diabetes mellitus with diabetic cataract, unspecified whether fdc insulin use (HCC) Dyslipidemia, goal LDL below 100 Other and unspecified hyperlipidemia B12 deficiency Other B-complex deficiencies documented in this encounter Advance Directives * [...] Power of Attor abi? No Care Teams Carbon Grinder Relationship Specialty Start Date End Date Basil Montenegro DO [address] [place] [phone] PCP - General Family Medicine 07/13/19 documented as of this encounter
--- OUTSIDE RECORDS SUMMARY | 2024-04-05 03:14 | External Medical Summary | Summary of Care ---
Author Name Unknown Organization [facility] Address [address] [place] [address] Phone [phone] Care Team Providers Care Interrelated Special Education Teacher Name Role Phone Basil Montenegro DO Primary Care Provider Reason for Referral * Medication Prior Authorization - Closed Specialty Diagnoses / Procedures Referred By Varinder blanchard Referred To Contact Diagnoses Ceruminosis, left Mihaela Henriquez CRNP [address] [facility] [place] [address] Referral ID Status Reason Start Date Expiration Date Visits Re quested Visits Authorized [id number] Closed 999 999 Reason for Visit * Reason Comments Re-Check 6 month xiomara Encounter Details Date Type Department Care Team ([facility] st Contact Info) Description 12/25/2023 1:00 PM EDT Office Visit Family [facility] [address] [place] [id number] Mihaela Henriquez CRNP [address] [place] [place] [id number] Encounter for long-term (current) use of medications*; Alcohol dependence in remission (HCC); Type 2 diabetes mellitus with hemoglobin A1c goal of less than 7.0% (HCC); Ceruminosis, left; Dyslipidemia, goal LDL below 100; HTN, goal below 130/80; MDD (major depressive disorder), single episode, in partial remission (HCC); Bipolar 1 disorder (HCC); Tobacco use disorder; Medical marijuana use Allergies Active Allergy Reactions Criticality Noted Date Comments Percocet Rash 07/25/2006 documented as of this encounter (statuses as of 12/25/2023) Medications Medication Sig Dispensed Refills Start Date End Date Status clobetasol propionate (TEMOVATE) 0.05 % ointmentIndicati ons:Dermatitis,D M type 2 nursing care encounter (HCC) Apply to affected areas of hands twice daily as needed for flares 60 g 2 7 Active Additional Information Patient not taking.Reported on 06/24/2023 Blood Glucose Monitoring Suppl (MathZee VERIO) w/Device KITIndications:D M type 2 nursing care encounter (HCC) Use up to 4 times a day E11.9 1 Kit 7 Active ONETOUCH DELICA LANCETS FINE MISC Use twice a day 100 Each 11 9 Active lamoTRIgine (LAMICTAL) 25 MG Tablet Take 1 Tab by mouth 2 times a day. 180 Tab 3 9 Active Additional Information Patient not taking.Reported on 12/25/2023 Glucose Blood STRPIndications: DM type 2 nursing care encounter (HCC) USE STRIP TO CHECK GLUCOSE TWICE DAILY 200 Strip 3 0 Active Diclofenac Sodium 75 MG Oral Tablet Delayed Release (Voltaren)Indica tions:Lateral meniscus tear Take 1 Tab by mouth 2 times a day. With food. 60 Tab 11 1 Active Additional Information Patient not taking.Reported on 11/18/2023 OneTouch Delica Lancets 33G : Use twice a day E11.9 200 Each 3 2 Active Albuterol Sulfate HFA 108 (90 Base) MCG/ACT Inhalation Aerosol SolutionIndicati ons:Chronic bronchitis, unspecified chronic bronchitis type (HCC) Inhale 2 Puffs by mouth every 6 hours as needed for Cough, Shortness of Breath or Wheezing. 18 g 2 3 Active Additional Information Patient not taking.Reported on 06/24/2023 Ventolin HFA 108 (90 Base) MCG/ACT Inhalation Aerosol Solution Inhale 2 Puffs by mouth every 6 hours as needed for Wheezing, Dyspnea or Cough. 18 g 3 Active Additional Information Patient not taking.Reported on 06/24/2023 Omeprazole 20 MG Oral Capsule Delayed Release (PriLOSEC)Indica tions:Hiatal hernia,Acute gastritis, presence of bleeding unspecified, unspecified gastritis type TAKE 1 CAPSULE BY MOUTH ONCE DAILY TAKE ONE HOUR BEFORE THE FIRST MEAL OF THE DAY 90 Capsule 3 4 Active OneTouch UltraSoft LancetsIndicatio ns:DM type 2 nursing care encounter ([facility]) Check twice a day. E11.9 100 Each 3 4 Active OneTouch Verio In Vitro Strip (Glucose Blood)Indication s:DM type 2 nursing care encounter ([facility]) Use to check glucose twice daily E11.9 200 Strip 3 4 Active Empagliflozin 10 MG Oral Tablet (Jardiance)Indic ations:Type 2 diabetes mellitus with hemoglobin A1c goal of less than 7.0% ([facility]) Take 1 Tablet by mouth in the [...] A1c goal of less than 7.0% ([facility]) Take 3 Tablets by mouth in the morning. 270 Tablet 1 4 Active Debrox 6.5 % Otic Solution (Carbamide Peroxide)Indicat ions:Ceruminosis , left Administer 5 Drops into the left ear once for 1 dose. Fill ear canal and insert cotton plug. Remove plug after 15 to 30 minutes. 15 mL 4 12/25/19 24 Active Fluticasone-Salm eterol 250-50 MCG/ACT Inhalation Aerosol Powder Breath Activated (Advair Diskus)Indicatio ns:Chronic bronchitis, unspecified chronic bronchitis type (HCC) Inhale 1 Puff by mouth in the morning and 1 Puff before bedtime. 60 Each 5 3 12/25/19 24 Discontinued Penicillin V Potassium 500 MG Oral Tablet (Veetids) Take 1 Tablet by mouth in the morning and 1 Tablet at noon and 1 Tablet in the evening and 1 Tablet before bedtime. 1 tab every 6 hours for 10 days for tooth infection.. 4 12/25/19 24 Discontinued(Med ication List Clean Up) traMADol HCl 50 MG Oral Tablet (Ultram) Take 1 Tablet by mouth. 4 12/25/19 24 Discontinued metFORMIN HCl ER 500 MG Oral Tablet Extended Release 24 Hour (Glucophage XR)Indications:T ype 2 diabetes mellitus with hemoglobin A1c goal of less than 7.0% (HCC) Take 2 Tablets by mouth in the morning. 180 Tablet 1 4 12/25/19 24 Discontinued documented as of this encounter (statuses as of 12/25/2023) Active Problems Problem Noted Date Diagnosed Date [...] as of this encounter (statuses as of 12/25/2023) Resolved Problems Problem Noted Date Diagnosed Date [...] as of this encounter (statuses as of 12/25/2023) Immunizations Name Administration Dates Next Due Covid-19 Ad26, Single Dose (Carol/J&J) 03/16/2021,08/25/2020 HEP A - Hepatitis A (Adult > 18 yrs) 09/23/2017 HepA Inact/HepB Recomb>=18yrs old 07/30/2017 Hepatitis B, 20+ yrs 09/23/2017,05/12/19 15,09/08/2013,05/24 Pneumococcal Conjugate Vacci ne, 20-valent ([id number]) 09/13/2021 Pneumococcal Polysaccharide PPV23 (Pneumovax) 08/05/2006 Seasonal Influenza, PF, 6 M & above, IM , (FluLaval or Fluzone) 02/25/2022,03/16/2021,01/18/2020,01/05,06/16/2018,04/01/2017 Seasonal Influenza, Quadriva lent, No Preserve, IM 01/09/2016,04/06/2015 Seasonal Influenza, Trivalen t, (IIV3), with Preserv, (Fluzone) 05/12/2014,05/24/2013,02/19/2012,02/08,04/05/2010,02/02/2008,02/24/2007 TDAP (age 10 and older)(Boostrix) 04/01/2017 [...] on file documented as of this encounter Last Filed Vital Signs Vital Sign Reading Time Taken Comments Blood Pressure 112/82 12/25/2023 1:01 PM EDT Pulse 87 12/25/2023 1:01 PM EDT Temperature 36.6 C (97.8 F) 12/25/2023 1:01 PM ED T Respiratory Rate - - Oxygen Saturation 95% 12/25/2023 1:01 PM EDT Inhaled Oxygen Concentration - - Weight 70.1 kg (154 lb 8 oz) 12/25/2023 1:01 PM EDT Height 157.5 cm (5' 2") 12/25/2023 1:01 PM EDT Body Mass Index 28.26 12/25/2023 1:01 PM EDT documented in this encounter Functional Status Functional Status Response [...] No 08/20/2017 documented as of this encounter Progress Notes * Mihaela Henriquez CRNP - 12/25/2023 1:17 PM EDT Images from the original note were not included. 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 Fill ear canal and insert cotton plug. Remove plug after 15 to 30 minutes. 15 mL 0 metFORMIN HCl ER 500 MG Oral Tablet Extended Release 24 Hour (Glucophage XR) Take 3 Tablets by mouth in the morning. 270 Tablet 1 amLODIPine Besylate 10 MG Oral Tablet (Norvasc) Take 1 Tablet by mouth in the morning. 90 Tablet 1 Lisinopril 40 MG Oral Tablet Take 1/2 (one-half) tablet by mouth once daily 45 Tablet 1 Metoprolol Succinate ER 50 MG Oral Tablet Extended Release 24 Hour (toPROL XL) Take 1 Tablet by mouth in the morning. 90 Tablet 1 Rosuvastatin Calcium 5 MG Oral Tablet (Crestor) Take 1 Tablet by mouth in the morning. 90 Tablet 1 Venlafaxine HCl ER 150 MG Oral Capsule Extended Release 24 Hour (Effexor XR) Take 1 Capsule by mouth in the morning. 90 Capsule 1 Venlafaxine HCl ER 75 MG Oral Capsule Extended Release 24 Hour (Effexor XR) Take 1 Capsule by mouthin the morning. 90 Capsule 1 Empagliflozin 10 MG Oral Tablet (Jardiance) Take 1 Tablet by mouth in the morning. 90 Tablet 1 OneTouch UltraSoft Lancets Check twice a day. E11.9 100 Each 3 OneTouch Verio In Vitro Strip (Glucose Blood) Use to check glucose twice daily E11.9 200 Strip 3 Omeprazole 20 MG Oral Capsule Delayed Release (PriLOSEC) TAKE 1 CAPSULE BY MOUTH ONCE DAILY TAKE ONE HOUR BEFORE THE FIRST MEAL OF THE DAY 90 Capsule 3 OneTouch Delica Lancets 33G : Use twice a day E11.9 200 Each 3 Glucose Blood STRP USE STRIP TO CHECK GLUCOSE TWICE DAILY 200 Strip 3 ONETOUCH DELICA LANCETS FINE MISC Use twice a day 100 Each 11 Blood Glucose Monitoring Suppl (ONETOUCH VERIO) w/Device KIT Use up to 4 times a day E11.9 1 Kit 0 Ventolin HFA 108 (90 Base) MCG/ACT Inhalation Aerosol Solution Inhale 2 Puffs by mouth every 6 hours as needed for Wheezing, Dyspnea or Cough. (Patient not taking: Reported on 06/24/2023) 18 g 0 Albuterol Sulfate HFA 108 (90 Base) MCG/ACT Inhalation Aerosol Solution Inhale 2 Puffs by mouth every 6 hours as needed for Cough, Shortness of Breath or Wheezing. (Patient not taking: Reported on 06/24/2023) 18 g 2 Diclofenac Sodium 75 MG Oral Tablet Delayed Release (Voltaren) Take 1 Tab by mouth 2 times a day. With food. (Patient not taking: Reported on 11/18/2023) 60 Tab 11 lamoTRIgine (LAMICTAL) 25 MG Tablet Take 1 Tab by mouth 2 times a day. (Patient not taking: Reported on 12/25/2023) 180 Tab 3 clobetasol propionate (TEMOVATE) 0.05 % ointment Apply to affected areas of hands twice daily as needed for flares (Patient not taking: Reported on 06/24/2023) 60 g 2 No current facility-administered medications for this visit. Physical Exam Vitals: 12/25/23 1301 Temp: 36.6 C (97.8 F) Pulse: 87 SpO2: 95% BP: 112/82 BMI: 28.25 Physical Exam Vitals reviewed. Constitutional: Appearance: Normal appearance. HENT: Head: Normocephalic and atraumatic. Right Ear: Tympanic membrane, ear canal and external ear normal. Left Ear: Tympanic membrane, ear canal and external ear normal. Nose: Nose normal. Mouth/Throat: Mouth: Mucous membranes are moist. Eyes: Extraocular Movements: Extraocular movements intact. Conjunctiva/sclera: Conjunctivae normal. Pupils: Pupils are equal, round, and reactive to light. Cardiovascular: Rate and Rhythm: Normal rate and regular rhythm. Heart sounds: Normal heart sounds. Pulmonary: Effort: Pulmonary effort is normal. Breath sounds: Normal breath sounds. Abdominal: General: There is no distension. Palpations: Abdomen is soft. Tenderness: There is no abdominal tenderness. Musculoskeletal: Cervical back: Neck supple. Right lower leg: No edema. Left lower leg: No edema. Lymphadenopathy: Cervical: No cervical adenopathy. Skin: General: Skin is warm and dry. Capillary Refill: Capillary refill takes less than 2 seconds. Neurological: Mental Status: She is alert and oriented to person, place, and time. Psychiatric: Behavior: Behavior normal. Thought Content: Thought content normal. Assessment and Plan Encounter for long-term (current) use of medications - CBC WITH WBC DIFFERENTIAL; Future - BASIC METABOLIC PANEL; Future - HEMOGLOBIN A1C; Future - LIPID PANEL WITH DIRECT LDL IF TG IS HIGH; Future Alcohol dependence in remission (HCC) Type 2 diabetes mellitus with hemoglobin A1c goal of less than 7.0% (HCC) Recheck A1c 6 mo - metFORMIN HCl ER 500 MG Oral Tablet Extended Release 24 Hour (Glucophage XR); Take 3 Tablets by mouth in the morning. Ceruminosis, left Unable to fully remove wax Recommend debrox x 1-2 weeks then return for lavage - Debrox 6.5 % Otic Solution (Carbamide Peroxide); Administer 5 Drops into the left ear once for 1 dose. Fill ear canal and insert cotton plug. Remove plug after 15 to 30 minutes. Dyslipidemia, goal LDL below 100 Recheck labs ahead of next visit HTN, goal below 130/80 Recheck labs ahead of next visit MDD (major depressive disorder), single episode, in partial remission (HCC) stable Bipolar 1 disorder (HCC) stable Tobacco use disorder Advise cessation Medical marijuana use Wrap-Up Follow Up: Return if symptoms worsen or fail to improve, for Labs 2-5 Days Before Next Visit. | For: Labs 2-5 Days Before Next Visit Time: I spent a total of 20-29 minutes (exact time 25 mins) on the date of service in preparation, delivery, and documentation of the care provided to Shira Parks excluding any time spent in the performance of separately billed services. documented in this encounter Nursing Notes * Su Umanzor LPN - 12/25/2023 1:01 PM EDT The patient has been properly identified by confirmation of name and date of . Chief Complaint Patient presents with Re-Check 6 month xiomara Fatigue, Fluid in L ear. documented in this encounter Plan of Treatment Upcoming Encounters Date Type Department Care Team (Late st Contact Info) Description 07/01/2024 10:00 AM EST Office Visit [facility] [address] [id number] Basil Montenegro, [address] [place] [id number] 07/06/2024 12:00 PM EDT Imaging Radiology [facility] [address] [facility] [place] [address] [facility] [place] [id number] Scheduled Orders Name Type Priority Associated Diagnoses Orde r Schedule CBC WITH WBC DIFFERENTIAL Lab Routine Encounter for long-term (current) use of medications Expected: 06/25/2024 (Approximate), Expires: 12/24/2024 BASIC METABOLIC PANEL Lab Routine Encounter for long-term (current) use of medications HTN, goal below 130/80 Expected: 06/25/2024 (Approximate), Expires: 12/24/2024 HEMOGLOBIN A1C Lab Routine Encounter for long-term (current) use of medications Type 2 diabetes mellitus with hemoglobin A1c goal of less than 7.0% (HCC) Expected: 06/25/2024 (Approximate), Expires: 12/24/2024 LIPID PANEL WITH DIRECT LDL IF TG IS HIGH Lab Routine Encounter for long-term (current) use of medications Expected: 06/25/2024, Expires: 12/24/2024 REMOVAL IMPACTED CERUMEN IRRIGATION/LAVAGE, UNILAT Procedures Routine Ceruminosis, left Ordered: 12/25/2023 Scheduled Procedures Name Priority Associated Diagnoses Date/Ti me COLONOSCOPY FLEXIBLE PROXIMA L DIAGNOSTIC Recall Encounter for screening colonoscopy Health Maintenance Due Date Last Done Comments DISCUSS TOBACCO CESSATION (REFER TO SMARTSET #0636) 1959 HPV/Co-Test 1989 Cologuard 02/11/2004 Fecal Occult Blood Test 02/11/2004 Sigmoidoscopy 02/11/2004 COVID-19 Vaccine ( season) 2022 03/16/2021, 08/25/2020 Cervical Cancer Screening 01/17/2023 Pap Smear 01/17/2023 01/18/2020, 12/28, 08/27/2016, Additional history exists *COPD SEVERITY VERIFIED BY PFT 06/26/2023 Influenza Vaccine (FLU shot) (#1) 2023 02/25/2022, 03/16/2021, 01/18/2020, Additional history exists Diabetic Eye Exam 03/07/2024 03/07/2023, , 09/11/2020, Additional history exists HbA1c 06/11/2024 12/10/2023, 05/30, 10/08/2022, Additional history exists Depression Monitoring 06/24/2024 06/24/2023 Diabetic Foot Exam 06/24/2024 06/24/2023, 0 09/13/2021, 07/13/2019, Additional history exists Mammogram 07/02/2024 07/03/2023, 02/27, 01/18/2020, Additional history exists Albumin/Creatinine Ratio 12/09/2024 024, 06/24/2023, 05/23/2023, Additional history exists B-12 12/09/2024 12/10/2023, 05/30, 02/25/2022, Additional history exists GFR 12/09/2024 12/10/2023, 09/26, 02/25/2022, Additional history exists O2 ASSESSMENT COMPLETED IN PAST YEAR FOR COPD 12/24/2024 12/25/2023 Colonoscopy 07/16/2026 07/16/2016, 06/27, 07/02/2006, Additional history [...] as of this encounter Visit Diagnoses Diagnosis Encounter for long-term (current) use of medications- Primary Encounter for long-term (current) use of other medications Alcohol dependence in remission (HCC) Other and unspecified alcohol dependence, in remission Type 2 diabetes mellitus with hemoglobin A1c goal of less than 7.0% (HCC) Ceruminosis, left Dyslipidemia, goal LDL below 100 Other and unspecified hyperlipidemia HTN, goal below 130/80 Unspecified essential hypertension MDD (major depressive disorder), single episode, in partial remission (HCC) Major depressive disorder, single episode, in partial or unspecified remission Bipolar 1 disorder (HCC) Bipolar I disorder, most recent episode (or current) unspecified Tobacco use disorder Medical marijuana use Encounter for long-term (current) use of other medications documented in this encounter Advance Directives * [...] Power of Attor abi? No Care Teams Interrelated Special Education Teacher Relationship Specialty Start Date End Date Basil Montenegro DO [address] [id number] PCP - General Family Medicine 07/13/19 documented as of this encounter
--- OUTSIDE RECORDS SUMMARY | 2024-04-05 03:14 | External Medical Summary ---
Author Name Unknown Address Unknown Organization [id number]:LABORATORY [facility] [place] - [address] [place] [id number] Laboratory Report Ordering Provider Test Date Status KARLEY REYNOSO 12/10/2023 11:45:04 Final Observation Date Value Abnormality Reference (Units ) Status Vitamin B12 12/10/2023 11:45:04 [id number] (pg/mL) Final Performing Location LABORATORY [facility] - [address] [place] [address]
--- OUTSIDE RECORDS SUMMARY | 2024-04-05 03:14 | External Medical Summary ---
Author Name Unknown Address Unknown Organization [id number]:LAB[facility]ATORY [facility] [place] - [address] [facility] [id number] Laboratory Report Ordering Provider Test Date Status KARLEY REYNOSO 12/10/2023 11:45:04 Final Observation Date Value Abnormality Reference (Units ) Status Triglyceride 12/10/2023 11:45:04 89 <=174 ( mg/dL) Final Triglyceride Reference Range s (mg/dL):
<150 Acceptable
150-174 Borderline high
175-499 High
>=500 Very high Cholesterol 12/10/2023 11:45:04 152 <200 (mg /dL) Final Total Cholesterol Reference Ranges (mg/dL):
<200 Desirable
200-239 Borderline high
>=240 High HDL 12/10/2023 11:45:04 49 Below low normal >49 (mg/dL) Final HDL Cholesterol Reference Ra nges (mg/dL):
>=60 High (Desirable)
<50 Low (Undesirable) For Females
<40 Low (Undesirable) For Males NON-HDL CHOLESTEROL 12/10/2023 11:45:04 103 <=159 (mg/dL) Final Non-HDL Cholesterol Referenc e Range (mg/dL):
<100 Target level for high risk ASCVD patient
<130 Optimal for general population
130-159 Near optimal for general population
160-189 Borderline High
190-219 High
>=220 Very High LDL, (calculated) 12/10/2023 11:45:04 85 <= 129 (mg/dL) Final LDL Cholesterol Reference Ra nges (mg/dL):
<70 Target level for high risk ASCVD patient
<100 Optimal for general population
100-129 Near optimal for general population
130-159 Borderline high
160-189 High
>=190 Very high Performing Location LABORATORY [facility] [place] - [address] [facility] [address]
--- OUTSIDE RECORDS SUMMARY | 2024-04-05 03:14 | External Medical Summary | Summary of Care ---
Author Name Unknown Organization [facility] Address [address] [place] [address] Phone [phone] Care Team Providers Care Finance Clerk Name Role Phone Jeancarlos Montenegror Shine Primary Care Provider Encounter Details Date Type Department Care Team (Late st Contact Info) Description 02/27/2024 Population Health External Data Unspecified Department Allergies Active Allergy Reactions Criticality Noted Date Comments Percocet Rash 07/25/2006 documented as of this encounter (statuses as of 02/27/2024) Medications Medication Sig Dispensed Refills Start Date End Date Status clobetasol propionate (TEMOVATE) 0.05 % ointmentIndication s:Dermatitis,DM type 2 nursing care encounter (HCC) Apply [...] 180 Tab 3 09/17/2018 Active Glucose Blood STRPIndications:DM type 2 nursing care encounter (HCC) USE STRIP TO CHECK GLUCOSE TWICE DAILY 200 Strip 3 06/24/2019 Active Additional Information Patient not taking.Reported on 02/23/2024 OneTouch Delica Lancets 33G : Use twice a day E11.9 200 Each 3 05/31/2021 Active Additional Information Patient not taking.Reported on 02/23/2024 Omeprazole 20 MG Oral Capsule Delayed Release (PriLOSEC)Indicati ons:Hiatal hernia,Acute gastritis, presence of bleeding unspecified, unspecified gastritis type TAKE 1 CAPSULE BY MOUTH ONCE DAILY TAKE ONE HOUR BEFORE THE FIRST MEAL OF THE DAY 90 Capsule 3 07/11/2023 Active OneTouch UltraSoft LancetsIndications :DM type 2 nursing care encounter ([facility]) Check twice a day. E11.9 100 Each 3 07/28/2023 Active Additional Information Patient not taking.Reported on 02/23/2024 OneTouch Verio In Vitro Strip (Glucose Blood)Indications: DM type 2 nursing care encounter ([facility]) Use to check glucose twice daily E11.9 200 Strip 3 07/28/2023 Active Additional Information Patient not taking.Reported on 02/23/2024 Empagliflozin 10 MG Oral Tablet (Jardiance)Indicat ions:Type 2 diabetes mellitus with hemoglobin A1c goal of less than 7.0% ([facility]) Take 1 Tablet by mouth in the morning. 90 Tablet 1 09/19/2023 Active Rosuvastatin Calcium 5 MG Oral Tablet (Crestor) Take 1 Tablet by mouth in the morning. 90 Tablet 11/06/2023 Active Metoprolol Succinate ER 50 MG Oral Tablet Extended Release 24 Hour (toPROL XL)Indications:HTN , goal below 130/80 Take 1 Tablet by mouth in the morning. 90 Tablet 1 11/06/2023 Active Lisinopril 40 MG Oral Tablet Take 1/2 (one-half) tablet by mouth once daily 45 Tablet 11/06/2023 Active Venlafaxine HCl ER 150 MG Oral Capsule Extended Release 24 Hour (Effexor XR)Indications:Bip olar 1 disorder (HCC) Take 1 Capsule by mouth in the morning. 90 Capsule 11/06/2023 Active Venlafaxine HCl ER 75 MG Oral Capsule Extended Release 24 Hour (Effexor XR)Indications:Bip olar 1 disorder (HCC) Take 1 Capsule by mouth in the morning. 90 Capsule 1 11/06/2023 Active amLODIPine Besylate 10 MG Oral Tablet (Norvasc) Take 1 Tablet by mouth in the morning. 90 Tablet 11/06/2023 Active metFORMIN HCl ER 500 MG Oral Tablet Extended Release 24 Hour (Glucophage XR)Indications:Typ e 2 diabetes mellitus with hemoglobin A1c goal of less than 7.0% (HCC) Take 3 Tablets by mouth in the morning. 270 Tablet 1 12/25/2023 Active Azithromycin 250 MG Oral Tablet (Zithromax) Take 2 tabs by mouth on the first day, then 1 tab daily on days two through five 6 Tablet 02/23/2024 02/28/2024 Active documented as of this encounter (statuses as of 02/27/2024) Active Problems Problem Noted Date Diagnosed Date [...] fracture 09/13/2021 Age-related nuclear cataract, bilateral 09/14/19 22 Hiatal hernia 09/13/2021 Major depressive disorder with [...] as of this encounter (statuses as of 02/27/2024) Resolved Problems Problem Noted Date Diagnosed Date [...] as of this encounter (statuses as of 02/27/2024) Immunizations Name Administration Dates Next Due Covid-19 Ad26, Single Dose (Carol/J&J) 03/16/2021,08/25/2020 HEP A - Hepatitis A (Adult > 18 yrs) 09/23/2017 HepA Inact/HepB Recomb>=18yrs old 07/30/2017 Hepatitis B, 20+ yrs 09/23/2017,05/12/19 15,09/08/2013,05/24 Pneumococcal Conjugate Vacci ne, 20-valent ([id number]) 09/13/2021 Pneumococcal Polysaccharide PPV23 (Pneumovax) 08/05/2006 Seasonal [...] 10:00 AM EST Office Visit Family Practice [facility] [address] [place] [address] Basil Montenegro DO [address] [place] [address] 07/06/2024 12:00 PM EDT Imaging Radiology [facility] [address] [place] [phone] Scheduled Procedures Name Priority Associated Diagnoses Date/Ti me COLONOSCOPY FLEXIBLE PROXIMA L DIAGNOSTIC Recall Encounter for screening colonoscopy Health Maintenance Due Date Last Done Comments DISCUSS TOBACCO CESSATION (REFER TO SMARTSET #4341) 1960 Cologuard 02/11/2004 Fecal Occult Blood Test [...] Not on filedocumented as of this encounter Advance Directives * Full Code [...] Power of Attor abi? No Care Teams Finance Clerk Relationship Specialty Start Date End Date Basil Montenegro DO [address] [place] [phone] PCP - General Family Medicine 07/13/19 documented as of this encounter
--- OUTSIDE RECORDS SUMMARY | 2024-04-05 03:14 | External Medical Summary ---
Author Name Unknown Address Unknown Organization K01:[facility] - [address] [facility] [address] Laboratory Report Ordering Provider Test Date Status KARLEY REYNOSO 12/10/2023 11:45:04 Final Observation Date Value Abnormality Reference (Units ) Status HbA1C 12/10/2023 11:45:04 8.0 Above high normal 4. 0-5.6 (%) Final The use of HbA1c to monitor glycemic status is based on normal hemoglobin and HbA composition. This test should not be used in patients with abnormal hemoglobin that affects the half life of the red blood cell or the in vivo glycation rates. Glucose, estimated average 12/10/2023 11:45:04 183 Above high normal <126 (mg/dL) Ray crow Performing Location [facility] [place] [address] [facility] [address]
--- OUTSIDE RECORDS SUMMARY | 2024-04-05 03:14 | External Medical Summary | Summary of Care ---
Author Name Unknown Organization [facility] Address [address] [place] [address] Phone [phone] Care Team Providers Care Window Shade Cutter Name Role Phone Basil Montenegro DO Primary Care Provider Reason for Visit * Reason Onset Date Comments Advice 11/14/2023 Encounter Details Date Type Department Care Team ([facility] st Contact Info) Description 11/14/2023 Telephone Family Practice [facility] [address] [facility] [place] [address] Basil Montenegro DO [address] [facility] [place] [address] Advice Allergies Active Allergy Reactions Criticality Noted Date Comments Percocet Rash 07/25/2006 documented as of this encounter (statuses as of 11/19/2023) Medications Medication Sig Dispensed Refills Start Date [...] mouth in the morning. 180 Tablet 1 11/06/2023 Active Lisinopril 40 MG Oral Tablet Take 1/2 (one-half) tablet by mouth once daily 45 Tablet 1 11/06/2023 Active Venlafaxine HCl ER 150 MG [...] the morning. 90 Tablet 1 11/06/2023 Active documented as of this encounter (statuses as of 11/19/2023) Active Problems Problem Noted Date Diagnosed Date [...] as of this encounter (statuses as of 11/19/2023) Resolved Problems Problem Noted Date Diagnosed Date [...] as of this encounter (statuses as of 11/19/2023) Immunizations Name Administration Dates Next Due Covid-19 Ad26, Single Dose (Carol/J&J) 03/16/2021,08/25/2020 HEP A - Hepatitis A (Adult > 18 yrs) 09/23/2017 HepA Inact/HepB Recomb>=18yrs old 07/30/2017 Hepatitis B, 20+ yrs 09/23/2017,05/12/19 15,09/08/2013,05/24 Pneumococcal Conjugate Vacci ne, 20-valent ([id number]) 09/13/2021 Pneumococcal Polysaccharide PPV23 (Pneumovax) 08/05/2006 Seasonal [...] encounter Miscellaneous Notes * Telephone Encounter - Niharika Anthony LPN - 11/19/2023 10:20 AM EDT Had appt 11/17 * Telephone Encounter - Nia Givens OSA - 11/14/2023 3:36 PM EDT Patient calling stating she was seen in [facility] for a UTI was put on Phenazopyrid. Now has beenhaving diarrhea, Throwing up. Would like to know if its a Virus. Please call patient documented in this encounter Plan of Treatment Upcoming Encounters Date Type Department Care Team (Late st Contact Info) Description 12/23/2023 10:00 AM EDT Office Visit [facility] [address] [place] [address] Mihaela Henriquez CRNP [address] [place] [phone] 07/01/2024 10:00 AM EST Office Visit [facility] [address] [place] [address] Basil Montenegro DO [address] [place] [phone] 07/06/2024 12:00 PM EDT Imaging Radiology [facility] [address] [place] [address] Scheduled Procedures Name Priority Associated Diagnoses Date/Ti me COLONOSCOPY FLEXIBLE PROXIMA L DIAGNOSTIC Recall Encounter for screening colonoscopy Health Maintenance Due Date Last Done Comments DISCUSS TOBACCO CESSATION (REFER TO SMARTSET #0281) 1960 HPV/Co-Test 1989 Cologuard 02/11/2004 Fecal Occult [...] Power of Attor abi? No Care Teams Window Shade Cutter Relationship Specialty Start Date End Date Basil Montenegro DO [address] [place] [phone] PCP - General Family Medicine 07/13/19 documented as of this encounter
--- OUTSIDE RECORDS SUMMARY | 2024-04-05 03:14 | External Medical Summary | Summary of Care ---
Author Name Unknown Organization [facility] Address [address] [place] [address] Phone [phone] Care Team Providers Care Supply Chain Buyer Name Role Phone Lan Basil Riojas DO Primary Care Provider Reason for Visit * Reason Comments Acute Pt here for a cough for a little over week. Pt has been taking some OTC DM medication. Pt reports that that she has also been fatigued and has been having trouble holding her bladder. Pt believes that everything is connected. Dr Gareth Alvarez sent in a script for an antibiotic over the weekend but pt has not picked up Encounter Details Date Type Department Care Team (Late st Contact Info) Description 02/23/2024 3:00 PM EDT Office Visit Family [facility] [address] [facility] [phone] Mauricio Mae MD [address] [facility] [place] [phone] COPD exacerbation (HCC)*; Acute cough Allergies Active Allergy Reactions Criticality Noted Date Comments Percocet Rash 07/25/2006 documented as of this encounter (statuses as of 02/23/2024) Medications Medication Sig Dispensed Refills Start Date [...] STRPIndications: DM type 2 nursing care encounter ([facility]) USE STRIP TO CHECK GLUCOSE TWICE DAILY [...] ns:DM type 2 nursing care encounter ([facility]) Check twice a day. E11.9 100 Each 3 4 Active Additional Information Patient not taking.Reported on 02/23/2024 OneTouch Verio In Vitro Strip (Glucose Blood)Indication s:DM type 2 nursing care encounter ([facility]) Use to check glucose twice daily E11.9 200 Strip 3 4 Active Additional Information Patient not taking.Reported on 02/23/2024 Empagliflozin 10 MG Oral Tablet (Jardiance)Indic ations:Type 2 diabetes mellitus with hemoglobin A1c goal of less than 7.0% ([facility]) Take 1 Tablet by mouth in the [...] A1c goal of less than 7.0% ([facility]) Take 3 Tablets by mouth in the morning. 270 Tablet 1 4 Active Azithromycin 250 MG Oral Tablet (Zithromax) Take 2 tabs by mouth on the first day, then 1 tab daily on days two through five 6 Tablet 4 02/28/20 24 Active Diclofenac Sodium 75 MG Oral Tablet Delayed Release (Voltaren)Indica tions:Lateral meniscus tear Take 1 Tab by mouth 2 times a day. With food. 60 Tab 11 1 02/23/20 24 Discontinued(Med ication List Clean Up) Albuterol Sulfate HFA 108 (90 Base) MCG/ACT Inhalation Aerosol SolutionIndicati ons:Chronic bronchitis, unspecified chronic bronchitis type (HCC) Inhale 2 Puffs by mouth every 6 hours as needed for Cough, Shortness of Breath or Wheezing. 18 g 2 3 02/23/20 24 Discontinued(Med ication List Clean Up) Ventolin HFA 108 (90 Base) MCG/ACT Inhalation Aerosol Solution Inhale 2 Puffs by mouth every 6 hours as needed for Wheezing, Dyspnea or Cough. 18 g 3 02/23/20 24 Discontinued(Med ication List Clean Up) Nitrofurantoin Monohyd Macro 100 MG Oral Capsule (Macrobid) Take 1 Capsule by mouth in the morning and 1 Capsule before bedtime. Do all this for 7 days. With food until gone. 14 Capsule 4 02/23/20 24 Discontinued documented as of this encounter (statuses as of 02/23/2024) Active Problems Problem Noted Date Diagnosed Date [...] as of this encounter (statuses as of 02/23/2024) Resolved Problems Problem Noted Date Diagnosed Date [...] as of this encounter (statuses as of 02/23/2024) Immunizations Name Administration Dates Next Due Covid-19 Ad26, Single Dose (Carol/J&J) 03/16/2021,08/25/2020 HEP A - Hepatitis A (Adult > 18 yrs) 09/23/2017 HepA Inact/HepB Recomb>=18yrs old 07/30/2017 Hepatitis B, 20+ yrs 09/23/2017,05/12/19 15,09/08/2013,05/24 Pneumococcal Conjugate Vacci ne, 20-valent ([id number]) 09/13/2021 Pneumococcal Polysaccharide PPV23 (Pneumovax) 08/05/2006 Seasonal [...] Day Cigarettes 0.5 47 Smokeless Tobacco: Never Tobacco Cessation:Ready to Q uit: No; Counseling Given: No Comments:started age 13 Alcohol Use Standard Drinks/Week [...] 9:25 AM EDT Sexual Orientation Straight 07/13/2019 9 :25 AM EDT Job Start Date Occupation Industry Not on file Not on file Not on file documented as of this encounter Last Filed Vital Signs Vital Sign Reading Time Taken Comments Blood Pressure 118/80 02/23/2024 2:59 PM EDT Pulse 77 02/23/2024 2:59 PM EDT Temperature 36.8 C (98.2 F) 02/23/2024 2:59 PM ED T Respiratory Rate 16 02/23/2024 2:59 PM EDT Oxygen Saturation 95% 02/23/2024 2:59 PM EDT Inhaled Oxygen Concentration - - Weight 71.9 kg (158 lb 9.6 oz) 02/23/2024 2:59 P M EDT Height 157.5 cm (5' 2") 02/23/2024 2:59 PM EDT Body Mass Index 29.01 02/23/2024 2:59 PM EDT documented in this encounter Functional [...] as of this encounter Progress Notes * Mauricio Mae MD - 02/23/2024 3:17 PM EDT Images from the original note were not included. History of Present Illness Shira Parks is a 64 year old female that presents for Acute (Pt here for a cough for a little over week. Pt has been taking some OTC DM medication. Pt reports that that she has also been fatigued and has been having trouble holding her bladder. Pt believes that everything is connected. Dr Gareth Alvarez sent in a script for an antibiotic over the weekend but pt has not picked up) Patient does not have pain with urination Physical Exam BP 118/80 (BP Site: Left Arm, BP Position: Sitting, BP Cuff Size: Regular) | Pulse 77 | Temp 36.8 C (98.2 F) (Tympanic) | Resp 16 | Ht 1.575 m (5' 2") | Wt 71.9 kg (158 lb 9.6 oz) | LMP 11/18/2006 | SpO2 95% | BMI 29.01 kg/m | BSA 1.77 m AAOx3 Normal affect Non ill appearing NCAT/ PERRL Neck supple Throat clear RRR + b/l expiratory wheezes, worse apically Ext warm and well perfused No gross neuro deficits Normal gait I have reviewed most recent labs None Assessment and Plan COPD exacerbation (HCC) - will treat. Avoid steroid due to DM. Still smoking Cessation advised. Acute cough - Hold jardiance for week. Do not take the nitrofurantoin that was called in last week - I sent cancel order to pharmacy. Wrap-Up prn Time: I spent a total of 10-19 minutes (exact time 15 mins) on the date of service in preparation, delivery, and documentation of the care provided to Shira Parks excluding any time spent in the performance of separately billed services. documented in this encounter Plan of Treatment Upcoming Encounters Date Type Department Care Team (Late st Contact Info) Description 07/01/2024 10:00 AM EST Office Visit Family Practice [facility] [address] [place] [phone] Basil Montenegro, [address] [place] [phone] 07/06/2024 12:00 PM EDT Imaging Radiology [facility] [address] [place] [address] Scheduled Procedures Name Priority Associated Diagnoses Date/Ti me COLONOSCOPY FLEXIBLE PROXIMA L DIAGNOSTIC Recall Encounter for screening colonoscopy Health Maintenance Due Date Last Done Comments DISCUSS TOBACCO CESSATION (REFER TO SMARTSET #4671) 1960 Cologuard 02/11/2004 Fecal Occult Blood Test [...] as of this encounter Visit Diagnoses Diagnosis COPD exacerbation (HCC)- Primary Obstructive chronic bronchitis with exacerbation Acute cough documented in this encounter Advance Directives * [...] Power of Attor abi? No Care Teams Supply Chain Buyer Relationship Specialty Start Date End Date Basil Montenegro DO [address] [place] [address] PCP - General Family Medicine 07/13/19 documented as of this encounter
--- OUTSIDE RECORDS SUMMARY | 2024-04-05 03:14 | External Medical Summary | Summary of Care ---
Author Name Unknown Organization [facility] Address [address] [place] [address] Phone [phone] Care Team Providers Care Carpet Finishing Supervisor Name Role Phone [place] Basil Riojas DO Primary Care Provider Reason for Visit * Reason Onset Date Comments Test Results 11/20/2023 Encounter Details Date Type Department Care Team ([facility] st Contact Info) Description 11/20/2023 Telephone Family Practice [facility] [address] [place] [address] Tasia Farr CRNP [address] [facility] [address] Test Results Allergies Active Allergy Reactions Criticality Noted Date Comments Percocet Rash 07/25/2006 documented as of this encounter (statuses as of 11/20/2023) Medications Medication Sig Dispensed Refills Start Date [...] Sodium 75 MG Oral Tablet Delayed Release (Voltaren)Indicati ons:Lateral meniscus tear Take 1 Tab by mouth 2 times a day. With food. 60 Tab 11 08/16/2020 Active Additional Information Patient not taking.Reported on 11/18/2023 OneTouch Delica Lancets 33G : Use twice a day E11.9 200 Each 3 05/31/2021 Active Albuterol Sulfate HFA 108 (90 Base) MCG/ACT Inhalation Aerosol SolutionIndication s:Chronic bronchitis, unspecified chronic bronchitis type (HCC) Inhale 2 Puffs by mouth every 6 hours as needed for Cough, Shortness of Breath or Wheezing. 18 g 2 10/08/2022 Active Additional Information Patient not taking.Reported on 06/24/2023 Fluticasone-Salmet garo 250-50 MCG/ACT Inhalation Aerosol Powder Breath Activated (Advair Diskus)Indications :Chronic bronchitis, unspecified chronic bronchitis type (HCC) [...] LancetsIndications :DM type 2 nursing care encounter ([facility]) Check twice a day. E11.9 100 Each 3 07/28/2023 Active OneTouch Verio In Vitro Strip (Glucose Blood)Indications: DM type 2 nursing care encounter ([facility]) Use to check glucose twice daily E11.9 200 Strip 3 07/28/2023 Active Empagliflozin 10 MG Oral Tablet (Jardiance)Indicat ions:Type 2 diabetes mellitus with hemoglobin A1c goal of less than 7.0% ([facility]) Take 1 Tablet by mouth [...] hemoglobin A1c goal of less than 7.0% ([facility]) Take 2 Tablets by mouth in the [...] in the morning. 90 Tablet 11/06/2023 Active Nitrofurantoin Monohyd Macro 100 MG Oral Capsule (Macrobid)Indicati ons:Acute cystitis with hematuria Take 1 Capsule by mouth in the morning and 1 Capsule before bedtime. Do all this for 5 days. With food until gone. 10 Capsule 11/20/2023 11/25/2023 Active Fluconazole 150 MG Oral Tablet (Diflucan)Indicati ons:Antibiotic-ind uced yeast infection Take 1 Tablet by mouth once for 1 dose. Can repeat another dose in 3 days if symptoms persist. 2 Tablet 11/20/2023 11/20/2023 Active documented as of this encounter (statuses as of 11/20/2023) Active Problems Problem Noted Date Diagnosed Date [...] as of this encounter (statuses as of 11/20/2023) Resolved Problems Problem Noted Date Diagnosed Date [...] as of this encounter (statuses as of 11/20/2023) Immunizations Name Administration Dates Next Due Covid-19 Ad26, Single Dose (Carol/J&J) 03/16/2021,08/25/2020 HEP A - Hepatitis A (Adult > 18 yrs) 09/23/2017 HepA Inact/HepB Recomb>=18yrs old 07/30/2017 Hepatitis B, 20+ yrs 09/23/2017,05/12/19 15,09/08/2013,05/24 Pneumococcal Conjugate Vacci ne, 20-valent ([id number]) 09/13/2021 Pneumococcal Polysaccharide PPV23 (Pneumovax) 08/05/2006 Seasonal [...] encounter Miscellaneous Notes * Telephone Encounter - Cayden Lim RN - 11/20/2023 1:13 PM EDT Called patient and informed her of Tasia's previous message. She verbalized understanding of all information. * Telephone Encounter - Tasia Farr CRNP - 11/20/2023 12:57 PM EDT Please call patient. Urine culture showed UTI. Sent Macrobid for 5 days. Also sent diflucan if she has recurrent yeast infection. documented in this encounter Plan of Treatment Upcoming Encounters Date Type Department Care Team (Late st Contact Info) Description 12/23/2023 10:00 AM EDT Office Visit [facility] [address] [place] [address] Mihaela Henriquez CRNP [address] [phone] 07/01/2024 10:00 AM EST Office Visit [facility] [address] [place] [address] Basil Montenegro DO [address] [place] [address] 07/06/2024 12:00 PM EDT Imaging Radiology [facility] [address] [place] [address] Scheduled Procedures Name Priority Associated Diagnoses Date/Ti me COLONOSCOPY FLEXIBLE PROXIMA L DIAGNOSTIC Recall Encounter for screening colonoscopy Health Maintenance Due Date Last Done Comments DISCUSS TOBACCO CESSATION (REFER TO SMARTSET #8757) 1960 HPV/Co-Test 1989 Cologuard 02/11/2004 Fecal Occult [...] as of this encounter Visit Diagnoses Diagnosis Antibiotic-induced yeast infection- Primary Other and unspecified mycoses Acute cystitis with hematuria Acute cystitis documented in this encounter Advance Directives * [...] Power of Attor abi? No Care Teams Carpet Finishing Supervisor Relationship Specialty Start Date End Date Basil Montenegro DO [address] [place] [phone] PCP - General Family Medicine 07/13/19 documented as of this encounter
--- OUTSIDE RECORDS SUMMARY | 2024-04-05 03:14 | External Medical Summary | Summary of Care ---
Author Name Unknown Organization [facility] Address [address] [place] [address] Phone [phone] Care Team Providers Care Freight Trucker Name Role Phone Basil Montenegro DO Primary Care Provider Reason for Visit * Reason Onset Date Comments Urinary Tract Infection Symptoms 02/21/2024 Encounter Details Date Type Department Care Team (Late st Contact Info) Description 02/21/2024 Telephone Family Practice [facility] [address] [facility] [address] Basil Montenegro DO [address] [facility] [address] Urinary Tract Infection Symptoms Allergies Active Allergy Reactions Criticality Noted Date Comments Percocet Rash 07/25/2006 documented as of this encounter (statuses as of 02/21/2024) Medications Medication Sig Dispensed Refills Start Date [...] Tab 3 09/17/2018 Active Additional Information Patient not taking.Reported on 12/25/2023 Glucose Blood STRPIndications:DM type 2 nursing care [...] SolutionIndication s:Chronic bronchitis, unspecified chronic bronchitis type ([facility]) Inhale 2 Puffs by mouth every 6 [...] LancetsIndications :DM type 2 nursing care encounter ([facility]) Check twice a day. E11.9 100 Each 3 07/28/2023 Active OneTouch Verio In Vitro Strip (Glucose Blood)Indications: DM type 2 nursing care encounter (HCC) Use to check glucose twice daily E11.9 200 Strip 3 07/28/2023 Active Empagliflozin 10 MG Oral Tablet (Jardiance)Indicat ions:Type 2 diabetes mellitus with hemoglobin A1c goal of less than 7.0% ([facility]) Take 1 Tablet by mouth [...] the morning. 270 Tablet 1 12/25/2023 Active Nitrofurantoin Monohyd Macro 100 MG Oral Capsule (Macrobid) Take 1 Capsule by mouth in the morning and 1 Capsule before bedtime. Do all this for 7 days. With food until gone. 14 Capsule 02/21/2024 02/28/2024 Active documented as of this encounter (statuses as of 02/21/2024) Active Problems Problem Noted Date Diagnosed Date [...] as of this encounter (statuses as of 02/21/2024) Resolved Problems Problem Noted Date Diagnosed Date [...] as of this encounter (statuses as of 02/21/2024) Immunizations Name Administration Dates Next Due Covid-19 Ad26, Single Dose (Carol/J&J) 03/16/2021,08/25/2020 HEP A - Hepatitis A (Adult > 18 yrs) 09/23/2017 HepA Inact/HepB Recomb>=18yrs old 07/30/2017 Hepatitis B, 20+ yrs 09/23/2017,05/12/19 15,09/08/2013,05/24 Pneumococcal Conjugate Vacci ne, 20-valent ([id number]) 09/13/2021 Pneumococcal Polysaccharide PPV23 (Pneumovax) 08/05/2006 Seasonal [...] encounter Miscellaneous Notes * Telephone Encounter - Arelis Ghosh LPN - 02/21/2024 1:06 PM EDT Left message to make patient aware. * Telephone Encounter - Zander Alvarez DO - 02/21/2024 12:00 PM EDT I sent for Macrobid to the pharmacy for her to start * Telephone Encounter - Charlotte Boyd OSA - 02/21/2024 10:51 AM EDT FYI- Pt called for update on having nurse call her. Let pt know I see the message was left about anhour ago and let the pt know nurses will be calling della. Pt wanted to know when the first avail apt was, let O know the first avail was Friday. PT elected to schedule that while she waited for nurseto call back. I encouraged pt to go to urgent care if she is in discomfort and cannot wait until Friday. Let Pt know urgent care [facility] wait time and pt elected not to go. Pt waiting for nursecall. * Telephone Encounter - Kim Pino OSA - 02/21/2024 9:24 AM EDT Established female patient age 18+ calling with UTI symptoms of (Call Details not required): Frequent urination Please call patient back at: [phone] Any additional information to pass onto the RN: N/A Note: - Route UTI concerns for established female patient age 18+ to P [facility] NURSE TRIAGE POOL [[phone]] - For males of any age, females younger than 18 years old, and non-established females 18+, schedule an appointment. If unable to schedule, use [employer] smartphrase and include CALL DETAILS. Route TE to Clinic Nurse Pool. documented in this encounter Plan of Treatment Upcoming Encounters Date Type Department Care Team (Late st Contact Info) Description 02/23/2024 3:00 PM EDT Office Visit [facility] [address] [address] Mauricio Mae MD [address] [place] [address] 07/01/2024 10:00 AM EST Office Visit [facility] [address] [place] [address] Basil Montenegro DO [address] [place] [phone] 07/06/2024 12:00 PM EDT Imaging Radiology [facility] 1st [facility] [address] [address] Scheduled Procedures Name Priority Associated Diagnoses Date/Ti me COLONOSCOPY FLEXIBLE PROXIMA L DIAGNOSTIC Recall Encounter for screening colonoscopy Health Maintenance Due Date Last Done Comments DISCUSS TOBACCO CESSATION (REFER TO SMARTSET #6876) 1960 Cologuard 02/11/2004 Fecal Occult Blood Test 02/11/2004 Sigmoidoscopy 02/11/2004 *COPD SEVERITY VERIFIED BY PFT 06/26/2023 COVID-19 Vaccine ( season) 2023 03/16/2021, 08/25/2020 Influenza Vaccine (FLU shot) (#1) 2023 02/25/2022, 03/16/2021, 01/18/2020, Additional history exists DXA Scan 02/11/2024 Diabetic Eye Exam 03/07/2024 03/07/2023, , 03/07/2022, Additional history exists HbA1c 06/11/2024 12/10/2023, 05/30, 10/08/2022, Additional history exists Depression Monitoring 06/24/2024 06/24/2023 Diabetic Foot Exam 06/24/2024 06/24/2023, 0 09/13/2021, 07/13/2019, Additional history exists Mammogram 07/02/2024 07/03/2023, 03/0 10/2023, 03/19/2021, Additional history exists Albumin/Creatinine Ratio [...] Discontinued 01/18/2020, 12/28, 08/27/2016, Additional history exists Pneumococcal Vaccine: 65+ Years Completed 09/13/2021, 08/05/2006 [...] Power of Attor abi? No Care Teams Freight Trucker Relationship Specialty Start Date End Date Basil Montenegro DO [address] [place] [phone] PCP - General Family Medicine 07/13/19 documented as of this encounter
--- OUTSIDE RECORDS SUMMARY | 2024-04-05 03:14 | External Medical Summary | Summary of Care ---
Author Name Unknown Organization [facility] Address [address] [place] [address] Phone [phone] Care Team Providers Care Film Splicer Name Role Phone MontenegroDavidBasiljuarez Pattersonsunny Primary Care Provider Encounter Details Date Type Department Care Team (Late st Contact Info) Description 11/05/2023 Result Scan Unspecified Department <No scans attached> Allergies Active Allergy Reactions Criticality Noted Date Comments Percocet Rash 07/25/2006 documented as of this encounter (statuses as of 12/01/2023) Medications Medication Sig Dispensed Refills Start Date [...] LancetsIndications: DM type 2 nursing care encounter ([facility]) Check twice a day. E11.9 100 Each 3 07/28/2023 Active OneTouch Verio In Vitro Strip (Glucose Blood)Indications:D M type 2 nursing care encounter ([facility]) Use to check glucose twice daily E11.9 200 Strip 3 07/28/2023 Active Empagliflozin 10 MG Oral Tablet (Jardiance)Indicati ons:Type 2 diabetes mellitus with hemoglobin A1c goal of less than 7.0% (HCC) Take 1 Tablet by mouth in the [...] as of this encounter (statuses as of 12/01/2023) Active Problems Problem Noted Date Diagnosed Date [...] closed fracture 09/13/2021 Age-related nuclear cataract, bilateral 05/19/20 22 Hiatal hernia 09/13/2021 Major depressive disorder [...] as of this encounter (statuses as of 12/01/2023) Resolved Problems Problem Noted Date Diagnosed Date [...] as of this encounter (statuses as of 12/01/2023) Immunizations Name Administration Dates Next Due Covid-19 Ad26, Single Dose (Carol/J&J) 03/16/2021,08/25/2020 HEP A - Hepatitis A (Adult > 18 yrs) 09/23/2017 HepA Inact/HepB Recomb>=18yrs old 07/30/2017 Hepatitis B, 20+ yrs 09/23/2017,05/12/19 15,09/08/2013,05/24 Pneumococcal Conjugate Vacci ne, 20-valent ([id number]) 09/13/2021 Pneumococcal Polysaccharide PPV23 (Pneumovax) 08/05/2006 Seasonal [...] Description 12/25/2023 1:00 PM EDT Office Visit [facility] [address] [place] [address] Mihaela Henriquez CRNP [address] [place] [address] 07/01/2024 10:00 AM EST Office Visit [facility] [address] [place] [address] Basil Montenegro DO [address] [place] [phone] 07/06/2024 12:00 PM EDT Imaging Radiology [facility] 1st [facility] [address] [place] [address] Scheduled Procedures Name Priority Associated Diagnoses Date/Ti me COLONOSCOPY FLEXIBLE PROXIMA L DIAGNOSTIC Recall Encounter for screening colonoscopy Health Maintenance Due Date Last Done Comments DISCUSS TOBACCO CESSATION (REFER TO SMARTSET #0745) 1960 HPV/Co-Test 1989 Cologuard 02/11/2004 Fecal Occult [...] Procedure Name Priority Date/Time Associated Diagnosis Comments OUTSIDE LAB RESULTS 11/12/2023 OUTSIDE LAB RESULTS 11/12/2023 OUTSIDE LAB RESULTS 11/05/2023 OUTSIDE LAB RESULTS 11/05/2023 documented in this encounter Results * OUTSIDE LAB RESULTS (11/12/2023) 11/12/2023 No Physician Data Unknown LABORATORY * OUTSIDE LAB RESULTS (11/12/2023) 11/12/2023 No Physician Data Unknown LABORATORY * OUTSIDE LAB RESULTS (11/05/2023) 11/05/2023 No Physician Data Unknown LABORATORY * OUTSIDE LAB RESULTS (11/05/2023) 11/05/2023 No Physician Data Unknown LABORATORY documented in this encounter Advance Directives * [...] Power of Attor abi? No Care Teams Film Splicer Relationship Specialty Start Date End Date Basil Montenegro DO [address] [place] [phone] PCP - General Family Medicine 07/13/19 documented as of this encounter
--- OUTSIDE RECORDS SUMMARY | 2024-04-05 03:14 | External Medical Summary ---
Author Name Unknown Address Unknown Organization [id number]:[facility] [address] [place] [address] Laboratory Report Ordering Provider Test Date Status KARLEY REYNOSO 12/10/2023 11:45:04 Final Observation Date Value Abnormality Reference (Units ) Status BUN 12/10/2023 11:45:04 17 6-20 (mg/dL) Final Creatinine 12/10/2023 11:45:04 0.5 0.5-1.0 (mg/dL) Final Glomerular filtration rate/1.73 sq M.predicted [Volume Rate/Area] in Serum, Plasma or Blood by Creatinine-based formula (CKD-EPI) 12/10/2023 11:45:04 >90 >=60 (mL/min) Final eGFR is calculated based on the CKD-EPI 2020 equation. Sodium 12/10/2023 11:45:04 138 135-146 (m mol/L) Final Potassium 12/10/2023 11:45:04 5.0 3.5-5.1 (m mol/L) Final Cl 12/10/2023 11:45:04 102 98-107 (mm ol/L) Final CO2 12/10/2023 11:45:04 26 22-32 (mmo l/L) Final Anion gap 12/10/2023 11:45:04 10 7-15 (mmol /L) Final Glucose 12/10/2023 11:45:04 154 Above high normal 70 -120 (mg/dL) Final Albumin 12/10/2023 11:45:04 4.1 3.8-5.0 (g /dL) Final AST (Aspartate aminotransferase) 12/10/2023 11:45:04 14 10-35 (U/L) Fin al Alk Phos 12/10/2023 11:45:04 118 35-130 (U/ L) Final Bilirubin, Total 12/10/2023 11:45:04 <0.2 <=1 .2 (mg/dL) Final Calcium 12/10/2023 11:45:04 9.4 8.4-10.2 ( mg/dL) Final Protein 12/10/2023 11:45:04 6.5 6.0-8.3 (g /dL) Final ALT (Alanine aminotransferase) 12/10/2023 11:45:04 16 10-35 (U/L) Ray crow Performing Location [facility] [address] [facility] [address]
--- OUTSIDE RECORDS SUMMARY | 2024-04-05 03:14 | External Medical Summary | Summary of Care ---
Author Name Unknown Organization [facility] Address [address] [place] [address] Phone [phone] Care Team Providers Care Blow Pit Helper Name Role Phone David Montenegrojuarez Pattersonsunny Primary Care Provider Encounter Details Date Type Department Care Team (Late st Contact Info) Description 12/01/2023 Orders Only Outcomes Research Department [address] [place] [address] Dayana Rader CHRA [employer] Other*[id number] Allergies Active Allergy Reactions Criticality Noted Date [...] LancetsIndications: DM type 2 nursing care encounter (HCC) Check twice a day. E11.9 100 Each 3 07/28/2023 Active Jeff Young In Vitro Strip (Glucose Blood)Indications:D M type 2 nursing care encounter (HCC) [...] A1c goal of less than 7.0% ([facility]) Take 2 Tablets by mouth in the [...] 09/23/2017,05/12/19 15,09/08/2013,05/24 Pneumococcal Conjugate Vacci ne, 20-valent ([id number]) 09/13/2021 Pneumococcal Polysaccharide PPV23 (Pneumovax) 08/05/2006 Seasonal [...] Description 12/25/2023 1:00 PM EDT Office Visit [facility] [address] [address] Mihaela Henriquez CRNP [address] [address] 07/01/2024 10:00 AM EST Office Visit [facility] [address] [place] [address] Basil Montenegro DO [address] [place] [address] 07/06/2024 12:00 PM EDT Imaging Radiology [facility]st [facility] [address] [place] [address] Scheduled Orders Name Type Priority Associated Diagnoses Orde r Schedule MYCODE SUBSEQUENT ADULT Lab Routine [employer] Other*[id number] Every 6 Months for 2 Occurrences starting 12/01/2023 until 12/20/2024 Scheduled Procedures Name Priority Associated Diagnoses Date/Ti me COLONOSCOPY FLEXIBLE PROXIMA L DIAGNOSTIC Recall Encounter for screening colonoscopy Health Maintenance Due Date Last Done Comments DISCUSS TOBACCO CESSATION (REFER TO SMARTSET #329) 1959 HPV/Co-Test 1989 Cologuard 02/11/2004 Fecal Occult [...] , 09/11/2020, Additional history exists Albumin/Creatinine Ratio 06/24/20242 024, 05/23/2023, 02/25/2022, Additional history exists B-12 [...] as of this encounter Visit Diagnoses Diagnosis [employer] Other*[id number] documented in this encounter Advance Directives * [...] Power of Attor abi? No Care Teams Blow Pit Helper Relationship Specialty Start Date End Date Basil Montenegro DO [address] [place] [place] [address] PCP - General Family Medicine 07/13/19 documented as of this encounter
--- OUTSIDE RECORDS SUMMARY | 2024-04-05 03:15 | External Medical Summary ---
Author Name Unknown Address Unknown Organization K01:LABORATORY [facility] - [address] [facility] [address] Laboratory Report Ordering Provider Test Date Status BASILIO WEINBERG 11/18/2023 16:57:04 Final <10,000 colonies/ml mixed no rmal zahra Observation Date Value Abnormality Reference (Units ) Status Bacteria identified in Specimen by Culture 11/18/2023 16:57:04 [id number]^ESCHE RICHIA COLI Abnormal Final 10,000 to 100,000 colonies/m L Escherichia coli Performing Location LABORATORY [facility] - [address] [facility] [address] Ordering Provider Test Date Status BASILIO WEINBERG 11/18/2023 16:57:04 Final Observation Date Value Abnormality Reference (Units ) Status Ampicillin 11/18/2023 16:57:04 >=32 Resistant Final Ampicillin + Sulbactam 11/18/2023 16:57:04 16 Intermediate Final Cefazolin 11/18/2023 16:57:04 <=4 Susceptible Final Cefepime susceptibility 11/18/2023 16:57:04 <=1 Susceptible Final Ceftriaxone suceptibility 11/18/2023 16:57:04 <=1 Susceptible Final Ciprofloxacin 11/18/2023 16:57:04 <=0.25 Susceptible Final Due to serious side effects, the FDA has advised against using Ciprofloxacin to treat uncomplicated UTIs and respiratory tract infections unless there are no alternative treatment options. Gentamicin susceptibility 11/18/2023 16:57:04 <=1 Susc eptible Final Nitrofurantoin susceptibility 11/18/2023 16:57:04 <=16 Susceptible Final Piperacillin + Tazobactamsusceptibility 11/18/2023 16:57:04 <=4 Susceptible Final TMP-SMZ susceptibility 11/18/2023 16:57:04 <=20 Suscept ible Final Test: Culture, Urine, Quanti tative
Specimen Source: Urine, Clean Catch
Specimen Type: Urine
Specimen Date: 11/18/2023 165
Result Date: 11/20/2023 1004
Result Status: Final result
Abnormal: Yes
Resulting Lab: LABORATORY [facility]
[address]
[place] [address]

CULTURE

10,000 to 100,000 colonies/mL Escherichia coli (Abnormal)

<10,000 colonies/ml mixed normal zahra

SUSCEPTIBILITY

Escherichia coli
METHOD MICROBROTH DILUTIONS

AMPICILLIN >=32 Resistant
AMPICILLIN/SULBACTAM 16 Intermediate
CEFAZOLIN <=4 Susceptible
CEFEPIME <=1 Susceptible
CEFTRIAXONE <=1 Susceptible
CIPROFLOXACIN <=0.25 Susceptible
[1]
GENTAMICIN <=1 Susceptible
NITROFURANTOIN <=16 Susceptible
PIPERACILLIN TAZOBACTAM <=4 Susceptible
TRIMETH/SULFAMETHOXAZOLE <=20 Susceptible

[1] Due to serious side effects, the FDA has advised against using
Ciprofloxacin to treat uncomplicated UTIs and respiratory tract infections
unless there are no alternative treatment options.

null Performing Location LABORATORY [facility] - [address] [facility] [address]
--- OUTSIDE RECORDS SUMMARY | 2024-04-05 03:15 | External Medical Summary ---
Author Name Unknown Address Unknown Organization K0G:[facility] [address] [place] [address] Laboratory Report Ordering Provider Test Date Status BASILIO WEINBERG 11/18/2023 16:52:00 Final Observation Date Value Abnormality Reference (Units ) Status Color of Urine by Auto 11/18/2023 16:52:00 Yellow Light Yellow, Yellow Final Clarity, Urine 11/18/2023 16:52:00 Slightly Cloudy Abnormal Clear Final Glucose [Mass/volume] in Urine by Automated test strip 11/18/2023 16:52:00 500 Abnormal Negative (mg/dL) Final Bilirubin.total [Presence] in Urine by Automated test strip 11/18/2023 16:52:00 Negative Negative Final Ketones [Mass/volume] in Urine by Automated test strip 11/18/2023 16:52:00 Negative Negative (mg/dL) Final Specific gravity, Urine 11/18/2023 16:52:00 1.010 1.003-1.030 Final Hemoglobin [Presence] in Urine by Automated test strip 11/18/2023 16:52:00 Trace-intact Abnormal Negative Final pH, Urine 11/18/2023 16:52:00 6.5 5.0, 5.5, 6.0, 6.5, 7.0, 7.5 (units) Final Protein [Mass/volume] in Urine by Automated test strip 11/18/2023 16:52:00 Negative Negative (mg/dL) Final Urobilinogen, Urine 11/18/2023 16:52:00 0.2 0.2, 1.0 (mg/dL) Final Nitrite [Presence] in Urine by Automated test strip 11/18/2023 16:52:00 Positive Abnormal Negative Final Leukocyte esterase [Presence] in Urine by Automated test strip 11/18/2023 16:52:00 Negative Negative Final Performing Location LAB[facility]ATORY [facility] [address] [place] [address]
--- OUTSIDE RECORDS SUMMARY | 2024-04-05 03:15 | External Medical Summary | Summary of Care ---
Author Name Unknown Organization [facility] Address [address] [place] [address] Phone [phone] Care Team Providers Care Wild Life Photographer Name Role Phone Lan Basil Riojas DO Primary Care Provider Reason for Visit * Reason Comments Follow Up [facility] urgent ca re Encounter Details Date Type Department Care Team (Late st Contact Info) Description 11/18/2023 4:40 PM EDT Office Visit Family [facility] [address] [facility] [place] [address] Tasia Farr CRNP [address] [place] [facility] [place] [address] Dysuria*; Type 2 diabetes mellitus with hemoglobin A1c goal of less than 7.0% ([facility]) Allergies Active Allergy Reactions Criticality Noted Date [...] LancetsIndications: DM type 2 nursing care encounter ([facility]) Check twice a day. E11.9 100 Each 3 07/28/2023 Active OneTouch Verio In Vitro Strip (Glucose Blood)Indications:D M type 2 nursing care encounter ([facility]) Use to check glucose twice daily E11.9 200 Strip 3 07/28/2023 Active Empagliflozin 10 MG Oral Tablet (Jardiance)Indicati ons:Type 2 diabetes mellitus with hemoglobin A1c goal of less than 7.0% ([facility]) Take 1 Tablet by mouth [...] hemoglobin A1c goal of less than 7.0% ([facility]) Take 2 Tablets by mouth [...] 09/23/2017,05/12/19 15,09/08/2013,05/24 Pneumococcal Conjugate Vacci ne, 20-valent ([id number]) 09/13/2021 Pneumococcal Polysaccharide PPV23 (Pneumovax) 08/05/2006 Seasonal [...] Sign Reading Time Taken Comments Blood Pressure 118/78 11/18/2023 4:41 PM EDT Pulse 92 11/18/2023 4:41 PM EDT Temperature 36.2 C (97.2 F) 11/18/2023 4:41 PM ED T Respiratory Rate 20 11/18/2023 4:41 PM EDT Oxygen Saturation - - Inhaled Oxygen Concentration - - Weight 69.9 kg (154 lb 3.2 oz) 11/18/2023 4:41 P M EDT Height - - Body Mass Index 27.32 05/31/2023 5:19 PM EST documented in this encounter Functional Status Functional [...] as of this encounter Progress Notes * Tasia Farr CRNP - 11/18/2023 4:52 PM EDT Images from the original note were not included. Acute UTI Family Medicine Visit History of Present Illness Shira Parks is a pleasant 63 year old female presenting with [facility] f/u. 11/05/23 diagnosed w/ UTI, culture showed e coli and treated with keflex. On 11/12/23, she returned to [facility] because she still had UTI symptoms - urine was normal, given pyridium. Since 11/05/23, she never felt her symptoms were completely resolved, feel something odd. Today, her symptoms include -dysuria -hematuria +bladder pain -frequency +urgency -vaginal discharge -vaginal burning -fever -chills -flank pain + decrease appetite Last use of antibiotics Keflex on 11/05/23 Past Medical History: Diagnosis Date Bipolar 1 disorder (HCC) Chronic hepatitis C (HCC) Dyslipidemia, goal LDL below 100 HTN, goal below 130/80 MDD (major depressive disorder), single episode, in partial remission ([facility]) Rectal prolapse 08/20/2017 Tobacco use disorder 08/20/2017 Type 2 diabetes mellitus treated without insulin (HCC) Type 2 diabetes, HbA1c goal < 7% ([facility]) Social History Socioeconomic History Marital status: Single Spouse name: Not on file Number of children: Not on file Years of education: Not on file Highest education level: Not on file Occupational History Not on file Tobacco Use Smoking status: Every Day Current packs/day: 0.50 Average packs/day: 0.5 packs/day for 47.0 years (23.5 ttl pk-yrs) Types: Cigarettes Smokeless tobacco: Never Tobacco comments: started age 13 Vaping Use Vaping status: Never Used Substance and Sexual Activity Alcohol use: Not Currently Comment: a few drinks a week Drug use: Yes Types: Marijuana Comment: A few times a week Sexual activity: Not on file Other Topics Concern Not on file Social History Narrative Not on file Social Determinants of Health Financial Resource Strain: Not on file Food Insecurity: No Food Insecurity (07/13/2019) Hunger Vital Sign Worried About Running Out of Food in the Last Year: Never true Ran Out of Food in the Last Year: Never true Transportation Needs: Not on file Social Connections: Unknown (11/18/2023) Social Connections How often do you feel lonely or isolated from those around you? (Adult - for ages 18 years and over): Not on file Housing Stability: Not on file PMH: Past Medical History: Diagnosis Date Bipolar 1 disorder (HCC) Chronic hepatitis C (HCC) Dyslipidemia, goal LDL below 100 HTN, goal below 130/80 MDD (major depressive disorder), single episode, in partial remission (HCC) Rectal prolapse 08/20/2017 Tobacco use disorder 08/20/2017 Type 2 diabetes mellitus treated without insulin (HCC) Type 2 diabetes, HbA1c goal < 7% (HCC) Past Surgical History: Procedure Laterality Date COLONOSCOPY, DIAGNOSTIC (RECTUM) 07/16/2016 mild non-specific inflammation/COLONOSCOPY FLEXIBLE PROXIMAL DIAGNOSTIC performed by Fabienne Carvajal DO at [facility] HEMORRHOIDECTOMY,EXTERNAL, 2 + COLUMNS 07/08/06 Hemorrhoidectomy by PROCTOPEXY, ABDOMINAL APPROACH N/A 08/20/2017 08/20/2017 PROCTOPEXY FOR RECTAL PROLAPSE ABDOMINAL APPROACH performed [place] Kendrick Daley [place] [facility] [place] Outpatient Medications Medication Sig Dispense Refill amLODIPine Besylate 10 MG Oral Tablet (Norvasc) Take 1 Tablet by mouth in the morning. 90 Tablet 1 Lisinopril 40 MG Oral Tablet Take 1/2 (one-half) tablet by mouth once daily 45 Tablet 1 metFORMIN HCl ER 500 MG Oral Tablet Extended Release 24 Hour (Glucophage XR) Take 2 Tablets by mouth in the morning. 180 Tablet 1 Metoprolol Succinate ER 50 MG [...] CHECK GLUCOSE TWICE DAILY 200 Strip 3 lamoTRIgine (LAMICTAL) 25 MG Tablet Take 1 Tab by mouth 2 times a day. (Patient taking differently:Take 1 Tablet by mouth in the morning.) 180 Tab 3 ONETOUCH DELICA LANCETS FINE MISC Use twice a day 100 Each 11 Blood Glucose Monitoring Suppl (Quincus) w/Device KIT Use up to 4 times a day E11.9 1 Kit 0 Penicillin V Potassium 500 MG Oral Tablet (Veetids) Take 1 Tablet by mouth in the morning and 1 Tablet at noon and 1 Tablet in the evening and 1 Tablet before bedtime. 1 tab every 6 hours for 10 daysfor tooth infection.. (Patient not taking: Reported on 11/18/2023) traMADol HCl 50 MG Oral Tablet (Ultram) Take 1 Tablet by mouth. (Patient not taking: Reported on 11/18/2023) Ventolin HFA 108 (90 Base) MCG/ACT Inhalation [...] taking: Reported on 06/24/2023) 18 g 2 Fluticasone-Salmeterol 250-50 MCG/ACT Inhalation Aerosol Powder Breath Activated (Advair Diskus) Inhale 1 Puff by mouth in the morning and 1 Puff before bedtime. (Patient not taking: Reported on 06/24/2023) 60 Each 5 Diclofenac Sodium 75 MG Oral Tablet Delayed Release (Voltaren) Take 1 Tab by mouth 2 times a day. With food. (Patient not taking: Reported on 11/18/2023) 60 Tab 11 clobetasol propionate (TEMOVATE) 0.05 % ointment Apply to affected areas of hands twice daily as needed for flares (Patient not taking: Reported on 06/24/2023) 60 g 2 No current facility-administered medications for this visit. Review of patient's allergies indicates: Allergen Reactions Percocet Rash Most Recent Immunizations Administered Date(s) Administered Covid-19 Ad26, Single Dose (Carol/J&J) 03/16/2021 HEP A - Hepatitis A (Adult > 18 yrs) 09/23/2017 HepA Inact/HepB Recomb>=18yrs old 07/30/2017 Hepatitis B, 20+ yrs 09/23/2017 Pneumococcal Conjugate Vaccine, 20-valent ([id number]) 09/13/2021 Pneumococcal Polysaccharide PPV23 (Pneumovax) 08/05/2006 Seasonal Influenza, PF, 6 M & above, IM , (FluLaval or Fluzone) 02/25/2022 Seasonal Influenza, Quadrivalent, No Preserve, IM 01/09/2016 Seasonal Influenza, Split, IIV3, With Preserve, Inj 05/12/2014 TDAP (age 10 and older)(Boostrix) 04/01/2017 TDAP, Age 7 and older, IM (Adacel) 08/05/2006 Zoster Vaccine Recombinant (Shingrix) 09/29/2019 Review of Systems: Physical Exam BP 118/78 (BP Site: Left Arm, BP Position: Sitting, BP Cuff Size: Regular) | Pulse 92 | Temp 36.2 C (97.2 F) (Tympanic) | Resp 20 | Wt 69.9 kg (154 lb 3.2 oz) | LMP 11/18/2006 | BMI 27.32 kg/m| BSA 1.76 m Physical Exam Constitutional: Appearance: Normal appearance. HENT: Head: Normocephalic. Cardiovascular: Rate and Rhythm: Normal rate and regular rhythm. Pulmonary: Effort: Pulmonary effort is normal. Breath sounds: Normal breath sounds. Abdominal: General: Bowel sounds are normal. There is no distension. Tenderness: There is no right CVA tenderness or left CVA tenderness. Comments: Discomfort over suprapubic area Musculoskeletal: Cervical back: Neck supple. Skin: General: Skin is warm. Neurological: Mental Status: She is alert and oriented to person, place, and time. Psychiatric: Mood and Affect: Mood normal. Assessment and Plan 1. Dysuria Share decision making Pt prefers to see culture result before starting another dose of abx due to diarrhea - CULTURE, URINE, QUANTITATIVE 2. Type 2 diabetes mellitus with hemoglobin A1c goal of less than 7.0% ([facility]) On metformin and Jardiance Asking if metformin is causing her diarrhea and she should stop Due for A1C and routine f/u is scheduled in few weeks Wrap-Up I have advised the patient to call our office incase of any worsening or new symptoms. A total of 20 minutes were spent with the patient, more than half in [id number] explanation and discussion of the condition and treatment and answering questions. Tasia Farr, MSN, HEARING INSTRUMENT SPECIALIST [facility] Family Medicine documented in this encounter Nursing Notes * Cayden Lim RN - 11/18/2023 4:43 PM EDT Chief Complaint Patient presents with Follow Up [facility] urgent care documented in this encounter Plan of Treatment Upcoming Encounters Date Type Department Care Team (Late st Contact Info) Description 12/23/2023 10:00 AM EDT Office Visit [facility] [address] [place] [address] Mihaela Henriquez CRNP [address] [place] [phone] 07/01/2024 10:00 AM EST Office Visit [facility] [address] [place] [address] Basil Montenegro DO [address] [place] [phone] 07/06/2024 12:00 PM EDT Imaging Radiology [facility] 1st Floor, [place] [address] [place] [address] Pending Results Name Type Priority Associated Diagnoses Date /Time CULTURE, URINE, QUANTITATIVE Lab Routine Dysuria 11/18/2023 4:57 PM EDT Scheduled Procedures Name Priority Associated Diagnoses Date/Ti me COLONOSCOPY FLEXIBLE PROXIMA L DIAGNOSTIC Recall Encounter for screening colonoscopy Health Maintenance Due Date Last Done Comments DISCUSS TOBACCO CESSATION (REFER TO SMARTSET #3298) 1959 HPV/Co-Test 1989 Cologuard 02/11/2004 Fecal Occult [...] Procedure Name Priority Date/Time Associated Diagnosis Comments URINALYSIS, POINT OF CARE [place] 11/18/2023 4:52 PM EDT documented in this encounter Results * (ABNORMAL) URINALYSIS, POINT OF CARE (11/18/2023 4:52 PM EDT) Color, Urine Yellow Light Yellow, Yellow 11/18/2023 4:55 PM EDT [facility] Clarity, Urine Slightly Cloudy(A) Clear 11/18/2023 4:55 PM EDT [facility] Glucose, Urine 500(A) Negative mg/dL 11/18/2023 4:55 PM EDT [facility] Bilirubin, Urine Negative Negative 11/18/2023 4:55 PM EDT [facility] Ketone, Urine Negative Negative mg/dL 11/18/2023 4:55 PM EDT [facility] Specific [place], Urine 1.010 1.003 - 1.030 11/18/2023 4:55 PM EDT [facility] Blood, Urine Trace-intact (A) Negative 11/18/2023 4:55 PM EDT [facility] pH, Urine 6.5 5.0, 5.5, 6.0, 6.5, 7.0, 7.5 units 11/18/2023 4:55 PM EDT [facility] Protein, Urine Negative Negative mg/dL 11/18/2023 4:55 PM EDT [facility] Urobilinogen, Urine 0.2 0.2, 1.0 mg/dL 11/18/2023 4:55 PM EDT [facility] Nitrite, Urine Positive(A) Negative 11/18/2023 4:55 PM EDT [facility] Esterase, Urine Negative Negative 11/18/2023 4:55 PM EDT [facility] Urine 11/18/2023 4:52 PM EDT 11/18/2023 4:55 PM EDT T[facility] VASQUEZ [facility] POINT OF CARE TE ST DOCKED DEVICE UNSOLICITED RESULTS [facility] [address] [place] [phone] documented in this encounter Visit Diagnoses Diagnosis Dysuria- Primary Type 2 diabetes mellitus with hemoglobin A1c goal of less than 7.0% ([facility]) documented in this encounter Advance Directives * [...] Power of Attor abi? No Care Teams Wild Life Photographer Relationship Specialty Start Date End Date Basil Montenegro DO [address] [place] [address] PCP - General Family Medicine 07/13/19 documented as of this encounter"
--- OUTSIDE RECORDS SUMMARY | 2024-04-05 03:15 | External Medical Summary | Summary of Care ---
Author Name Unknown Organization [facility] Address [address] [place] [address] Phone [phone] Care Team Providers Care Coke Still Cleaner Name Role Phone Edgardo Montenegro DO Primary Care Provider Reason for Visit * Reason Onset Date Comments Medication Refill 11/05/2023 Encounter Details Date Type Department Care Team (Late st Contact Info) Description 11/05/2023 Refill [facility] [address] [place] [phone] Edgardo Montenegro DO [address] [place] [phone] HTN, goal below 130/80; Type 2 diabetes mellitus with hemoglobin A1c goal of less than 7.0% ([facility]); Bipolar 1 disorder ([facility]) Allergies Active Allergy Reactions Criticality Noted Date Comments Percocet Rash 07/25/2006 documented as of this encounter (statuses as of 11/06/2023) Medications Medication Sig Dispensed Refills Start Date End Date Status clobetasol propionate (TEMOVATE) 0.05 % ointmentIndicatio ns:Dermatitis,DM type 2 nursing care encounter ([facility]) Apply to affected areas of hands twice daily as needed for flares 60 g 2 04/01/2017 Active Additional Information Patient not taking.Reported on 06/24/2023 Blood Glucose Monitoring Suppl (Nubli VERIO) w/Device KITIndications:DM type 2 nursing care encounter (HCC) Use up to 4 times a day E11.9 1 Kit 04/01/2017 Active Additional Information Patient not taking.Reported on 06/24/2023 ONETOUCH DELICA LANCETS FINE MISC Use twice a day 100 Each 11 06/02/2018 Active Additional Information Patient not taking.Reported on 06/24/2023 lamoTRIgine (LAMICTAL) 25 MG Tablet Take 1 Tab by mouth 2 times a day. 180 Tab 3 09/17/2018 Active Glucose Blood STRPIndications:D M type 2 nursing care encounter (HCC) USE STRIP TO CHECK GLUCOSE TWICE DAILY 200 Strip 3 06/24/2019 Active Additional Information Patient not taking.Reported on 06/24/2023 Diclofenac Sodium 75 MG Oral Tablet Delayed Release (Voltaren)Indicat ions:Lateral meniscus tear Take 1 Tab by mouth 2 times a day. With food. 60 Tab 11 08/16/2020 Active OneTouch Delica Lancets 33G : Use twice a day E11.9 200 Each 3 05/31/2021 Active Additional Information Patient not taking.Reported on 06/24/2023 Albuterol Sulfate HFA 108 (90 Base) MCG/ACT Inhalation Aerosol SolutionIndicatio ns:Chronic bronchitis, unspecified chronic bronchitis type (HCC) Inhale 2 Puffs by mouth every 6 hours as needed for Cough, Shortness of Breath or Wheezing. 18 g 2 10/08/2022 Active Additional Information Patient not taking.Reported on 06/24/2023 Fluticasone-Salme terol 250-50 MCG/ACT Inhalation Aerosol Powder Breath Activated (Advair Diskus)Indication s:Chronic bronchitis, unspecified chronic bronchitis type (HCC) [...] LancetsIndication s:DM type 2 nursing care encounter ([facility]) Check twice a day. E11.9 100 Each 3 07/28/2023 Active OneTouch Verio In Vitro Strip (Glucose Blood)Indications :DM type 2 nursing care encounter ([facility]) Use to check glucose twice daily E11.9 200 Strip 3 07/28/2023 Active Empagliflozin 10 MG Oral Tablet (Jardiance)Indica tions:Type 2 diabetes mellitus with hemoglobin A1c goal of less than 7.0% ([facility]) Take 1 Tablet by mouth in the [...] hemoglobin A1c goal of less than 7.0% ([facility]) Take 2 Tablets by mouth in [...] in the morning. 90 Tablet 11/06/2023 Active amLODIPine Besylate 10 MG Oral Tablet (Norvasc) Take 1 Tablet by mouth in the morning. 90 Tablet 3 11/09/2022 4 Discontinue d(Refill) Venlafaxine HCl ER 150 MG Oral Capsule Extended Release 24 Hour (Effexor XR)Indications:Bi polar 1 disorder (HCC) Take 1 Capsule by mouth in the morning. 90 Capsule 3 11/09/2022 4 Discontinue d(Refill) Venlafaxine HCl ER 75 MG Oral Capsule Extended Release 24 Hour (Effexor XR)Indications:Bi polar 1 disorder (HCC) Take 1 Capsule by mouth in the morning. 90 Capsule 3 11/09/2022 4 Discontinue d(Refill) Metoprolol Succinate ER 50 MG Oral Tablet Extended Release 24 Hour (toPROL XL)Indications:HT N, goal below 130/80 Take 1 Tablet by mouth in the morning. 90 Tablet 3 11/09/2022 4 Discontinue d(Refill) metFORMIN HCl ER 500 MG Oral Tablet Extended Release 24 Hour (Glucophage XR)Indications:Ty pe 2 diabetes mellitus with hemoglobin A1c goal of less than 7.0% (HCC) Take 2 Tablets by mouth in the morning. 180 Tablet 3 11/09/2022 4 Discontinue d(Refill) Lisinopril 40 MG Oral Tablet Take 1/2 (one-half) tablet by mouth once daily 45 Tablet 3 11/09/2022 4 Discontinue d(Refill) Rosuvastatin Calcium 5 MG Oral Tablet (Crestor) Take 1 Tablet by mouth in the morning. 90 Tablet 1 05/17/2023 4 Discontinue d(Refill) documented as of this encounter (statuses as of 11/06/2023) Active Problems Problem Noted Date Diagnosed Date [...] as of this encounter (statuses as of 11/06/2023) Resolved Problems Problem Noted Date Diagnosed Date [...] as of this encounter (statuses as of 11/06/2023) Immunizations Name Administration Dates Next Due Covid-19 Ad26, Single Dose (Carol/J&J) 03/16/2021,08/25/2020 HEP A - Hepatitis A (Adult > 18 yrs) 09/23/2017 HepA Inact/HepB Recomb>=18yrs old 07/30/2017 Hepatitis B, 20+ yrs 09/23/2017,05/12/19 15,09/08/2013,05/24 Pneumococcal Conjugate Vacci ne, 20-valent ([id number]) 09/13/2021 Pneumococcal Polysaccharide PPV23 (Pneumovax) 08/05/2006 Seasonal [...] encounter Miscellaneous Notes * Telephone Encounter - Leslie Bree, [facility] - 11/06/2023 9:11 AM EDTSigned Prescriptions: Disp Refills Rosuvastatin Calcium 5 MG Oral Tablet (Cre*90 Tab*1 Sig: Take 1 Tablet by mouth in the morning. Authorizing Provider: EDGARDO MONTENEGRO Ordering User: LESLIE, BREE Metoprolol Succinate ER 50 MG Oral Tablet *90 Tab*1 Sig: Take 1 Tablet by mouth in the morning. Authorizing Provider: EDGARDO MONTENEGRO Ordering User: LESLIE, BREE metFORMIN HCl ER 500 MG Oral Tablet Extend*180 Ta*1 Sig: Take 2 Tablets by mouth in the morning. Authorizing Provider: EDGARDO MONTENEGRO Ordering User: LESLIE, BREE Lisinopril 40 MG Oral Tablet 45 Tab*1 Sig: Take 1/2 (one-half) tablet by mouth once daily Authorizing Provider: EDGARDO MONTENEGRO Ordering User: HAWK NELSONHA Venlafaxine HCl ER 150 MG Oral Capsule Ext*90 Cap* 1 Sig: Take 1 Capsule by mouth in the morning. Authorizing Provider: EDGARDO MONTENEGRO Ordering User: BREE NELSON Venlafaxine HCl ER 75 MG Oral Capsule Exte*90 Cap*1 Sig: Take 1 Capsule by mouth in the morning. Authorizing Provider: EDGARDO MONTENEGRO Ordering User: BREE NELSON amLODIPine Besylate 10 MG Oral Tablet (Nor*90 Tab*1 Sig: Take 1 Tablet by mouth in the morning. Au thorizing Provider: EDGARDO MONTENEGRO Ordering User: BREE NELSON * Telephone Encounter - Bree Nelson RPh - 11/06/2023 9:10 AM EDT Provided 90 days supply with 1 refill(s). Per refill protocol patient should have BMP on file within past year. Reviewed AMP report, Care Gaps/Health Maintenance, medications list, and for any routine labs typically ordered for this patient. Lab orders placed. Please contact patient to advise of labs ordered for blood draw. Fasting is not required. Advise toobtain labs before requesting the next refill. Thanks, Bree Nelson PharmD Clinical Pharmacist [facility] [phone] 11/06/2023, 9:10 AM * Telephone Encounter - Kasey Vivas CPhT - 11/05/2023 9:31 AM EDT Did you pend patient's preferred pharmacy and medication before forwarding?yes [facility] [id number] [facility] Pending Prescriptions: Disp Refills Rosuvastatin Calcium 5 MG Oral Tablet (Cr*90 Tab*1 Sig: Take 1 Tablet by mouth in the morning. Metoprolol Succinate ER 50 MG Oral Tablet*90 Tab*3 Sig: Take 1 Tablet by mouth in the morning. metFORMIN HCl ER 500 MG Oral Tablet Exten*180 Ta*3 Sig: Take 2 Tablets by mouth in the morning. Lisinopril 40 MG Oral Tablet 45 Tab*3 Sig: Take 1/2 (one-half) tablet by mouth once daily Last Visit: 06/24/2023 (in office), Visit date not found (telemedicine) Next Visit: 12/23/2023 If no future appointments scheduled, and last appointment is greater than a year ago, please schedule patient for a follow-up appointment Last date the medication was ordered: 11/09/22,05/17/23 Is this request for a controlled substance?No Urine Drug Screen: Results for orders placed or performed in visit on 07/15/17 TOX SCREEN, URINE, W/ CONFIRMATION Result Value Amphetamine NEGATIVE Barbiturates NEGATIVE Benzodiazepines NEGATIVE Cannabinoids POSITIVE (A) Cocaine Metabolite NEGATIVE Morphine / Codeine NEGATIVE METHADONE METABOLITE NEGATIVE OXYCODONE NEGATIVE TOX COMMENT THE ABOVE SCREENING RESULTS ARE PRESUMPTIVE AND CAN ONLY BE USED FOR MEDICAL PURPOSES. POSITIVE RESULTS REFLEX TO CONFIRMATORY TESTING. Cutoff Concentration Patient Phone Numbers [employer] [phone] Labs: Lab Results Component Value Date/Time CREAT 0.6 10/08/2022 04:43 PM CREAT 0.8 01/18/2020 01:18 PM POTASSIUM 4.1 10/08/2022 04:43 PM POTASSIUM 4.4 01/18/2020 01:18 PM TSH 0.76 01/18/2020 01:18 PM LDLCALC 83 06/24/2023 02:13 PM LDLCALC 72 01/18/2020 01:18 PM LDLDIRECT NOT APPLICABLE 01/18/2020 01:18 PM LDLDIRECT 96 08/27/2016 09:33 AM ALT 14 02/25/2022 12:41 PM ALT 20 01/18/2020 01:18 PM HGBA1C 8.0 (H) 06/24/2023 02:13 PM HGBA1C 7.2 (H) 01/18/2020 01:18 PM documented in this encounter Plan of Treatment Upcoming Encounters Date Type Department Care Team (Late st Contact Info) Description 12/23/2023 10:00 AM EDT Office Visit [facility] [address] [place] [address] Mihaela Henriquez CRNP [address] [place] [phone] 07/01/2024 10:00 AM EST Office Visit Family Practice [facility] [address] [place] [address] Edgardo Montenegro DO [address] [place] [phone] 07/06/2024 12:00 PM EDT Imaging Radiology [facility] 1st [facility] [address] [place] [address] Scheduled Procedures Name Priority Associated Diagnoses Date/Ti me COLONOSCOPY FLEXIBLE PROXIMA L DIAGNOSTIC Recall Encounter for screening colonoscopy Health Maintenance Due Date Last Done Comments DISCUSS TOBACCO CESSATION (REFER TO SMARTSET #[id number]) 1959 HPV/Co-Test 1989 Cologuard 02/11/2004 Fecal Occult [...] as of this encounter Visit Diagnoses Diagnosis HTN, goal below 130/80 Unspecified essential hypertension Type 2 diabetes mellitus with hemoglobin A1c goal of less than 7.0% (HCC) Bipolar 1 disorder (HCC) Bipolar I disorder, most recent episode (or current) unspecified documented in this encounter Advance Directives * [...] Power of Attor abi? No Care Teams Coke Still Cleaner Relationship Specialty Start Date End Date Edgardo Montenegro DO [address] [place] [phone] PCP - General Family Medicine 07/13/19 documented as of this encounter
--- OUTSIDE RECORDS SUMMARY | 2024-04-05 03:15 | External Medical Summary | Summary of Care ---
Author Name Unknown Organization [facility] Address [address] [place] [address] Phone [phone] Care Team Providers Care Pathology Collector Name Role Phone Edgardo Montenegro DO Primary Care Provider Reason for Visit * Reason Onset Date Comments Medication Refill 11/05/2023 Encounter Details Date Type Department Care Team (Late st Contact Info) Description 11/05/2023 Refill Family [facility] [address] [place] [phone] Edgardo Montenegro DO [address] [place] [phone] HTN, goal below 130/80; Type 2 diabetes mellitus with hemoglobin A1c goal of less than 7.0% ([facility]); Bipolar 1 disorder ([facility]) Allergies Active Allergy Reactions Criticality Noted Date Comments Percocet Rash 07/25/2006 documented as of this encounter (statuses as of 11/13/2023) Medications Medication Sig Dispensed Refills Start Date End Date Status clobetasol propionate (TEMOVATE) 0.05 % ointmentIndicatio ns:Dermatitis,DM type 2 nursing care encounter ([facility]) Apply to affected areas of hands twice daily as needed for flares 60 g 2 04/01/2017 Active Additional Information Patient not taking.Reported on 06/24/2023 Blood Glucose Monitoring Suppl (Jambool VERIO) w/Device KITIndications:DM type 2 nursing care [...] LancetsIndication s:DM type 2 nursing care encounter ([facility]) Check twice a day. E11.9 100 Each 3 07/28/2023 Active OneTouch Verio In Vitro Strip (Glucose Blood)Indications :DM type 2 nursing care encounter ([facility]) Use to check glucose twice [...] less than 7.0% ([facility]) Take 2 Tablets by mouth [...] as of this encounter (statuses as of 11/13/2023) Active Problems Problem Noted Date Diagnosed Date [...] as of this encounter (statuses as of 11/13/2023) Resolved Problems Problem Noted Date Diagnosed Date [...] as of this encounter (statuses as of 11/13/2023) Immunizations Name Administration Dates Next Due Covid-19 Ad26, Single Dose (Carol/J&J) 03/16/2021,08/25/2020 HEP A - Hepatitis A (Adult > 18 yrs) 09/23/2017 HepA Inact/HepB Recomb>=18yrs old 07/30/2017 Hepatitis B, 20+ yrs 09/23/2017,05/12/19 15,09/08/2013,05/24 Pneumococcal Conjugate Vacci ne, 20-valent ([id number]) 09/13/2021 Pneumococcal Polysaccharide PPV23 (Pneumovax) 08/05/2006 Seasonal [...] (15 years old or older) No 08/21/19 Cognitive Status Response Date of Assessm ent Because of a physical, menta l, or emotional condition, do you have serious difficulty concentrating, remembering, or making decisions? (5 years old or older) No 08/20/2017 documented as of this encounter Miscellaneous Notes * Telephone Encounter - Martinez Collier - 11/13/2023 7:22 AM EDT Received message from [facility] regarding patient needing labs. Patient was notified. Successfully contacted patient and provided [facility] message. * Telephone Encounter - Bree Nelson RPh - 11/06/2023 9:11 AM EDTSigned Prescriptions: Disp Refills Rosuvastatin Calcium 5 MG Oral Tablet (Cre*90 Tab*1 Sig: Take 1 Tablet by mouth in the morning. Authorizing Provider: EDGARDO MONTENEGRO Ordering User: BREE NELSON Metoprolol Succinate ER 50 MG Oral Tablet *90 Tab*1 Sig: Take 1 Tablet by mouth in the morning. Authorizing Provider: EDGARDO MONTENEGRO Ordering User: BREE NELSON metFORMIN HCl ER 500 MG Oral Tablet Extend*180 Ta*1 Sig: Take 2 Tablets by mouth in the morning. Authorizing Provider: EDGARDO MONTENEGRO Ordering User: BREE NELSON Lisinopril 40 MG Oral Tablet 45 Tab*1 Sig: Take 1/2 (one-half) tablet by mouth once daily Authorizing Provider: EDGARDO MONTENEGRO Ordering User: LESLIEHAWKHA Venlafaxine HCl ER 150 MG Oral Capsule Ext*90 Cap* 1 Sig: Take 1 Capsule by mouth in the morning. Authorizing Provider: EDGARDO MONTENEGRO Ordering User: LESLIEHAWKHA Venlafaxine HCl ER 75 MG Oral Capsule [...] labs before requesting the next refill. Thanks, Nabeel CutlerD Clinical Pharmacist [facility] [phone] 11/06/2023, 9:10 AM * Telephone Encounter - Kasey Vivas CPhT - 11/05/2023 9:31 AM EDT Did you pend patient's preferred pharmacy and medication before forwarding?yes Pharmacy: [facility] [address] [address] [place] Pending Prescriptions: Disp Refills Rosuvastatin Calcium 5 [...] CONFIRMATORY TESTING. Cutoff Concentration Patient Phone Numbers PubNub [phone] Labs: Lab Results Component Value Date/Time CREAT [...] Description 12/23/2023 10:00 AM EDT Office Visit [facility] [address] [place] [address] Mihaela Henriquez CRNP [address] [place] [address] 07/01/2024 10:00 AM EST Office Visit [facility] [address] [place] [address] Edgardo Montenegro DO [address] [place] [phone] 07/06/2024 12:00 PM EDT Imaging Radiology [facility] [address] [place] [phone] Scheduled Procedures Name Priority Associated Diagnoses Date/Ti me COLONOSCOPY FLEXIBLE PROXIMA L DIAGNOSTIC Recall Encounter for screening colonoscopy Health Maintenance Due Date Last Done Comments DISCUSS TOBACCO CESSATION (REFER TO SMARTSET #9093) 1959 HPV/Co-Test 1989 Cologuard 02/11/2004 Fecal Occult [...] Power of Attor abi? No Care Teams Pathology Collector Relationship Specialty Start Date End Date Edgardo Montenegro DO [address] [place] [phone] PCP - General Family Medicine 07/13/19 documented as of this encounter
--- OUTSIDE RECORDS SUMMARY | 2024-04-05 03:15 | External Medical Summary | Summary of Care ---
Author Name Unknown Organization [facility] Address [address] [place] [address] Phone [phone] Care Team Providers Care Auditing Specialist Name Role Phone Basil Montenegro DO Primary Care Provider Reason for Visit * Reason Onset Date Comments Health Maintenance 11/07/2023 Encounter Details Date Type Department Care Team ([facility] st Contact Info) Description 11/07/2023 Telephone Family Practice [facility] [address] [place] [address] Basil Montenegro DO [address] [facility] [place] [phone] Health Maintenance Allergies Active Allergy Reactions Criticality Noted Date Comments Percocet Rash 07/25/2006 documented as of this encounter (statuses as of 11/07/2023) Medications Medication Sig Dispensed Refills Start Date [...] goal of less than 7.0% ([facility]) Take 1 Tablet by mouth [...] goal of less than 7.0% ([facility]) Take 2 Tablets by mouth [...] as of this encounter (statuses as of 11/07/2023) Active Problems Problem Noted Date Diagnosed Date [...] as of this encounter (statuses as of 11/07/2023) Resolved Problems Problem Noted Date Diagnosed Date [...] as of this encounter (statuses as of 11/07/2023) Immunizations Name Administration Dates Next Due Covid-19 Ad26, Single Dose (Carol/J&J) 03/16/2021,08/25/2020 HEP A - Hepatitis A (Adult > 18 yrs) 09/23/2017 HepA Inact/HepB Recomb>=18yrs old 07/30/2017 Hepatitis B, 20+ yrs 09/23/2017,05/12/19 15,09/08/2013,05/24 Pneumococcal Conjugate Vacci ne, 20-valent ([id number]) 09/13/2021 Pneumococcal Polysaccharide PPV23 (Pneumovax) 08/05/2006 Seasonal [...] encounter Miscellaneous Notes * Telephone Encounter - Elizabeth Billingsley LPN - 11/07/2023 8:51 AM EDT Care Gaps Comprehensive Care Outreach Last Office/Telemedicine Visit: 06/24/2023 (in office), Visit date not found (telemedicine) Next Office Visit: 12/23/2023 Hemoglobin AIC Results: Lab Results Component Value Date/Time HEMOGLOBIN A1C - [facility] 8.0 (H) 06/24/2023 02:13 PM HEMOGLOBIN A1C - [facility] 7.5 (H) 10/08/2022 04:43 PM HEMOGLOBIN A1C - [facility] 7.2 (H) 02/25/2022 12:41 PM HEMOGLOBIN A1C - [facility] 7.2 (H) 01/18/2020 01:18 PM HEMOGLOBIN A1C - [facility] 6.6 (H) 06/02/2018 02:45 PM HEMOGLOBIN A1C - [facility] 5.8 04/01/2017 11:45 AM BP Readings from Last 1 Encounters: 06/24/23 126/86 Reviewed Health Maintenance below: Health Maintenance Topic Date Due DISCUSS TOBACCO CESSATION (REFER TO SMARTSET #3291) Never done COVID-19 Vaccine ( season) 2022 Cervical Cancer Screening 01/17/2023 *COPD SEVERITY VERIFIED BY PFT Never done GFR 10/09/2023 HbA1c 12/23/2023 Influenza Vaccine (FLU shot) (1) 12/28/2023 Diabetic Eye Exam 03/07/2024 Labs already ordered pap Care Gap Outreach Action Taken: Outreach not indicated documented in this encounter Plan of Treatment Upcoming Encounters Date Type Department Care Team (Late st Contact Info) Description 12/23/2023 10:00 AM EDT Office Visit [facility] [address] [place] [address] Mihaela Henriquez CRNP [address] [place] [phone] 07/01/2024 10:00 AM EST Office Visit [facility] [address] [place] [address] Basil Montenegro DO [address] [place] [phone] 07/06/2024 12:00 PM EDT Imaging Radiology [address] [place] [address] Scheduled Procedures Name Priority Associated Diagnoses Date/Ti me COLONOSCOPY FLEXIBLE PROXIMA L DIAGNOSTIC Recall Encounter for screening colonoscopy Health Maintenance Due Date Last Done Comments DISCUSS TOBACCO CESSATION (REFER TO SMARTSET #4551) 1959 HPV/Co-Test 1989 Cologuard 02/11/2004 Fecal Occult [...] Power of Attor abi? No Care Teams Auditing Specialist Relationship Specialty Start Date End Date Basil Montenegro DO [address] [place] [address] PCP - General Family Medicine 07/13/19 documented as of this encounter
[2024-04-05 06:12] LABS: ANTI-Xa, UFH(UnfractionatedHep 0.24 IU/ml (0.3-0.7)
[2024-04-05 08:22] LABS: BUN Creatinine Ratio 31.4 (10-20); Calcium 9.3 mg/dl (8.6-10.3); Creatinine Clr Calc Pharmacy 100.5 ml/min; Potassium 4.3 mmol/L (3.5-5.1)
[2024-04-05 08:33] LABS: Basophils # (auto) 0.03 K/uL (0.00-0.20); Basophils % (auto) 0.4 %; Eosinophils # (auto) 0.09 K/uL (0.00-0.50); Eosinophils % (auto) 1.2 %; Hematocrit (blood only) 46.2 % (37.0-47.0); Hemoglobin 15.7 g/dl (12.0-16.0); Immature Granulocytes # (auto) 0.03 K/uL (0.01-0.20); Immature Granulocytes % (auto) 0.4 %; Lymphocytes # (auto) 1.98 K/uL (1.20-3.40); Lymphocytes % (auto) 26.1 %; Mean Corpuscular Hemoglobin 30.5 pg (25.0-34.0); Mean Corpuscular Volume 89.7 fL (80.0-100.0); Mean Platelet Volume 11.7 fL (9.4-12.4); Monocytes # (auto) 0.58 K/uL (0.11-0.59); Monocytes % (auto) 7.6 %; Neutrophils # (auto) 4.88 K/uL (1.40-6.50); Neutrophils % (auto) 64.3 %; Platelet Count 291 K/uL (130-400); RDW Coefficient of Variation 12.3 % (11.5-14.5); RDW Standard Deviation 40.6 fL (36.4-46.3); Red Blood Count 5.15 M/uL (4.20-5.40); White Blood Count 7.59 K/ul (4.8-10.8)
--- NOTE | 2024-04-05 09:32 | Hospitalist Progress Note ---
Date of Service April 05, 2024 Assessment & Plan (1) NSTEMI (non-ST elevated myocardial infarction): Plan: Patient presented to the hospital with chest pain for the last couple of days High-sensitivity troponin was 15 on admission; up trended to 8630 and down trended. EKG shows normal sinus rhythm; no ST or T wave changes Echocardiogram shows EF of 60 to 65% with grade 1 diastolic dysfunction Continue on heparin drip, aspirin, rosuvastatin, lisinopril and metoprolol Plan for left heart cath today. (2) Hypertension, essential: Plan: Blood pressure is stable, continue with amlodipine 10 mg daily, lisinopril 20 mg daily and Toprol-XL 50 mg daily. (3) Bipolar 1 disorder: Plan: Continue with Effexor extended release to 25 mg daily. (4) Mixed hyperlipidemia: Plan: Continue with Crestor 5 mg daily. Plan Full code DVT prophylaxis heparin Time spent evaluating patient, direct bedside care, chart review, placing orders, interpretation of diagnostic studies, discussion with consultants, patient, and family members, as well as other required patient management activities is 50 minutes Please note the above document was generated using voice recognition software. It may contain grammatical, syntax or spelling errors. Any formal questions or concerns about the content, text or information contained within the body of this dictation should be directly addressed to the provider for clarification Admission and Anticipated Discharge Date Admission Date: April 03, 2024 Subjective Patient seen and examined at bedside. Comfortable; not in distress. No significant overnight events Review of Systems Review of Systems: All systems reviewed & are unremarkable except as noted in Subjective Physical Exam Physical Exam: Constitutional: WD/WN, vitals as above, NAD, sitting up in bed, pleasant, conversing easily Respiratory: normal respiratory effort, lungs clear to auscultation, no wheeze, rales, rhonchi. Normal insp/exp effort, no accessory muscle use Cardiovascular: RRR, no murmur, no edema Vessels: no JVD or carotid bruit Chest: normal inspection of chest Abdomen: normal bowel sounds, soft, nontender, no hepatosplenomegaly Musculoskeletal: no cyanosis or clubbing, extremities motor strength 5/5 Skin: no rashes, warm and dry normal turgor Neurologic: PERRL, EOMI, accommodation nl, no face palsy, no dysarthria CN's II- XI intact bilaterally and moves all extremities Psychiatric: A+Ox3, euthymic affect Results & Data Results & Data Vital Signs (Past 12 Hours) Vital Signs Temp Pulse Pulse Resp BP Pulse Ox O2 Del Method 04/05/24 07:41 36.7 C 73 16 126/88 93 Room Air 04/05/24 03:54 36.7 C 67 20 128/80 92 Room Air 04/04/24 23:42 63 04/04/24 23:34 Room Air 04/04/24 23:24 36.5 C 68 16 146/89 H 94 Room Air
--- NOTE | 2024-04-05 09:35 | Electrocardiogram Report ---
Test Reason : Blood Pressure : */* mmHG Vent. Rate : 66 BPM Atrial Rate : 66 BPM P-R Int : 148 ms QRS Dur : 66 ms QT Int : 434 ms P-R-T Axes : 58 84 83 degrees QTcB Int : 454 ms Normal sinus rhythm with sinus arrhythmia Possible Old Septal infarct Abnormal ECG When compared with ECG of 04-Apr-2024 05:58, Borderline Criteria for Septal infarct is now Present Confirmed by Loi Becerra ([id number]) on 04/05/2024 9:34:46 AM Referred By: REFERRED SELF Confirmed By: Loi Becerra
[2024-04-05] MEDS: fentaNYL citrate PF 100 MCG/2 ML VIAL ONE ×2 (12:02→15:07)
[2024-04-05] MEDS: MIDAZOLAM HCL 1 MG/ML 2ML VIAL ONE ×2 (12:02→15:01)
[2024-04-05] MEDS: HEPARIN (PORCINE) 1000 UNIT/ML 10 ML (CATH LAB USE ONLY) ONE ×2 (12:03→15:07)
[2024-04-05] MEDS: OPTIRAY 350 ONE ×2 (12:04→15:01)
[2024-04-05] MEDS: NITROGLYCERIN/D5W 100MCG/ML 20ML SYR ONE ×2 (12:05→14:55)
[2024-04-05] MEDS: niCARdipine 2,000 MCG/20 ML SYR ONE ×2 (12:05→14:54)
[2024-04-05] MEDS: diphenhydrAMINE 50 MG/ML VIAL ONE ×2 (12:05→14:55)
--- NOTE | 2024-04-05 12:23 | Post Anesthesia Assessment ---
Date of Service April 05, 2024 Post Sedation Assessment Vital Signs Temp Pulse Pulse Pulse Resp BP BP 04/05/24 12:10 80 16 118/87 04/05/24 12:01 36.5 C 71 16 130/67 04/05/24 10:03 83 16 130/93 04/05/24 08:00 80 04/05/24 08:00 04/05/24 07:41 36.7 C 73 16 126/88 04/05/24 03:54 36.7 C 67 20 128/80 04/04/24 23:42 63 04/04/24 23:34 04/04/24 23:24 36.5 C 68 16 146/89 H 04/04/24 19:12 36.8 C 67 18 134/83 04/04/24 17:06 36.3 C L 72 18 132/89 04/04/24 15:03 70 Pulse Ox O2 Del Method 04/05/24 12:10 93 Room Air 04/05/24 12:01 98 Room Air 04/05/24 10:03 94 Room Air 04/05/24 08:00 04/05/24 08:00 Room Air 04/05/24 07:41 93 Room Air 04/05/24 03:54 92 Room Air 04/04/24 23:42 04/04/24 23:34 Room Air 04/04/24 23:24 94 Room Air 04/04/24 19:12 93 Room Air 04/04/24 17:06 94 Room Air 04/04/24 15:03 Recovery Score Activity: Moves 4 extremities Respiration: Deep Breath/Cough Circulation: +/-20% PreAnes Value Consciousness: Fully Awake Oxygen Saturation: > 92% On Room Air Post Anesthesia Score: 10 Discharge Sedation Level of Care: Fast Track Phase II Post Sedation Plan On clinical assessment, the patient appears to have tolerated the sedation without complications. Patient is recovering as anticipated. Patient will continue to be monitored by nursing and may be discharged when sedation discharge criteria are met per below protocol. Upon Completions of procedure up to 15 minutes continue every 5 minute vital signs and the P.A.R. score; then discharge to a Phase I or Fast Track to Phase II per the following guidelines: * Discharge Patient to appropriate Phase II area if PAR is 8 or greater or return to pre- procedure baseline. The post - procedure orders will be as directed. * If PAR score is less than 8 or not return to pre-procedure baseline then patient will follow Phase I monitoring till PAR is reached for Phase II. The Phase I may be done in procedure room or may call to secure a Phase I area. * If naloxone or flumazenil are used for reversal, hold in Phase I for continued monitoring from when last reversal dose was given for a minimum of 60 minutes or longer pending the nurse and/or physician discretion of patient condition before discharge to Phase II. Please call the Sedation Physician to re-evaluate and complete post-note for discharge to Phase II area. Do NOT discharge from procedure sedation or Phase 1 until post- sedation evaluation note is complete by procedure /sedation MD Sedation Discharge Instructions to be given to the patient at discharge to home. [facility] [place] Procedure Codes (Charges) Indication for Procedure Indication for procedure: NSTEMI Sedation/Anesthesia Procedure 1: Sedation/Anesthesia: 38156 Mod Sedation by the same physician;Init15 Min Child Age 5 & Up (Initial 15 minutes, start time 1148, end time 1202)
--- NOTE | 2024-04-05 12:23 | Pre Anesthesia Assessment ---
Date of Service April 05, 2024 Pre Sedation Assessment Vital Signs Temp Pulse Pulse Pulse Resp BP BP 04/05/24 12:10 80 16 118/87 04/05/24 12:01 36.5 C 71 16 130/67 04/05/24 10:03 83 16 130/93 04/05/24 08:00 80 04/05/24 08:00 04/05/24 07:41 36.7 C 73 16 126/88 04/05/24 03:54 36.7 C 67 20 128/80 04/04/24 23:42 63 04/04/24 23:34 04/04/24 23:24 36.5 C 68 16 146/89 H 04/04/24 19:12 36.8 C 67 18 134/83 04/04/24 17:06 36.3 C L 72 18 132/89 04/04/24 15:03 70 Pulse Ox O2 Del Method 04/05/24 12:10 93 Room Air 04/05/24 12:01 98 Room Air 04/05/24 10:03 94 Room Air 04/05/24 08:00 04/05/24 08:00 Room Air 04/05/24 07:41 93 Room Air 04/05/24 03:54 92 Room Air 04/04/24 23:42 04/04/24 23:34 Room Air 04/04/24 23:24 94 Room Air 04/04/24 19:12 93 Room Air 04/04/24 17:06 94 Room Air 04/04/24 15:03 Cardiovascular RRR, no murmur, no edema Respiratory normal respiratory effort, lungs clear to auscultation Pre-Sedation Airway Assessment Smoking Status: Current every day smoker Hx Sleep Apnea: No Short, Thick Neck: No Thyromental Distance: > or= 3.5 Finger Breadths Oral Cavity: + Dentures Mallampati Class: III ASA: ASA3 NPO Status Date of Last Intake of Fluids: 04/05/24 Time of Last Intake of Fluids: 08:00 Date of Last Intake of Solid Food: 04/04/24 Time of Last Intake of Solid Foods: 23:00 Notes The planned sedation has been discussed with the patient. Informed Consent was obtained. I have identified the patient, determined the appropriateness of sedation and have assessed the patient immediately prior to the procedure. All medicine(s) and interventions are by my order.
[2024-04-05] MEDS: NITROGLYCERIN SL 0.4 MG/TAB TAB SL PRN (12:30)
[2024-04-05] MEDS: NITROGLYCERIN 2% OINTMENT 30GM TUBE EXT SCH (13:29)
--- NOTE | 2024-04-05 13:30 | Cardiology Progress Note ---
Date of Service April 05, 2024 Assessment & Plan (1) NSTEMI (non-ST elevated myocardial infarction): (2) Chest pain: (3) HTN (hypertension): Plan * Recurrent chest pain post diagnostic coronary angiography * Repeat EKG with findings of SR , age undetermined septal infarct pattern in lead V2 and T wave inversions in leads I and aVL that would correlated with the culprit diagonal stenosis and is unchanged compared to tracing obtained this am. * Keep NPO. Start topical nitroglycerin. * SBP 104 mm Hg, HR 60s, no no room to titrate beta thang or give additional IV dose * Case reviewed with interventional cardiology by phone. Will likely need to return to the catheterization lab for PCI of diagonal, perhaps today. Admission and Anticipated Discharge Date Admission Date: April 03, 2024 Subjective Patient seen in cardiology follow up. Patient underwent cardiac catheterization today and was found to have a culprit high grade stenosis of diagonal 1 branch of the LAD. The diagonal was a small vessel. Initial plan had been for a trial of medical therapy , and if refractory, proceed with PCI, perhaps vessel could accommodate a 2 mm stent. Patient has since arrived back at PCU with noted recurrent 5/10 chest pain / pressure. Worse than her presenting symptoms that persisted after restarting IV heparin and administering SL nitroglycerin x 2 doses. Physical Exam Physical Exam: General:ill in appearance HEENT: Normocephalic. Atraumatic. PERRL. EOMI. Conjunctiva and sclera clear. NECK: No carotid bruits. No JVD. Carotid upstrokes are brisk. Heart: RRR. S1 and S2 noted. No murmur. No rubs or gallops. PMI non displaced. Lungs: Clear to auscultation. No wheezes. No rhonchi. No rales. Abdomen: Normal bowel sounds. Soft. Nontender. No masses or organomegaly. No abdominal bruits. Extremities: No edema. No clubbing or cyanosis. Pulses: radial=2/4, posterior tibial=2/4, dorsalis pedis = 2/4. NEURO: No focal deficits. PSYCH: Appropriate affect and insight. Results & Data Vital Signs (Past 12 Hours) Vital Signs Temp Pulse Pulse Pulse Pulse Resp BP 04/05/24 13:04 67 18 104/69 04/05/24 12:49 36.7 C 77 18 118/82 04/05/24 12:47 37.6 C H 67 18 118/84 04/05/24 12:30 84 16 160/92 H 04/05/24 12:10 80 16 118/87 04/05/24 12:01 36.5 C 71 16 04/05/24 10:03 83 16 04/05/24 08:00 80 04/05/24 08:00 04/05/24 07:41 36.7 C 73 16 126/88 04/05/24 03:54 36.7 C 67 20 128/80 BP Pulse Ox O2 Del Method 04/05/24 13:04 92 Room Air 04/05/24 12:49 91 Room Air 04/05/24 12:47 91 Room Air 04/05/24 12:30 93 Room Air 04/05/24 12:10 93 Room Air 04/05/24 12:01 130/67 98 Room Air 04/05/24 10:03 130/93 94 Room Air 04/05/24 08:00 04/05/24 08:00 Room Air 04/05/24 07:41 93 Room Air 04/05/24 03:54 92 Room Air Laboratory Results Cardiac Enzymes 04/04/24 Range/Units 17:28 Troponin I High Sens 4198.2 H* D (0-14) pg/ml CBC 04/05/24 Range/Units 05:39 WBC 7.59 (4.8-10.8) K/ul RBC 5.15 (4.20-5.40) M/uL Hgb 15.7 (12.0-16.0) g/dl Hct 46.2 (37.0-47.0) % Plt Count 291 (130-400) K/uL Neut # (Auto) 4.88 (1.40-6.50) K/uL Lymph # (Auto) 1.98 (1.20-3.40) K/uL [place] # (Auto) 0.58 (0.11-0.59) K/uL Eos # (Auto) 0.09 (0.00-0.50) K/uL Baso # (Auto) 0.03 (0.00-0.20) K/uL Comprehensive Metabolic Panel 04/05/24 Range/Units 05:39 Sodium 138 (136-145) mmol/L Potassium 4.3 (3.5-5.1) mmol/L Chloride 103 (98-107) mmol/L Carbon Dioxide 28 (21-32) mmol/L BUN 16 (6-23) mg/dl Creatinine 0.51 L (0.6-1.2) mg/dl Glucose 166 H (70-99(Fasting)) mg/dl Calcium 9.3 (8.6-10.3) mg/dl Intake and Output 04/04/24 04/05/24 04/05/24 22:59 06:59 14:59 Intake Total 415.217 / 1228.000 79.783 / 1228.000 52.15 / 52.15 Output Total 500 / 900 Balance -84.783 / 328.000 79.783 / 328.000 52.15 / 52.15 Intake: IV 287.217 / 500.000 79.783 / 500.000 52.15 / 52.15 Heparin Sodium/Dextrose 25,000 287.217 / 500.000 79.783 / 500.000 52.15 / 52.15 units In 500 ml @ 1,050 UNITS/ HR 21 mls/hr IV .[id number] [facility] Rx #:[id number] Oral 128 / 728 Output: Urine 500 / 900 Other: # Unmeasured Voids 2 Weight 69.6 kg Weight Measurement Method Built in [facility] (2) Chest pain Chest pain type: chest pain due to myocardial ischemia Ischemic chest pain type: unstable angina pectoris Qualified Code(s): I20.0 - Unstable angina (3) HTN (hypertension) Hypertension type: primary hypertension Qualified Code(s): I10 - Essential (primary) hypertension
[2024-04-05] MEDS: MoRPHine SULFATE 2 MG/ML CARP IV STA (13:50)
--- NOTE | 2024-04-05 14:21 | Pre Anesthesia Assessment ---
Date of Service April 05, 2024 Pre Sedation Assessment Vital Signs Temp Pulse Pulse Pulse Pulse Resp BP 04/05/24 14:08 79 18 119/78 04/05/24 13:34 36.6 C 71 18 04/05/24 13:04 67 18 04/05/24 12:49 36.7 C 77 18 04/05/24 12:47 37.6 C H 67 18 04/05/24 12:30 84 16 04/05/24 12:10 80 16 04/05/24 12:01 36.5 C 71 16 04/05/24 10:03 83 16 04/05/24 08:00 80 04/05/24 08:00 04/05/24 07:41 36.7 C 73 16 04/05/24 03:54 36.7 C 67 20 04/04/24 23:42 63 04/04/24 23:34 04/04/24 23:24 36.5 C 68 16 04/04/24 19:12 36.8 C 67 18 04/04/24 17:06 36.3 C L 72 18 04/04/24 15:03 70 BP BP Pulse Ox O2 Del Method 04/05/24 14:08 92 Room Air 04/05/24 13:34 134/82 Room Air 04/05/24 13:04 104/69 92 Room Air 04/05/24 12:49 118/82 91 Room Air 04/05/24 12:47 118/84 91 Room Air 04/05/24 12:30 160/92 H 93 Room Air 04/05/24 12:10 118/87 93 Room Air 04/05/24 12:01 130/67 98 Room Air 04/05/24 10:03 130/93 94 Room Air 04/05/24 08:00 04/05/24 08:00 Room Air 04/05/24 07:41 126/88 93 Room Air 04/05/24 03:54 128/80 92 Room Air 04/04/24 23:42 04/04/24 23:34 Room Air 04/04/24 23:24 146/89 H 94 Room Air 04/04/24 19:12 134/83 93 Room Air 04/04/24 17:06 132/89 94 Room Air 04/04/24 15:03 Cardiovascular RRR, no murmur, no edema Respiratory normal respiratory effort, lungs clear to auscultation Pre-Sedation Airway Assessment Smoking Status: Current every day smoker Hx Sleep Apnea: No Short, Thick Neck: No Thyromental Distance: > or= 3.5 Finger Breadths Oral Cavity: + WNL Mallampati Class: III ASA: ASA4 patient with recurrent ischemic chest pain symptoms not resolved with heparin and Nitro. Likely ongoing ischemia. plan repeat cath and PCI of diagonal. NPO Status Date of Last Intake of Fluids: 04/05/24 Time of Last Intake of Fluids: 11:00 Date of Last Intake of Solid Food: 04/04/24 Time of Last Intake of Solid Foods: 19:30 Notes The planned sedation has been discussed with the patient. Informed Consent was obtained. I have identified the patient, determined the appropriateness of sedation and have assessed the patient immediately prior to the procedure. All medicine(s) and interventions are by my order. [facility] [place] Procedure Codes (Charges) Indication for Procedure Indication for procedure: ACS
--- NOTE | 2024-04-05 15:07 | Post Anesthesia Assessment ---
Date of Service April 05, 2024 Post Sedation Assessment Vital Signs Temp Pulse Pulse Pulse Pulse Resp BP 04/05/24 14:33 72 04/05/24 14:08 79 18 119/78 04/05/24 13:34 36.6 C 71 18 04/05/24 13:04 67 18 04/05/24 12:49 36.7 C 77 18 04/05/24 12:47 37.6 C H 67 18 04/05/24 12:30 84 16 04/05/24 12:10 80 16 04/05/24 12:01 36.5 C 71 16 04/05/24 10:03 83 16 04/05/24 08:00 80 04/05/24 08:00 04/05/24 07:41 36.7 C 73 16 04/05/24 03:54 36.7 C 67 20 04/04/24 23:42 63 04/04/24 23:34 04/04/24 23:24 36.5 C 68 16 04/04/24 19:12 36.8 C 67 18 04/04/24 17:06 36.3 C L 72 18 BP BP Pulse Ox O2 Del Method 04/05/24 14:33 04/05/24 14:08 92 Room Air 04/05/24 13:34 134/82 Room Air 04/05/24 13:04 104/69 92 Room Air 04/05/24 12:49 118/82 91 Room Air 04/05/24 12:47 118/84 91 Room Air 04/05/24 12:30 160/92 H 93 Room Air 04/05/24 12:10 118/87 93 Room Air 04/05/24 12:01 130/67 98 Room Air 04/05/24 10:03 130/93 94 Room Air 04/05/24 08:00 04/05/24 08:00 Room Air 04/05/24 07:41 126/88 93 Room Air 04/05/24 03:54 128/80 92 Room Air 04/04/24 23:42 04/04/24 23:34 Room Air 04/04/24 23:24 146/89 H 94 Room Air 04/04/24 19:12 134/83 93 Room Air 04/04/24 17:06 132/89 94 Room Air Recovery Score Activity: Moves 4 extremities Respiration: Deep Breath/Cough Circulation: +/-20% PreAnes Value Consciousness: Fully Awake Oxygen Saturation: > 92% On Room Air Post Anesthesia Score: 10 Discharge Sedation Level of Care: Fast Track Phase II Post Sedation Plan On clinical assessment, the patient appears to have tolerated the sedation without complications. Patient is recovering as anticipated. Patient will continue to be monitored by nursing and may be discharged when sedation discharge criteria are met per below protocol. Upon Completions of procedure up to 15 minutes continue every 5 minute vital signs and the P.A.R. score; then discharge to a Phase I or Fast Track to Phase II per the following guidelines: * Discharge Patient to appropriate Phase II area if PAR is 8 or greater or return to pre- procedure baseline. The post - procedure orders will be as directed. * If PAR score is less than 8 or not return to pre-procedure baseline then patient will follow Phase I monitoring till PAR is reached for Phase II. The Phase I may be done in procedure room or may call to secure a Phase I area. * If naloxone or flumazenil are used for reversal, hold in Phase I for continued monitoring from when last reversal dose was given for a minimum of 60 minutes or longer pending the nurse and/or physician discretion of patient condition before discharge to Phase II. Please call the Sedation Physician to re-evaluate and complete post-note for discharge to Phase II area. Do NOT discharge from procedure sedation or Phase 1 until post- sedation evaluation note is complete by procedure /sedation MD Sedation Discharge Instructions to be given to the patient at discharge to home.
[2024-04-05] MEDS: TICAGRELOR 90 MG TAB ONE (15:08)
--- NOTE | 2024-04-05 15:23 | Electrocardiogram Report ---
Test Reason : Blood Pressure : */* mmHG Vent. Rate : 68 BPM Atrial Rate : 68 BPM P-R Int : 138 ms QRS Dur : 74 ms QT Int : 468 ms P-R-T Axes : 55 92 98 degrees QTcB Int : 497 ms Normal sinus rhythm Rightward axis Old Septal infarct (cited on or before 05-Apr-2024) Abnormal ECG When compared with ECG of 05-Apr-2024 05:43, No significant change Confirmed by Loi Becerra ([id number]) on 04/05/2024 3:23:18 PM Referred By: REFERRED SELF Confirmed By: Loi Becerra
--- NOTE | 2024-04-05 16:12 | Communication Note ---
Date of Service: April 05, 2024 Patient seen post PCI/stent of the diagonal 1 branch of the LAD. Patient comfortable. No additional angina. Heparin infusing. Updates provided to lucrecia camacho's son, Cecil who is at the bedside. Continue current medications including aspirin and ticagrelor.
[2024-04-05 17:48] LABS: ANTI-Xa, UFH(UnfractionatedHep 0.84 IU/ml (0.3-0.7)
[2024-04-05] MEDS: TICAGRELOR 90 MG TAB PO SCH (20:47)
[2024-04-06 07:58] LABS: Basophils # (auto) 0.04 K/uL (0.00-0.20); Basophils % (auto) 0.3 %; Eosinophils # (auto) 0.07 K/uL (0.00-0.50); Eosinophils % (auto) 0.6 %; Hematocrit (blood only) 48.8 % (37.0-47.0); Hemoglobin 16.6 g/dl (12.0-16.0); Immature Granulocytes # (auto) 0.04 K/uL (0.01-0.20); Immature Granulocytes % (auto) 0.3 %; Lymphocytes # (auto) 1.56 K/uL (1.20-3.40); Lymphocytes % (auto) 12.9 %; Mean Corpuscular Hemoglobin 30.2 pg (25.0-34.0); Mean Corpuscular Volume 88.7 fL (80.0-100.0); Monocytes # (auto) 0.83 K/uL (0.11-0.59); Monocytes % (auto) 6.8 %; Neutrophils % (auto) 79.1 %; Platelet Count 305 K/uL (130-400); RDW Coefficient of Variation 12.6 % (11.5-14.5); White Blood Count 12.14 K/ul (4.8-10.8)
[2024-04-06 08:16] LABS: BUN Creatinine Ratio 35.4 (10-20); Calcium 9.4 mg/dl (8.6-10.3); Creatinine Clr Calc Pharmacy 106.7 ml/min
[2024-04-06 08:29] LABS: ANTI-Xa, UFH(UnfractionatedHep 0.21 IU/ml (0.3-0.7)
--- NOTE | 2024-04-06 09:36 | Hospitalist Progress Note ---
Date of Service April 06, 2024 Assessment & Plan (1) NSTEMI (non-ST elevated myocardial infarction): Plan: Patient presented to the hospital with chest pain for the last couple of days High-sensitivity troponin was 15 on admission; up trended to 8630 and down trended. EKG shows normal sinus rhythm; no ST or T wave changes Echocardiogram shows EF of 60 to 65% with grade 1 diastolic dysfunction Status post PCI of diagonal 1 branch of LAD. Heparin drip is stopped. Continue on aspirin, Brilinta, lisinopril, metoprolol and rosuvastatin Continue on panel monitor (2) Hypertension, essential: Plan: Blood pressure is stable, continue with amlodipine 10 mg daily, lisinopril 20 mg daily and Toprol-XL 50 mg daily. (3) Bipolar 1 disorder: Plan: Continue with Effexor extended release to 25 mg daily. (4) Mixed hyperlipidemia: Plan: Continue with Crestor 5 mg daily. Patient counselled regarding smoking cessation; started on nicotine patch and gum Plan Full code DVT prophylaxis lovenox Please note the above document was generated using voice recognition software. It may contain grammatical, syntax or spelling errors. Any formal questions or concerns about the content, text or information contained within the body of this dictation should be directly addressed to the provider for clarification Admission and Anticipated Discharge Date Admission Date: April 03, 2024 Subjective Patient seen and examined at bedside. He is comfortable; not in distress. Denied any chest pain or discomfort No significant events overnight Review of Systems Review of Systems: All systems reviewed & are unremarkable except as noted in Subjective Physical Exam Physical Exam: Constitutional: WD/WN, vitals as above, NAD, sitting up in bed, pleasant, conversing easily Respiratory: normal respiratory effort, lungs clear to auscultation, no wheeze, rales, rhonchi. Normal insp/exp effort, no accessory muscle use Cardiovascular: RRR, no murmur, no edema Vessels: no JVD or carotid bruit Chest: normal inspection of chest Abdomen: normal bowel sounds, soft, nontender, no hepatosplenomegaly Musculoskeletal: no cyanosis or clubbing, extremities motor strength 5/5 Skin: no rashes, warm and dry normal turgor Neurologic: PERRL, EOMI, accommodation nl, no face palsy, no dysarthria CN's II-XI intact bilaterally and moves all extremities Psychiatric: A+Ox3, euthymic affect Results & Data Results & Data Vital Signs (Past 12 Hours) Vital Signs Temp Pulse Pulse Resp BP BP Pulse Ox 04/06/24 07:45 71 04/06/24 07:45 04/06/24 07:43 36.8 C 84 18 134/84 95 04/06/24 02:43 36.5 C 72 18 142/91 H 93 04/06/24 01:08 04/05/24 23:11 36.6 C 66 18 140/90 94 04/05/24 21:45 67 O2 Del Method 04/06/24 07:45 04/06/24 07:45 Room Air 04/06/24 07:43 Room Air 04/06/24 02:43 Room Air 04/06/24 01:08 Room Air 04/05/24 23:11 Room Air 04/05/24 21:45
--- NOTE | 2024-04-06 09:56 | Cardiology Progress Note ---
Date of Service April 06, 2024 Assessment & Plan (1) NSTEMI (non-ST elevated myocardial infarction): (2) HTN (hypertension): Plan * NSTEMI, diagonal culprit, small vessel, for which patient underwent PCI, placement of a 2 mm x 12 mm [place] drug eluting stent, R femoral artery closure device. * DC UF heparin infusion and start SQ heparin DVT prophylaxis dose. * Continue ASA 81 mg daily (lifelong therapy) * Brilinta for 1 year * Continue metoprolol, lisinopril, amlodipine, Rosuvastatin. * add lipid panel to labs from this am. * Increase activity. Possible DC on 04/07. Admission and Anticipated Discharge Date Admission Date: April 03, 2024 Subjective Patient seen in follow up. Chest pain has resolved. Slight shortness of breath overnight. Telemetry reveals SR and sinus tachycardia up to 106 bpm with occasional PVCs. Physical Exam Physical Exam: General:ill in appearance HEENT: Normocephalic. Atraumatic. PERRL. EOMI. Conjunctiva and sclera clear. NECK: No carotid bruits. No JVD. Carotid upstrokes are brisk. Heart: RRR. S1 and S2 noted. No murmur. No rubs or gallops. PMI non displaced. Lungs: Clear to auscultation. No wheezes. No rhonchi. No rales. Abdomen: Normal bowel sounds. Soft. Nontender. No masses or organomegaly. No abdominal bruits. Extremities: No edema. No clubbing or cyanosis. -Right radial and right femoral artery c atheterization sites are clean, dry, and intact without ecchymosis NEURO: No focal deficits. PSYCH: Appropriate affect and insight. Results & Data Vital Signs (Past 12 Hours) Vital Signs Temp Pulse Pulse Resp BP BP Pulse Ox 04/06/24 07:45 71 04/06/24 07:45 04/06/24 07:43 36.8 C 84 18 134/84 95 04/06/24 02:43 36.5 C 72 18 142/91 H 93 04/06/24 01:08 04/05/24 23:11 36.6 C 66 18 140/90 94 O2 Del Method 04/06/24 07:45 04/06/24 07:45 Room Air 04/06/24 07:43 Room Air 04/06/24 02:43 Room Air 04/06/24 01:08 Room Air 04/05/24 23:11 Room Air Laboratory Results CBC 04/06/24 Range/Units 07:43 WBC 12.14 H (4.8-10.8) K/ul RBC 5.50 H (4.20-5.40) M/uL Hgb 16.6 H (12.0-16.0) g/dl Hct 48.8 H (37.0-47.0) % Plt Count 305 (130-400) K/uL Neut # (Auto) 9.60 H (1.40-6.50) K/uL Lymph # (Auto) 1.56 (1.20-3.40) K/uL [place] # (Auto) 0.83 H (0.11-0.59) K/uL Eos # (Auto) 0.07 (0.00-0.50) K/uL Baso # (Auto) 0.04 (0.00-0.20) K/uL Comprehensive Metabolic Panel 04/06/24 Range/Units 07:43 Sodium 135 L (136-145) mmol/L Potassium 4.0 (3.5-5.1) mmol/L Chloride 100 (98-107) mmol/L Carbon Dioxide 24 (21-32) mmol/L BUN 17 (6-23) mg/dl Creatinine 0.48 L (0.6-1.2) mg/dl Glucose 162 H (70-99(Fasting)) mg/dl Calcium 9.4 (8.6-10.3) mg/dl Intake and Output 04/05/24 04/06/24 04/06/24 22:59 06:59 14:59 Intake Total 229.167 / 736.317 455 / 736.317 88.933 / 88.933 Balance 229.167 / 736.317 455 / 736.317 88.933 / 88.933 Intake: IV 229.167 / 416.317 135 / 416.317 88.933 / 88.933 Heparin Sodium/Dextrose 25,000 229.167 / 416.317 135 / 416.317 88.933 / 88.933 units In 500 ml @ 1,050 UNITS/ HR 21 mls/hr IV .[id number] ON LICENSE OF [facility] Rx #:[id number] Oral 320 / 320 Other: Weight 69.4 kg (2) HTN (hypertension) Hypertension type: primary hypertension Qualified Code(s): I10 - Essential (primary) hypertension
[2024-04-06 11:13] LABS: Chol HDL Ratio 3.1 (0-5)
[2024-04-06] MEDS ORDERED: NICOTINE POLACRILEX 2 MG GUM MT PRN (11:47)
[2024-04-06] MEDS: NICOTINE 21 MG/24 HR TDSY TD SCH (12:16)
--- NOTE | 2024-04-06 13:37 | Electrocardiogram Report ---
Test Reason : Blood Pressure : */* mmHG Vent. Rate : 72 BPM Atrial Rate : 72 BPM P-R Int : 132 ms QRS Dur : 80 ms QT Int : 450 ms P-R-T Axes : 74 94 97 degrees QTcB Int : 492 ms Normal sinus rhythm with sinus arrhythmia Rightward axis Old Septal infarct (cited on or before 05-Apr-2024) Minor Nonspecific ST abnormality Anterolateral leads Abnormal ECG When compared with ECG of 05-Apr-2024 13:03, Nonspecific ST abnormality now present Anterolateral leads Confirmed by Loi Becerra ([id number]) on 04/06/2024 1:37:13 PM Referred By: REFERRED SELF Confirmed By: Loi Becerra
--- NOTE | 2024-04-06 13:44 | Electrocardiogram Report ---
Test Reason : Blood Pressure : */* mmHG Vent. Rate : 75 BPM Atrial Rate : 75 BPM P-R Int : 138 ms QRS Dur : 74 ms QT Int : 384 ms P-R-T Axes : 54 100 79 degrees QTcB Int : 428 ms Normal sinus rhythm Rightward axis Minor Nonspecific ST abnormality Anterolateral leads Abnormal ECG When compared with ECG of 05-Apr-2024 15:47, Criteria for Septal infarct are no longer Present Confirmed by Loi Becerra ([id number]) on 04/06/2024 1:43:53 PM Referred By: REFERRED SELF Confirmed By: Loi Becerra
--- NOTE | 2024-04-06 16:30 | Cardiac Catheterization ---
[facility] Data: Medical Services Coordinator Cardiac Status Clinical evaluation leading to the procedure CAD Presenation: Non STEMI Anginal Classification: CCS IV Heart Failure: No Cardiogenic Shock within 24 Hours: No Cardiac Arrest within 24 Hours: No Imaging Studies Past 6 Months: No Coronary Anatomy Dominant: Right Left Main (% Stenosis): Proximal (Less than 50% versus bend) LAD (% Stenosis): Normal D1 (% Stenosis): Proximal (95%) D2 (% Stenosis): Normal Circumflex (% Stenosis): Mid (20 to 30% hazy) L PL1 (% Stenosis): Normal RCA (% Stenosis): Normal R PDA (% Stenosis): Normal R PL1 (% Stenosis): Normal Ramus (% Stenosis): Normal Diagnostic Physicians Name: Gerardo Feliz MD, PhD Closure Device Percutaneous Entry Location: Radial Closure Device: Radial Band Recommendations: Medical Therapy and/or Counseling Cardiac Cath Procedure Full Procedure Date April 05, 2024 Pre-Procedure Diagnosis Pre-Procedure Diagnosis: Non STEMI AUC Score AUC Score: 07 Post-Procedure Diagnosis Post-Procedure Diagnosis: Severe CAD Procedure(s) Performed Procedure(s) Performed: Coronary Angiography [employer] Employee Gerardo Feliz MD, PhD Estimated Blood Loss Estimated Blood Loss: 5 cc Medication(s) Medication(s): Diphenhydramine, Fentanyl, Heparin, Lidocaine 1%, Nicardipine, Nitroglycerin and Versed Summary of Findings Brief description: Patient was brought to the cardiac catheterization suite where she was shaved and prepped in a sterile fashion. Sedated using IV Versed and fentanyl. Soft tissues of the right wrist were anesthetized using 2 mL of 1% Xylocaine. The right radial artery was accessed with a modified Seldinger technique and a 6 [place] radial artery glide sheath was placed. Patient was provided anticoagulation with IV heparin and antispasmodics including nicardipine and nitroglycerin. All catheters were advanced and exchanged over a 0.035 J-tip wire. Left coronary angiography was performed in orthogonal views with a 5 [place] 4 diagnostic catheter. Right coronary angiography was performed in orthogonal views with a 5 [place] 4 diagnostic catheter. Diagnostic catheters were removed. We called to see if the area evacuation was available. It was not. However, the patient was completely asymptomatic and comfortable. Therefore, the right radial artery sheath was removed and hemostasis was obtained using the TR band. Patient then was returned to the recovery area in stable condition without any symptoms. This ended the case. Coronary angiography findings: OPY-[id number] vessel which trifurcates into LAD, circumflex, and ramus. The ostium is dilated and then there is a focal bend or possibly very narrow stenosis appearing less than 50% narrowed. LAD-this is large caliber and transapical. Proximal segment has no disease. It gives a medium caliber branching first diagonal. This has proximal up to 95% stenosis and there is GLENNY II flow to the branch vessels being on the lesion. The mid LAD has mild luminal irregularities. As the LAD approaches the apex there is a medium to large caliber long second diagonal. The remainder of the LAD and its branches have no angiographically significant disease. LCx-this is large caliber and nondominant. Travels in the AV groove where there is a mid hazy lesion of 20 to 30%. The circumflex essentially becomes a large multi branching PLB which is tortuous distally. This has only mild scattered plaques. Ramus-there are 2 small caliber relatively short branches. No disease. RCA-this is large caliber and dominant. Early hung's crook shape with mild luminal irregularities. Vessel continues distally where there is no disease and bifurcates into a large PDA and a medium to large branching posterolateral. These vessels also have no significant disease. Summary: 1. The first diagonal lesion is the culprit for the non-ST elevation MS. However the vessel is only about 1.5 to 2 mm in diameter. This increases risk for complications and the patient has no symptoms. Therefore, in the absence of available air evacuation capability we will hold off on PCI at this time. I will talk to Dr. Fuchs regarding attempted PCI at this facility tomorrow versus transfer to tertiary center as there may also be difficulty with air evacuation tomorrow. In the meantime we will try to optimize her medical therapy and keep her on a heparin drip to prevent occlusion of the vessel. 2. Recommend guideline directed medical therapy for secondary prevention of coronary disease to include low-dose aspirin, high intensity statin therapy, beta-thang, plus or minus SRIDEVI inhibitor/ARB as determined by primary paint roller winder. 3. I also recommend the patient stop smoking, participate in cardiac rehab, and follow a cardiac prudent diet. Hemodynamics Rest Ao:: 108/85 mmHg Final Ao: 116/84 mmHg LV: Not performed Recommendations Recommendations: Medical Therapy and/or Counseling Radiation Exposure (mGy) 429 mGy, fluoroscopy time 1.7 minutes Contrast (mls) 55 cc Anesthesia 2 mg Versed, 50 mcg fentanyl, 25 mg Benadryl. Start time 1148, end 1202 Procedural Complication(s) None Disposition Medical Services Coordinator Holding/Recovery I attest to the content of the Intraoperative Record and any orders documented therein. Any exceptions are noted below. [facility] Card Cath Procedure Codes Cardiac Catheterization Procedure 1: Cardiovascular Cath Procedures: 40880 Coronaries Moderate Sedation Procedure 1: Sedation/Anesthesia: 06855 Mod Sedation by the same physician;Init15 Min Child Age 5 & Up (Initial 15 minutes, start 1148, end 1202) PG Care Time/CCT Total # of Minutes Spent Total Time Spent with Patient: Total time spent is greater than 50% in coordination of care (as documented) at patient's floor/unit and/or counseling patient:
--- NOTE | 2024-04-06 16:57 | Cardiac Catheterization ---
[employer] Data: Loan Operations Manager Cardiac Status Clinical evaluation leading to the procedure CAD Presenation: Non STEMI Anginal Classification: CCS IV Heart Failure: No Cardiogenic Shock within 24 Hours: No Cardiac Arrest within 24 Hours: No Imaging Studies Past 6 Months: Yes Coronary Anatomy Dominant: Right Left Main (% Stenosis): Normal (See diagnostic cardiac cath report for details) Diagnostic Physicians Name: Gerardo Feliz MD, PhD Closure Device Percutaneous Entry Location: Femoral Closure Device: Angio-Seal Recommendations: Medical Therapy and/or Counseling and PCI without planned CABG PCI Indication: PCI for high risk Non-LONNY Lesion Segment Name: Proximal D1 Culprit Artery: Yes Stenosis Prior to Rx (%): 95% Chronic Total Occlusion: No Pre-Procedure GLENNY Flow: 2 Previously Treated Lesion: No Lesion Complexity: Non-High/Non-C Lesion Length (mm): 6 mm Thrombus Present: No Bifurcation Lesion: No Guidewire Across Lesion: Yes Intraprocedure Events Significant Disection: No Perforation: No Cardiac Cath Procedure Full Procedure Date April 05, 2024 Pre-Procedure Diagnosis Pre-Procedure Diagnosis: Non STEMI AUC Score AUC Score: 07 Post-Procedure Diagnosis Post-Procedure Diagnosis: Severe CAD and Successful PCI Procedure(s) Performed Procedure(s) Performed: Drug Eluting Stent and Ultrasound Guided Vascular Access Shot Lighter Gerardo Feliz MD, PhD Estimated Blood Loss Estimated Blood Loss: 5 cc Medication(s) Medication(s): Diphenhydramine, Fentanyl, Heparin, Lidocaine 1%, Nicardipine, Nitroglycerin and Versed Summary of Findings Patient had returned to her room and developed severe chest pain which was recalcitrant to medical therapy. Therefore, she was returned to the Loan Operations Manager for emergent PCI. Patient was brought to the cardiac catheterization suite where she was prepped in a sterile fashion. She was sedated using IV Versed, fentanyl, and Benadryl. Soft tissues of the right groin were anesthetized using 10 mL of 1% Xylocaine. Using the ultrasound for guidance (image saved), right femoral artery was accessed and a 6 [place] femoral artery sheath was placed. All catheters were advanced and exchanged over a 0.035 J-tip wire. A 6 [place] EBU 3.5 guide catheter was used to engage the left main coronary. ACT was checked and heparin was provided to maintain therapeutic anticoagulation. BMW dorsal guidewire was advanced through the guide catheter and passed across the lesion in the diagonal branch. Lesion was predilated with a 2.0 x 8 mm trek balloon at 8 javed x 2 inflations. The balloon was removed. Chart Reader angiography was performed. A 2.0 x 12 mm [place] drug-eluting stent was then advanced over the wire and positioned across the lesion where it was deployed at 12 javed. Stent balloon was then removed. Chart Reader angiography was performed. The guidewire was removed and final angiographic evaluation was performed. The guide catheter was then removed over the J-wire. Limited right femoral artery angiography was performed to evaluate for closure. Findings were favorable, therefore, the femoral artery sheath was exchanged for a 6 [place] Angio-Seal closure device. This was deployed in the recommended fashion. We obtained immediate hemostasis and the patient remained hemodynamically stable. She was then returned to her room in stable condition. This ended the case. PCI of D1 branch. 0% residual stenosis post PCI GLENNY-3 flow post PCI No evidence of dissection or perforation post PCI Summary: 1. Patient returned for emergent PCI of the diagonal given refractory angina and known severe diagonal lesion with GLENNY II flow. 2. Successful PCI with implantation of a single small caliber drug-eluting stent without complication. Good angiographic results and resolution of symptoms. 3. Patient will be on dual antiplatelet therapy with aspirin and Brilinta to complete 1 to 2 years therapy. 4. Will continue to titrate her guideline directed medical therapy. She will make lifestyle modifications including tobacco cessation, regular exercise, cardiac prudent diet, and we do also recommend participation in cardiac rehab after discharge. Hemodynamics Rest Ao:: 159/86 mmHg Final Ao: 141/89 mmHg LV: Not performed Recommendations Recommendations: Medical Therapy and/or Counseling and PCI without planned CABG Radiation Exposure (mGy) 820 mGy, fluoroscopy time 4.9 minutes Contrast (mls) 85 Anesthesia 2 mg Versed, 50 mcg fentanyl, 25 mg Benadryl. Start time 1442, end 1503 Procedural Complication(s) None Disposition Loan Operations Manager Holding/Recovery I attest to the content of the Intraoperative Record and any orders documented therein. Any exceptions are noted below. [facility] Card Cath Procedure Codes Therapeutic Services & Ancillary Procedure 1: Cardiovascular Tx and Anc Procedures: 27714 Ultrasonic Guidance Vascular Access Moderate Sedation Procedure 1: Sedation/Anesthesia: 84224 Mod Sedation by the same physician;Init15 Min Child Age 5 & Up (Initial 15 minutes, start time 1442) Procedure 2: Sedation/Anesthesia: 51715 Mod Sedation by the same physician; Ea [id number] Minutes (Additional 6 minutes, end 1503) Stenting Procedure 1: Cardiovascular Stent Procedures: 55542 Perc transluminal revascularization of acute sub/total occl, aMI (Diagonal) PG Care Time/CCT Total # of Minutes Spent Total Time Spent with Patient: Total time spent is greater than 50% in coordination of care (as documented) at patient's floor/unit and/or counseling patient:
[2024-04-07 07:17] VITALS: RESP 18
[2024-04-07 07:55] LABS: Basophils # (auto) 0.04 K/uL (0.00-0.20); Basophils % (auto) 0.5 %; Eosinophils # (auto) 0.08 K/uL (0.00-0.50); Eosinophils % (auto) 0.9 %; Hematocrit (blood only) 47.2 % (37.0-47.0); Hemoglobin 16.3 g/dl (12.0-16.0); Immature Granulocytes # (auto) 0.05 K/uL (0.01-0.20); Immature Granulocytes % (auto) 0.6 %; Lymphocytes # (auto) 1.51 K/uL (1.20-3.40); Lymphocytes % (auto) 17.4 %; Mean Corpuscular Hemoglobin 30.4 pg (25.0-34.0); Mean Corpuscular Hgb Conc 34.5 g/dL (32.0-36.0); Mean Corpuscular Volume 87.9 fL (80.0-100.0); Mean Platelet Volume 10.4 fL (9.4-12.4); Monocytes # (auto) 0.94 K/uL (0.11-0.59); Monocytes % (auto) 10.9 %; Neutrophils # (auto) 6.04 K/uL (1.40-6.50); Neutrophils % (auto) 69.7 %; Platelet Count 277 K/uL (130-400); RDW Coefficient of Variation 12.5 % (11.5-14.5); RDW Standard Deviation 40.4 fL (36.4-46.3); Red Blood Count 5.37 M/uL (4.20-5.40); White Blood Count 8.66 K/ul (4.8-10.8)
[2024-04-07 08:05] LABS: BUN Creatinine Ratio 37.3 (10-20); Calcium 9.5 mg/dl (8.6-10.3); Creatinine Clr Calc Pharmacy 86.8 ml/min; Potassium 4.5 mmol/L (3.5-5.1)
[2024-04-07] MEDS: ENOXAPARIN INJ 40 MG/0.4 ML SYR SQ SCH (08:13)
--- NOTE | 2024-04-07 11:07 | Cardiology Progress Note ---
Date of Service April 07, 2024 Assessment & Plan (1) NSTEMI (non-ST elevated myocardial infarction): (2) HTN (hypertension): Plan * NSTEMI, diagonal culprit, small vessel, for which patient underwent PCI, placement of a 2 mm x 12 mm [place] drug eluting stent, R femoral artery closure device. * Continue ASA 81 mg daily (lifelong therapy) * Brilinta for 1 year -will need rebate card. * Continue metoprolol, lisinopril, amlodipine, Rosuvastatin. * LDL 58 mg /dl * smoking cessation and cardiac rehab recommended. * Increase activity. * If able to walk in hallway, stable for DC to home this afternoon. * Case discussed with Dr Sabillon for the purpose of coordination of care. Admission and Anticipated Discharge Date Admission Date: April 03, 2024 Subjective Patient seen in cardiology follow up. Denies chest pain. Sinus rhythm with rates for the most part in the 70s noted on telemetry. Up to 110 bpm with bath and using the bathroom. Notes generalized fatigue. Physical Exam Physical Exam: General:ill in appearance HEENT: Normocephalic. Atraumatic. PERRL. EOMI. Conjunctiva and sclera clear. NECK: No carotid bruits. No JVD. Carotid upstrokes are brisk. Heart: RRR. S1 and S2 noted. No murmur. No rubs or gallops. PMI non displaced. Lungs: Clear to auscultation. No wheezes. No rhonchi. No rales. Abdomen: Normal bowel sounds. Soft. Nontender. No masses or organomegaly. No abdominal bruits. Extremities: No edema. No clubbing or cyanosis. -Right radial and right femoral artery c atheterization sites are clean, dry, and intact without ecchymosis NEURO: No focal deficits. PSYCH: Appropriate affect and insight. Results & Data Vital Signs (Past 12 Hours) Vital Signs Temp Pulse Pulse Resp BP Pulse Ox O2 Del Method 04/07/24 10:57 36.9 C 97 H 18 118/82 91 Room Air 04/07/24 09:00 Room Air 04/07/24 07:34 79 04/07/24 07:17 36.5 C 85 18 116/82 95 Room Air 04/07/24 02:27 36.8 C 86 17 111/76 95 Room Air Laboratory Results CBC 04/07/24 Range/Units 07:05 WBC 8.66 (4.8-10.8) K/ul RBC 5.37 (4.20-5.40) M/uL Hgb 16.3 H (12.0-16.0) g/dl Hct 47.2 H (37.0-47.0) % Plt Count 277 (130-400) K/uL Neut # (Auto) 6.04 (1.40-6.50) K/uL Lymph # (Auto) 1.51 (1.20-3.40) K/uL [place] # (Auto) 0.94 H (0.11-0.59) K/uL Eos # (Auto) 0.08 (0.00-0.50) K/uL Baso # (Auto) 0.04 (0.00-0.20) K/uL Comprehensive Metabolic Panel 04/07/24 Range/Units 07:05 Sodium 135 L (136-145) mmol/L Potassium 4.5 (3.5-5.1) mmol/L Chloride 99 (98-107) mmol/L Carbon Dioxide 30 (21-32) mmol/L BUN 22 (6-23) mg/dl Creatinine 0.59 L (0.6-1.2) mg/dl Glucose 180 H (70-99(Fasting)) mg/dl Calcium 9.5 (8.6-10.3) mg/dl Intake and Output 04/06/24 04/07/24 04/07/24 22:59 06:59 14:59 Intake Total 400 / 866.333 Balance 400 / 866.333 Intake: Oral 400 / 740 Other: Weight 69.4 kg 69.5 kg Weight Measurement Method Built in [facility] Diagnostic Findings EKG performed 04/06/2024 at 1004 and interpret independently revealed sinus rhythm at 75 bpm. T wave inversion limited to lead aVL. Compared to the previo us tracing, the age-indeterminate septal infarct pattern is no longer present. T wave inversion noted in lead I is no longer present. (2) HTN (hypertension) Hypertension type: primary hypertension Qualified Code(s): I10 - Essential (primary) hypertension
--- NOTE | 2024-04-07 12:02 | Discharge Summary ---
Discharge Summary Date of Service April 07, 2024 Principal Dx & Hospital Course #1 = Principal Diagnosis (1) NSTEMI (non-ST elevated myocardial infarction): (2) Diabetes mellitus type 2 with complications: (3) Coronary artery disease due to type 2 diabetes mellitus: (4) Bipolar 1 disorder: (5) Hypertension, essential: (6) Mixed hyperlipidemia: Plan Patient presented to the emergency room with chest pain and throat discomfort. The pain was on and off. She is also having some diaphoresis. Patient was admitted to the hospital concerns of acute coronary syndrome. Her initial troponin was low at 15.6. However second troponin significantly increased to 245. Subsequent troponins peaked at 8630 and has subsequently declined. She was started on IV heparin and cardiology consultation was obtained. Echocardiogram was performed. She was taken to the cardiac Assistant [employer] Service [facility]. Cardiac catheterization showed a small D1 lesion. Initially did not think it was amenable to intervention especially since we did not have the immediate ability to [facility] out to a higher level care if there would be vessel rupture. Patient was returned to her room however she started with severe angina. She was uncontrolled and she was immediately returned to the care of the Assistant Food Service Manager. They were able to stent the D1 lesion. Her postcardiac cath course was uneventful. And her symptoms resolved. Patient was started on dual antiplate let therapy the setting of the stent. Her postprocedure course continued to do well strength was improving. Vital signs stabilized. Other laboratory studies stabilized. Communication with cardiology on day of discharge reported that she should stay on the Brilinta and follow-up in their office. She will follow-up with her PCP for ongoing care of her diabetes and other medical issues. Notes For Next Care Provider Will need ongoing management of diabetes and dyslipidemia Follow-up with cardiology as coordinated through their office. Medication Changes From Visit Brilinta and aspirin for coronary artery disease and drug-eluting stent. Nicotine patch Admission HPI Per Admitting Provider 64-year-old female with past medical history significant for type 2 diabetes, hyperlipidemia, hiatal hernia, chronic bronchitis, hypertension, ventricular premature depolarization, history of rectal prolapse, history of major depression, bipolar 1 disorder, tobacco use disorder, alcohol dependence in remission, history of hepatitis C virus infection cured after antiviral drug therapy, medical marijuana use, presents with throat and chest pain. Patient says she is having pain in her throat region and also in the upper chest going on for last couple of days. The pain comes on its own. It is on and off. Its about 8/10 in severity. No sore throat or difficulty swallowing. Patient says she is having sweating. No nausea. No dizziness. Had headache earlier but resolved now. Vision is okay. No runny nose. No fevers. No abdominal pain. Normal bowel and bladder movements. Denies any blood in stools or black stools. Denies any hematuria. Ambulating okay. Patient denies any worsening of symptoms while ambulating. Patient recently was treated for COPD with azithromycin at end of January. Currently asymptomatic and resting comfortably. Past medical history. As mentioned above Past surgical history. Colonoscopy. Hemorrhoidectomy. Proctopexy. Social history. Smokes 0.5 pack a day for last 47 years. No alcohol use currently. Smokes marijuana as per [place]. Family history. No family history on file Admission Exam Per Admitting Provider See H&P Discharge Exam Constitutional: Alert, nontoxic HEENT: Mucous membranes moist. Lungs: Clear to auscultation, decreased, no wheezes rales or rhonchi CV: S1-S2, regular Abdomen: Soft, nontender, nondistended, right groin site of cardiac cath soft without significant hematoma. Extremities: No significant edema Neuro: No focal deficits Psych: Cooperative, normal mood Updated Medication List Medication Instructions Recorded Confirmed Type amlodipine 10 mg tablet 10 mg PO [facility] 05/21/18 04/03/24 History diclofenac sodium 75 mg 75 mg PO UD 05/21/18 04/03/24 History tablet,delayed release metoprolol succinate 50 mg 50 mg PO [facility] 05/21/18 04/03/24 History tablet,extended release 24 hr venlafaxine 150 mg 150 mg PO [facility] 05/21/18 04/03/24 History capsule,extended release 24 hr venlafaxine 75 mg tablet 75 mg PO [facility] 05/21/18 04/03/24 History empagliflozin 10 mg tablet 10 mg PO [facility] 06/30/22 04/03/24 History (Jardiance) lisinopril 40 mg tablet 20 mg PO [facility] 06/30/22 04/03/24 History metformin 500 mg tablet,extended 1,500 mg PO [facility] 06/30/22 04/03/24 History release 24 hr rosuvastatin 5 mg tablet 5 mg PO [facility] 06/30/22 04/03/24 History omeprazole 20 mg capsule,delayed 20 mg PO DAILY 04/03/24 04/03/24 History release tramadol 50 mg tablet 50 - 100 mg PO UD PRN pain 04/03/24 04/03/24 History aspirin 81 mg tablet,delayed 81 mg PO QAM #360 tabs 04/07/24 Rx release nicotine 21 mg/24 hr daily 1 patch transdermal QAM #14 ea 04/07/24 Rx transdermal patch (Nicoderm CQ) ticagrelor 90 mg tablet (Brilinta) 90 mg PO BID #60 tabs 04/07/24 Rx Hospital Stay Data Consultations 04/03/24 22:54 ED Decision to Admit Stat 04/04/24 08:00 Consult Cardiology Routine 04/07/24 11:19 Consult Cardiac Rehabilitation Routine Procedures Performed Operation Date: 04/05/24 14:00 Actual Procedures p Cineradiography w/Routine Exam - Gerardo eFliz MD, PhD s Drug Eluting Stent SGl Vessel - Gerardo Feliz MD, PhD Diagnostic Imagining Performed 04/03/24 15:35 CT chest diagnostic w con Stat CT soft tissue neck w con Stat 04/05/24 07:01 CL Cath Imgs for PACS use only Stat 04/05/24 14:08 CL Cath Imgs for PACS use only Stat Echocardiogram shows normal ejection fraction,60 to 65%. Some mild valvular abnormalities. No wall motion abnormalities. I free to the full report for details. Cardiac cath 4 shows stenting of the D1 lesion, refer to full report for details CT chest showed moderate hiatal hernia Some left lower lobe pulmonary nodules at 4 and 2 mm. No follow-up is necessary CT of the neck shows significant degenerative changes Electrolytes stable CBC stable Hemoglobin A1c 8.2% Triglycerides 135 Cholesterol 125 LDL 58 HDL 40 TSH 0.72 Pending Results Patient Have Any Pending Studies at Discharge: No Discharge Instructions Given to Patient (Per Discharging Provider) Stop smoking follow-up with cardiology Total Time Total Time Spent Total Time Spent (In Minutes): 36
[2024-04-07 15:21] VITALS: BP 115/80; PULSE 96; TEMP 97.9; O2SAT 93
[2024-04-07 15:47] LABS: Marijuana Quant, GCMS Urine 1709 ng/mL (<5)
== END 2024-04-07 18:10 | disposition home or self-care (01) | DRG 322 ==
LOC: ED 14:15 → SUATTDRO 23:04 → 2S 23:04
PROC: CLB.CCO (2024-04-05 11:00)